=== PATIENT | female | born 1950 | race Caucasian/White ===

== ENCOUNTER → 2017-09-19 08:53 | Outpatient (CLI) | payer MEDICARE, MEDICAID, SELFPAY | PROVIDERS: Family Provider Family Medicine Geriatric Medicine; PCP Family Medicine Geriatric Medicine; Visit Provider Family Medicine Geriatric Medicine | DX: E11.9 Type 2 diabetes mellitus without complications (principal); I10 Essential (primary) hypertension; E55.9 Vitamin D deficiency, unspecified ==

== ENCOUNTER → 2017-10-16 08:52 | Outpatient (CLI) | payer MEDICARE, MEDICAID, SELFPAY ==
[2017-10-16 13:16] LABS: Absolute Lymphocyte Count 2.47 X10^3/ul (0.83-4.51); Absolute Neutrophil Count 5.1 X10^3/uL (2.0-7.7); Basophil# 0.03 X10^3/uL; Basophil% 0.4 % (0-1); Eosinophil# 0.15 X10^3/uL; Eosinophils% 1.8 % (0-5); Hematocrit 43.8 % (37-47); Hemoglobin 14.5 g/dl (12.0-15.0); Lymphocyte # 2.47 X10^3/ul (4.0); Lymphocyte % 29.3 % (19-41); Mean Corp Hgb Conc 33.1 g/gl (32-36); Mean Corpuscular Volume 96.7 fL (81-99); Mean Platelet Vol. 11.5 fl (6.2-12.0); Monocyte# 0.61 X10^3/uL; Monocyte% 7.2 % (0-10); Neutrophil # 5.13 X10^3/uL (2.7-7.7); Neutrophil % 60.7 % (47-70); POSITIVE COUNT NO; POSITIVE DIFFERENTIAL NO; POSITIVE MORPHOLOGY NO; Platelet Count 255 K/mm3 (150-450); RBC Distribution Width CV 12.7 % (11.6-14.6); RBC Distribution Width SD 43.9 fl (35.1-43.9); Red Blood Count 4.53 M/mm3 (4.2-5.4); White Blood Count 8.4 K/mm3 (4.4-11.0)
[2017-10-16 13:34] LABS: ALB/GLOB Ratio 0.9 RATIO (0.9-2.4); AST(SGOT) 13 U/L (15-37); Alanine Aminotransfer ALT/SGPT 24 U/L (13-56); Albumin, Serum 3.5 g/dL (3.2-5.0); Alkaline Phosphatase 101 U/L (45-117); Anion Gap 10 (5-15); BUN 16 mg/dL (7-18); BUN/Creat Ratio 19.1 RATIO (10-20); Chloride 108 mmol/L (98-107); Creatinine, Serum 0.84 mg/dL (0.55-1.02); EST Glomerular Filtration Rate 72 mL/min (>60); Est Glom Filt Rate - Afr Amer 87 mL/min (>60); Globulin 3.7 g/dL (2.2-4.2); Glucose 114 mg/dL (74-106); Potassium 4.2 mmol/L (3.5-5.1); Protein, Total 7.2 g/dL (6.4-8.2); Sodium Level 140 mmol/L (136-145)
[2017-10-18 12:47] LABS: Hep C Antibodies <0.1 s/co ratio (0.0-0.9)
== END ==
PROVIDERS: Family Provider Family Medicine Geriatric Medicine; PCP Family Medicine Geriatric Medicine; Visit Provider Family Medicine Geriatric Medicine
DX: E11.9 Type 2 diabetes mellitus without complications (principal); I10 Essential (primary) hypertension; E55.9 Vitamin D deficiency, unspecified; Z13.89 Encounter for screening for other disorder
CPT/HCPCS: 36415; 80053; 82306; 84443; 85025; 86803

== ENCOUNTER → 2017-10-18 08:22 | Outpatient (CLI) | payer MEDICARE, MEDICAID, SELFPAY ==
--- NOTE | 2017-10-18 08:27 | BD_ITS ---
STUDY: DUAL ENERGY X-RAY ABSORPTIOMETRY / DXA REASON FOR EXAM: Female, 67 years old. TYPE 2 DIABETIC- TAKES METFORMIN AND LANTUS SMOKER TAKES LASIX TAKES CALCIUM EVERY ONCE IN A WHILE DOES LITTLE EXERCISE UMU OF 2.5 INCHES. TECHNIQUE: Bone Mineral Density (BMD) measurements of lumbar spine and bilateral hips were obtained. COMPARISON: None. FINDINGS: Lumbar Spine (L1-L4): g/cm2 (1.4) / T-score (1.7) / Z-score (3.3) Findings are suggestive of normal bone density with a low fracture risk. Left Femur Total: g/cm2 (1.0) / T-score (0.0) / Z-score (1.3) Left Femoral Neck: g/cm2 (0.9) / T-score (-0.7) / Z-score (0.9) Right Femur Total: g/cm2 (1.0) / T-score (0.2) / Z-score (1.5) Right Femoral Neck: g/cm2 (0.9) / T-score (-0.8) / Z-score (0.8) BD/Dexa Bone Density Study IMPRESSION: The patient is considered normal as outlined below according to World Keith Organization (WHO) criteria with a low fracture risk. There has been of bone density since the previous examination. Reference Information: The T-score is the number of standard deviations above or below the standard which is normal for young adults at their peak bone mineral density. The World Health Organization (WHO) interprets the T-scores as follows: Above -1 Normal bone density Between -1 and -2.5 Osteopenia Equal to / or below -2.5 Osteoporosis As a practical clinical guideline, osteopenia may be graded as follows: Mild -1 through -1.5 Moderate -1.6 through -2.0 Severe -2.1 through -2.4 The Z-score is the number of standard deviations above or below age-matched controls. A Z-score of less than -1.5 would be considered abnormal. References: 1. NIH Osteoporosis and Related Bone Diseases http://www.osteo.org 2. International Society for Clinical Densitometry http://www.iscd.org 3. National Osteoporosis Foundation http://www.nof.org Electronically Signed: Grover Lee DO at 9:06 EDT , Service support ,
== END ==
PROVIDERS: Family Provider Family Medicine Geriatric Medicine; PCP Family Medicine Geriatric Medicine; Visit Provider Family Medicine Geriatric Medicine
DX: Z78.0 Asymptomatic menopausal state (principal)
CPT/HCPCS: 77080

== ENCOUNTER → 2018-04-17 14:54 | Outpatient (CLI) | payer MEDICARE, MEDICAID, SELFPAY ==
[2018-04-17 16:45] LABS: Absolute Lymphocyte Count 2.24 X10^3/ul (0.83-4.51); Absolute Neutrophil Count 4.3 X10^3/uL (2.0-7.7); Basophil# 0.03 X10^3/uL; Basophil% 0.4 % (0-1); Eosinophil# 0.11 X10^3/uL; Eosinophils% 1.5 % (0-5); Hematocrit 42.2 % (37-47); Hemoglobin 13.4 g/dl (12.0-15.0); Lymphocyte # 2.24 X10^3/ul (4.0); Lymphocyte % 30.7 % (19-41); Mean Corp Hgb Conc 31.8 g/gl (32-36); Mean Corpuscular Hgb 31.9 pg (27.0-32.0); Mean Corpuscular Volume 100.5 fL (81-99); Mean Platelet Vol. 11.9 fl (6.2-12.0); Monocyte# 0.54 X10^3/uL; Monocyte% 7.4 % (0-10); Neutrophil # 4.34 X10^3/uL (2.7-7.7); Neutrophil % 59.6 % (47-70); POSITIVE COUNT NO; POSITIVE DIFFERENTIAL NO; POSITIVE MORPHOLOGY NO; Platelet Count 220 K/mm3 (150-450); RBC Distribution Width CV 12.7 % (11.6-14.6); RBC Distribution Width SD 45.7 fl (35.1-43.9); White Blood Count 7.3 K/mm3 (4.4-11.0)
[2018-04-17 17:00] LABS: ALB/GLOB Ratio 1.1 RATIO (0.9-2.4); AST(SGOT) 10 U/L (15-37); Alanine Aminotransfer ALT/SGPT 26 U/L (13-56); Albumin, Serum 3.4 g/dL (3.2-5.0); Alkaline Phosphatase 92 U/L (45-117); Anion Gap 10 (5-15); BUN 10 mg/dL (7-18); Calcium,Total 8.8 mg/dL (8.5-10.1); Chloride 109 mmol/L (98-107); Creatinine, Serum 0.77 mg/dL (0.55-1.02); EST Glomerular Filtration Rate 79 mL/min (>60); Est Glom Filt Rate - Afr Amer 96 mL/min (>60); Glucose 104 mg/dL (74-106); Potassium 4.9 mmol/L (3.5-5.1); Protein, Total 6.4 g/dL (6.4-8.2); Sodium Level 142 mmol/L (136-145); Thyroid Stim Hormone (TSH) 1.51 uIU/mL (0.358-3.74)
[2018-04-17 17:46] LABS: Vitamin D,25 Hydroxy 36.1 ng/mL (29.95-100.01)
== END ==
PROVIDERS: Family Provider Family Medicine Geriatric Medicine; PCP Family Medicine Geriatric Medicine; Visit Provider Family Medicine Geriatric Medicine
DX: E11.9 Type 2 diabetes mellitus without complications (principal); E55.9 Vitamin D deficiency, unspecified; I10 Essential (primary) hypertension
CPT/HCPCS: 36415; 80053; 82306; 84443; 85025

== ENCOUNTER 2018-05-29 08:53 | Outpatient (RCR) | payer MEDICARE, SELFPAY | END 2018-06-24 23:59 | LOC: WC 08:53 | PROVIDERS: Family Provider Family Medicine Geriatric Medicine; PCP Family Medicine Geriatric Medicine; Visit Provider Podiatrist | DX: Z09 Encounter for follow-up examination after completed treatment for conditions other than malignant neoplasm (principal) ==

== ENCOUNTER → 2018-10-17 11:26 | Outpatient (CLI) | payer MEDICARE, SELFPAY ==
[2018-10-17 12:30] LABS: Absolute Lymphocyte Count 2.29 X10^3/ul (0.83-4.51); Absolute Neutrophil Count 4.8 X10^3/uL (2.0-7.7); Basophil# 0.02 X10^3/uL; Basophil% 0.3 % (0-1); Eosinophils% 1.3 % (0-5); Hematocrit 44.9 % (37-47); Hemoglobin 14.5 g/dl (12.0-15.0); Lymphocyte # 2.29 X10^3/ul (4.0); Lymphocyte % 29.1 % (19-41); Mean Corp Hgb Conc 32.3 g/gl (32-36); Mean Corpuscular Hgb 31.2 pg (27.0-32.0); Mean Corpuscular Volume 96.6 fL (81-99); Mean Platelet Vol. 11.4 fl (6.2-12.0); Monocyte# 0.57 X10^3/uL; Monocyte% 7.2 % (0-10); Neutrophil # 4.83 X10^3/uL (2.7-7.7); Neutrophil % 61.3 % (47-70); Platelet Count 222 K/mm3 (150-450); RBC Distribution Width CV 12.5 % (11.6-14.6); Red Blood Count 4.65 M/mm3 (4.2-5.4); White Blood Count 7.9 K/mm3 (4.4-11.0)
[2018-10-17 12:33] LABS: POSITIVE COUNT NO; POSITIVE DIFFERENTIAL NO; POSITIVE MORPHOLOGY NO
[2018-10-17 12:47] LABS: Vitamin D,25 Hydroxy 58.7 ng/mL (29.95-100.01)
[2018-10-17 13:13] LABS: AST(SGOT) 16 U/L (15-37); Alanine Aminotransfer ALT/SGPT 28 U/L (13-56); Albumin, Serum 3.6 g/dL (3.2-5.0); Alkaline Phosphatase 93 U/L (45-117); Anion Gap 11 (5-15); BUN 12 mg/dL (7-18); BUN/Creat Ratio 13.6 RATIO (10-20); Chloride 106 mmol/L (98-107); Creatinine, Serum 0.88 mg/dL (0.55-1.02); EST Glomerular Filtration Rate 68 mL/min (>60); Est Glom Filt Rate - Afr Amer 82 mL/min (>60); Globulin 3.6 g/dL (2.2-4.2); Glucose 138 mg/dL (74-106); Potassium 4.2 mmol/L (3.5-5.1); Protein, Total 7.2 g/dL (6.4-8.2); Sodium Level 138 mmol/L (136-145); Thyroid Stim Hormone (TSH) 1.43 uIU/mL (0.358-3.74)
== END ==
PROVIDERS: Family Provider Family Medicine Geriatric Medicine; PCP Family Medicine Geriatric Medicine; Visit Provider Family Medicine Geriatric Medicine
DX: E11.9 Type 2 diabetes mellitus without complications (principal); I10 Essential (primary) hypertension; E55.9 Vitamin D deficiency, unspecified
CPT/HCPCS: 36415; 80053; 82306; 84443; 85025

== ENCOUNTER → 2019-01-21 11:49 | Outpatient (CLI) | payer MEDICARE, SELFPAY ==
[2019-01-21 13:00] LABS: Absolute Lymphocyte Count 2.48 X10^3/uL (0.83-4.51); Absolute Neutrophil Count 5.5 X10^3/uL (2.0-7.7); Basophil# 0.06 X10^3/uL; Basophil% 0.7 % (0-1); Eosinophil# 0.11 X10^3/uL; Eosinophils% 1.2 % (0-5); Hematocrit 43.4 % (37-47); Hemoglobin 14.2 g/dL (12.0-15.0); Lymphocyte # 2.48 X10^3/ul (4.0); Mean Corp Hgb Conc 32.7 g/dL (32-36); Mean Corpuscular Hgb 31.7 pg (27.0-32.0); Mean Corpuscular Volume 96.9 fL (81-99); Mean Platelet Vol. 11.6 fl (6.2-12.0); Monocyte# 0.63 X10^3/uL; Monocyte% 7.1 % (0-10); NRBC Flagged by Analyzer 0 % (0-5); Neutrophil # 5.54 X10^3/uL (2.7-7.7); Neutrophil % 62.4 % (47-70); Platelet Count 249 K/mm3 (150-450); RBC Distribution Width CV 12.4 % (11.6-14.6); RBC Distribution Width SD 44.1 fl (35.1-43.9); Red Blood Count 4.48 M/mm3 (4.2-5.4); White Blood Count 8.9 K/mm3 (4.4-11.0)
[2019-01-21 13:14] LABS: Vitamin D,25 Hydroxy 75.9 ng/mL (29.95-100.01)
[2019-01-21 13:38] LABS: AST(SGOT) 12 U/L (15-37); Alanine Aminotransfer ALT/SGPT 26 U/L (13-56); Albumin, Serum 3.6 g/dL (3.2-5.0); Alkaline Phosphatase 87 U/L (45-117); Anion Gap 10 (5-15); BUN 14 mg/dL (7-18); BUN/Creat Ratio 13.9 RATIO (10-20); Calcium,Total 9.3 mg/dL (8.5-10.1); Chloride 107 mmol/L (98-107); Creatinine, Serum 1.01 mg/dL (0.55-1.02); EST Glomerular Filtration Rate 58 mL/min (>60); Est Glom Filt Rate - Afr Amer 70 mL/min (>60); Globulin 3.7 g/dL (2.2-4.2); Glucose 153 mg/dL (74-106); Potassium 4.3 mmol/L (3.5-5.1); Protein, Total 7.3 g/dL (6.4-8.2); Sodium Level 139 mmol/L (136-145); Thyroid Stim Hormone (TSH) 2.09 uIU/mL (0.358-3.74)
== END ==
PROVIDERS: Family Provider Family Medicine Geriatric Medicine; PCP Family Medicine Geriatric Medicine; Visit Provider Family Medicine Geriatric Medicine
DX: E11.9 Type 2 diabetes mellitus without complications (principal); I10 Essential (primary) hypertension; E55.9 Vitamin D deficiency, unspecified
CPT/HCPCS: 36415; 80053; 82306; 84443; 85025

== ENCOUNTER → 2019-04-24 12:05 | Outpatient (CLI) | payer MEDICARE, SELFPAY ==
[2019-04-24 12:43] LABS: Absolute Lymphocyte Count 2.49 X10^3/uL (0.83-4.51); Absolute Neutrophil Count 4.8 X10^3/uL (2.0-7.7); Basophil# 0.05 X10^3/uL; Basophil% 0.6 % (0-1); Eosinophil# 0.31 X10^3/uL; Eosinophils% 3.7 % (0-5); Hemoglobin 13.8 g/dL (12.0-15.0); Lymphocyte # 2.49 X10^3/ul (4.0); Mean Corp Hgb Conc 32.1 g/dL (32-36); Mean Corpuscular Hgb 31.6 pg (27.0-32.0); Mean Corpuscular Volume 98.4 fL (81-99); Mean Platelet Vol. 11.3 fl (6.2-12.0); Monocyte# 0.62 X10^3/uL; Monocyte% 7.5 % (0-10); NRBC Flagged by Analyzer 0 % (0-5); Neutrophil # 4.76 X10^3/uL (2.7-7.7); Neutrophil % 57.4 % (47-70); Platelet Count 247 K/mm3 (150-450); RBC Distribution Width CV 11.9 % (11.6-14.6); RBC Distribution Width SD 43.6 fl (35.1-43.9); Red Blood Count 4.37 M/mm3 (4.2-5.4); White Blood Count 8.3 K/mm3 (4.4-11.0)
[2019-04-24 12:56] LABS: Vitamin D,25 Hydroxy 82.4 ng/mL (29.95-100.01)
[2019-04-24 13:02] LABS: ALB/GLOB Ratio 0.9 RATIO (0.9-2.4); AST(SGOT) 16 U/L (15-37); Alanine Aminotransfer ALT/SGPT 26 U/L (13-56); Albumin, Serum 3.3 g/dL (3.2-5.0); Alkaline Phosphatase 93 U/L (45-117); Anion Gap 9 (5-15); BUN 12 mg/dL (7-18); BUN/Creat Ratio 14.2 RATIO (10-20); Chloride 106 mmol/L (98-107); Creatinine, Serum 0.84 mg/dL (0.55-1.02); EST Glomerular Filtration Rate 71 mL/min (>60); Est Glom Filt Rate - Afr Amer 86 mL/min (>60); Globulin 3.8 g/dL (2.2-4.2); Glucose 176 mg/dL (74-106); Potassium 4.6 mmol/L (3.5-5.1); Protein, Total 7.1 g/dL (6.4-8.2); Sodium Level 139 mmol/L (136-145); Thyroid Stim Hormone (TSH) 1.79 uIU/mL (0.358-3.74)
== END ==
PROVIDERS: Family Provider Family Medicine Geriatric Medicine; PCP Family Medicine Geriatric Medicine; Visit Provider Family Medicine Geriatric Medicine
DX: E11.9 Type 2 diabetes mellitus without complications (principal); I10 Essential (primary) hypertension; E55.9 Vitamin D deficiency, unspecified
CPT/HCPCS: 36415; 80053; 82306; 84443; 85025

== ENCOUNTER → 2019-11-19 11:03 | Outpatient (CLI) | payer MEDICARE, SELFPAY ==
[2019-11-19 12:44] LABS: Absolute Lymphocyte Count 2.46 X10^3/uL (0.83-4.51); Absolute Neutrophil Count 5.8 X10^3/uL (2.0-7.7); Basophil# 0.05 X10^3/uL; Basophil% 0.5 % (0-1); Eosinophil# 0.17 X10^3/uL; Eosinophils% 1.8 % (0-5); Lymphocyte # 2.46 X10^3/ul (4.0); Lymphocyte % 26.7 % (19-41); Mean Corp Hgb Conc 31.8 g/dL (32-36); Mean Corpuscular Volume 97.6 fL (81-99); Mean Platelet Vol. 11.2 fl (6.2-12.0); Monocyte% 7.6 % (0-10); NRBC Flagged by Analyzer 0 % (0-5); Neutrophil # 5.78 X10^3/uL (2.7-7.7); Platelet Count 266 K/mm3 (150-450); RBC Distribution Width CV 12.9 % (11.6-14.6); RBC Distribution Width SD 46.4 fl (35.1-43.9); Red Blood Count 4.51 M/mm3 (4.2-5.4); White Blood Count 9.2 K/mm3 (4.4-11.0)
[2019-11-19 13:18] LABS: Vitamin D,25 Hydroxy 60.8 ng/mL
[2019-11-19 13:38] LABS: ALB/GLOB Ratio 0.9 RATIO (0.9-2.4); AST(SGOT) 22 U/L (15-37); Alanine Aminotransfer ALT/SGPT 33 U/L (13-56); Albumin, Serum 3.4 g/dL (3.2-5.0); Alkaline Phosphatase 85 U/L (45-117); Anion Gap 9 (5-15); BUN 18 mg/dL (7-18); BUN/Creat Ratio 19.6 RATIO (10-20); Calcium,Total 8.9 mg/dL (8.5-10.1); Chloride 105 mmol/L (98-107); Creatinine, Serum 0.92 mg/dL (0.55-1.02); EST Glomerular Filtration Rate 64 mL/min (>60); Est Glom Filt Rate - Afr Amer 78 mL/min (>60); Globulin 3.8 g/dL (2.2-4.2); Glucose 123 mg/dL (74-106); Potassium 4.3 mmol/L (3.5-5.1); Protein, Total 7.2 g/dL (6.4-8.2); Sodium Level 135 mmol/L (136-145)
== END ==
PROVIDERS: PCP Family Medicine Geriatric Medicine; Visit Provider Family Medicine Geriatric Medicine
DX: E11.9 Type 2 diabetes mellitus without complications (principal); I10 Essential (primary) hypertension; E55.9 Vitamin D deficiency, unspecified
CPT/HCPCS: 36415; 80053; 82306; 84443; 85025

== ENCOUNTER → 2020-04-29 08:56 | Outpatient (CLI) | payer MEDICARE, SELFPAY ==
[2020-04-29 12:21] LABS: Absolute Lymphocyte Count 1.57 X10^3/uL (0.83-4.51); Basophil# 0.04 X10^3/uL; Basophil% 0.3 % (0-1); Eosinophil# 0.03 X10^3/uL; Eosinophils% 0.3 % (0-5); Hematocrit 41.2 % (37-47); Hemoglobin 12.9 g/dL (12.0-15.0); Lymphocyte # 1.57 X10^3/ul (4.0); Lymphocyte % 13.5 % (19-41); Mean Corp Hgb Conc 31.3 g/dL (32-36); Mean Corpuscular Hgb 31.2 pg (27.0-32.0); Mean Corpuscular Volume 99.8 fL (81-99); Mean Platelet Vol. 10.3 fl (6.2-12.0); Monocyte# 0.87 X10^3/uL; Monocyte% 7.5 % (0-10); NRBC Flagged by Analyzer 0 % (0-5); Neutrophil # 9.03 X10^3/uL (2.7-7.7); Platelet Count 295 K/mm3 (150-450); RBC Distribution Width CV 12.8 % (11.6-14.6); RBC Distribution Width SD 46.8 fl (35.1-43.9); Red Blood Count 4.13 M/mm3 (4.2-5.4); White Blood Count 11.6 K/mm3 (4.4-11.0)
[2020-04-29 12:32] LABS: ALB/GLOB Ratio 0.6 RATIO (0.9-2.4); AST(SGOT) 12 U/L (15-37); Alanine Aminotransfer ALT/SGPT 18 U/L (13-56); Albumin, Serum 2.8 g/dL (3.2-5.0); Alkaline Phosphatase 97 U/L (45-117); Anion Gap 8 (5-15); BUN 15 mg/dL (7-18); BUN/Creat Ratio 16.9 RATIO (10-20); Calcium,Total 9.1 mg/dL (8.5-10.1); Chloride 103 mmol/L (98-107); Creatinine, Serum 0.89 mg/dL (0.55-1.02); EST Glomerular Filtration Rate 67 mL/min (>60); Est Glom Filt Rate - Afr Amer 81 mL/min (>60); Globulin 4.8 g/dL (2.2-4.2); Glucose 121 mg/dL (74-106); Protein, Total 7.6 g/dL (6.4-8.2); Sodium Level 137 mmol/L (136-145); Thyroid Stim Hormone (TSH) 1.39 uIU/mL (0.358-3.74); Uric Acid 4.6 mg/dL (2.6-6.0)
[2020-04-29 12:58] LABS: Erythrocyte Sedimentation Rate 93 mm/hr (0-30)
[2020-04-29 13:39] LABS: M R Staph aureus DNA By PCR POSITIVE (Negative); Probe Check PASS; Staph aureus DNA By PCR POSITIVE (Negative)
[2020-04-29 13:45] LABS: Vitamin D,25 Hydroxy 36.3 ng/mL
--- NOTE | 2020-04-29 14:22 | VDUE_ITS ---
Reason For Study: PAIN Left Proximal Left jugular vein is spontaneous, widely patent, phasic, with no intraluminal echogenicity noted. Left subclavian vein is spontaneous, widely patent, phasic, with no intraluminal echogenicity noted. Left Arm Left axillary vein is spontaneous, patent, phasic, competent, compressible and demonstrates augmentation. Left brachial vein is compressible. Left cephalic vein is compressible. Left basilic vein is compressible. Left Lower Arm Left radial vein is compressible. Left ulnar vein is compressible. Interpretation Summary Deep veins of the left upper extremity are patent and compressible segmentally. There is no evidence of deep vein thrombosis. The superficial veins of the left upper extremity, the basilic and cephalic veins, are patent and compressible. There is no evidence of left upper extremity superficial thrombophlebitis involving the veins imaged. Ordering Physician: Ankush Rios Referring Physician: ANKUSH RIOS Performed By: Mare Moise, EMIR, RVT ?
--- NOTE | 2020-04-29 15:10 | RAD_ITS ---
STUDY: X-RAY - LEFT HAND REASON FOR EXAM: Female, 70 years old. patient states she has had swelling of third digit x 2 days, no injury, wound to tip of finger, swelling has spread to whole hand as well TECHNIQUE: 3 view(s) of the hand. COMPARISON: None. FINDINGS: Normal radiocarpal articulation. Normal distal radioulnar joint. Normal visualized carpal bones. 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 Normal second through fifth carpometacarpal joints. Normal metacarpi. Normal metacarpophalangeal joint of the thumb. Normal interphalangeal joint of the thumb. Normal proximal and distal phalanges of the thumb. Normal metacarpophalangeal joints of the second through fifth fingers. Normal proximal and distal interphalangeal joints of the second through fifth fingers. Destruction of the more Jorde of the third distal phalanx as well as areas of cortical destruction of the head of the middle phalanx consistent with osteomyelitis. Soft tissue swelling of the third digit consistent with cellulitis. RAD/Hand Min 3 Views IMPRESSION: Cellulitis of the third digit with osteomyelitis of the middle and distal phalanges with destruction of the majority of the distal phalanx. Electronically Signed: Marshall Martinez MD at 15:32 EST Tel , Service support ,
== END ==
PROVIDERS: PCP Family Medicine Geriatric Medicine; Visit Provider Family Medicine Geriatric Medicine
DX: E11.9 Type 2 diabetes mellitus without complications (principal); I10 Essential (primary) hypertension; E55.9 Vitamin D deficiency, unspecified; M79.622 Pain in left upper arm; M10.9 Gout, unspecified; L03.019 Cellulitis of unspecified finger; B95.62 Methicillin resistant Staphylococcus aureus infection as the cause of diseases classified elsewhere; M79.609 Pain in unspecified limb
CPT/HCPCS: 36415; 73130; 80053; 82306; 84443; 84550; 85025; 85652; 86140; 87070; 87077; 87186; 87205; 87640; 93971

== ENCOUNTER 2020-04-30 09:12 | Emergency (ER) | payer MEDICARE, SELFPAY ==
[2020-04-30 09:12] VITALS: BP 123/73; PULSE 91; RESP 15; TEMP 36.6; O2SAT 98; BMI 46.4
--- NOTE | 2020-04-30 11:15 | RAD_ITS ---
STUDY: X-RAY - LEFT HAND REASON FOR EXAM: Female, 70 years old. CELLULITIS TECHNIQUE: 3 view(s) of the hand. COMPARISON: 04/29/2020 FINDINGS: Normal radiocarpal articulation. Normal distal radioulnar joint. Normal visualized carpal bones. 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 Normal second through fifth carpometacarpal joints. Normal metacarpi. Normal metacarpophalangeal joint of the thumb. Normal interphalangeal joint of the thumb. Normal proximal and distal phalanges of the thumb. Normal metacarpophalangeal joints of the second through fifth fingers. Normal proximal and distal interphalangeal joints of the second through fifth fingers. Normal phalanges of the second fourth fifth fingers. Diffuse soft tissue swelling of the third digit consistent with cellulitis. There is no change in the destruction of the distal phalanx and the head of the middle phalanx consistent with osteomyelitis. RAD/Hand Min 3 Views IMPRESSION: No change in cellulitis of the third digit with osteomyelitis of the middle and distal phalanges. Electronically Signed: Marshall Martinez MD at 11:37 EST Tel , Service support ,
--- NOTE | 2020-04-30 12:11 | ED.DCSUM_ITS ---
History of Present Illness Chief Complaint: Cellulitis Narrative: Patient presenting for evaluation secondary to an infection of the left hand. Patient does have an underlying history of diabetes. She reports that she has been dealing with swelling of her long digit on left hand for quite some time, but over the course of the last week the swelling got worse, and over the course of the last 2 days she noted that there was some spreading redness and swelling of the top of her hand. She denies constitutional symptoms such as fever nausea vomiting diarrhea. Patient went to her primary care yesterday who did lab work and an x-ray which demonstrated osteomyelitis and positive MRSA in the finger and recommended that she come to the emergency department for IV antibiotics and likely admission. Review of systems otherwise negative. Past Medical History - Allergies and Home Meds Allergies/Adverse Reactions: Allergies Sulfa (Sulfonamide Antibiotics) Allergy (Verified 04/30/20 09:16) Shortness of breath Prior records reviewed: Yes Past Medical History: - - Diabetes, hypertension Lives: Alone Smoking Status: Current every day smoker Alcohol: None Drugs: None Review of Systems All systems negative except as indicated General: Denies: Chills, Fever, Sweats Eyes: Denies: Visual changes - bilaterally, Diplopia ENT: Denies: Rhinorrhea, Sore throat Cardiovascular: Denies: Chest pain, Palpitations Respiratory: Denies: Dyspnea, Cough, Dyspnea on exertion Gastrointestinal: Denies: Abdominal pain, Nausea, Vomiting, Diarrhea, Melena, Hematochezia Genitourinary: Denies: Dysuria, Hematuria, Frequency Musculoskeletal: Reports: Extremity Pain Skin: Reports: Rash Neurological: Denies: Headache, Weakness, Numbness Physical Exam Vital Signs/Narrative: Vital Signs Temp Pulse Resp BP Pulse Ox 04/30/20 09:12 97.9 F 91 15 123/73 H 98 Inital Vital Signs reviewed: Yes Left Hand: - - Examination of patient's left hand shows fusiform swelling of the patient's long digit. There is purulent drainage coming from the distal portion of the patient's finger with complete obliteration of the nailbed. No evidence of pain along the flexor tendon. There is erythematous changes over the General: Well nourished, Well developed, Obese Head: Normocephalic, Atraumatic Eyes: Perrl, EOMI Neck: Nontender, Full ROM Cardiovascular: Regular rate, Regular rhythm, No murmurs, - - 2+ radial pulses bilaterally symmetric Respiratory: No distress, CTA bilaterally, Chest nontender Abdomen: Soft, Nontender, Nondistended, Normal bowel sounds Skin: Rash Neurological: Alert, Oriented x3, Cranial nerves II-XII grossly intact, Normal Strength, Normal Sensation Psychological: Normal affect Diagnostic/Tx/Re-eval Clinical Impression(s) from Imaging Studies Hand X-Ray 04/30/20 11:15 IMPRESSION: No change in cellulitis of the third digit with osteomyelitis of the middle and distal phalanges. Electronically Signed: Marshall Martinez MD at 11:37 EST Tel , Service support , - Medical Decision Making Patient presented secondary to osteomyelitis and cellulitis. IV was established cultures were obtained. I reviewed the patient's records from yesterday, the x- ray does demonstrate osteomyelitis this was reconfirmed on an x-ray today. She has a leukocytosis and elevated of her ESR and CRP yesterday. Patient was given a dose of vancomycin in the emergency department. Plastic surgery was not able to provide consultation today, I consulted general orthopedics Dr. Waters who did state that he would see the patient in consultation should she need amputation of the finger. I believe the patient requires admission I discussed this with the hospitalist. After discussion with the hospitalist he did come down and evaluate the patient he would feel more comfortable if the patient was evaluated at a facility that had hand surgery on-call. Patient requested to be transferred to [facility]. ED Disposition - Plan for ED Patient: Disposition: [facility] Diagnosis: Osteomyelitis of finger of left hand
[2020-04-30 12:15] LABS: Absolute Lymphocyte Count 2.07 X10^3/uL (0.83-4.51); Absolute Neutrophil Count 9.2 X10^3/uL (2.0-7.7); Basophil# 0.04 X10^3/uL; Basophil% 0.3 % (0-1); Eosinophil# 0.04 X10^3/uL; Eosinophils% 0.3 % (0-5); Hematocrit 43.9 % (37-47); Hemoglobin 13.8 g/dL (12.0-15.0); Lymphocyte # 2.07 X10^3/ul (4.0); Lymphocyte % 17.1 % (19-41); Mean Corp Hgb Conc 31.4 g/dL (32-36); Mean Corpuscular Hgb 31.3 pg (27.0-32.0); Mean Corpuscular Volume 99.5 fL (81-99); Mean Platelet Vol. 9.8 fl (6.2-12.0); Monocyte% 5.8 % (0-10); NRBC Flagged by Analyzer 0 % (0-5); Neutrophil # 9.18 X10^3/uL (2.7-7.7); Neutrophil % 75.9 % (47-70); Platelet Count 324 K/mm3 (150-450); RBC Distribution Width CV 12.7 % (11.6-14.6); RBC Distribution Width SD 46.8 fl (35.1-43.9); Red Blood Count 4.41 M/mm3 (4.2-5.4); White Blood Count 12.1 K/mm3 (4.4-11.0)
[2020-04-30 12:27] LABS: Anion Gap 6 (5-15); BUN 11 mg/dL (7-18); BUN/Creat Ratio 13.3 RATIO (10-20); Calcium,Total 9.3 mg/dL (8.5-10.1); Chloride 103 mmol/L (98-107); Creatinine, Serum 0.83 mg/dL (0.55-1.02); EST Glomerular Filtration Rate 73 mL/min (>60); Est Glom Filt Rate - Afr Amer 88 mL/min (>60); Estimated Creatinine Clearance 56.75 ml/min; Glucose 78 mg/dL (74-106); Potassium 4.1 mmol/L (3.5-5.1); Sodium Level 138 mmol/L (136-145)
[2020-04-30 12:29] VITALS: BP 120/68; PULSE 77; RESP 16; O2SAT 97
[2020-04-30 12:58] LABS: Erythrocyte Sedimentation Rate 99 mm/hr (0-30)
[2020-04-30] MEDS: DiphenhydrAMINE 25 MG Capsule PO (13:08)
[2020-04-30 13:27] LABS: Lactic Acid 1.5 mmol/L (0.4-1.9)
[2020-04-30 17:07] VITALS: BP 132/67; PULSE 92; RESP 16; O2SAT 98
[2020-04-30 17:53] VITALS: BP 132/67; PULSE 92; RESP 16; TEMP 36.6; O2SAT 98
== END 2020-04-30 17:24 | disposition short-term general hospital (02) ==
PROVIDERS: Emergency Provider Emergency Medicine; PCP Family Medicine Geriatric Medicine
DX: E11.69 Type 2 diabetes mellitus with other specified complication (principal); M86.8X4 Other osteomyelitis, hand; I10 Essential (primary) hypertension; F17.200 Nicotine dependence, unspecified, uncomplicated; E66.9 Obesity, unspecified; Z79.4 Long term (current) use of insulin; Z79.899 Other long term (current) drug therapy
CPT/HCPCS: 73130; 80048; 83605; 85025; 85652; 86140; 87040; 96365; 96366; 99284; J7040; J7050; A4216

== ENCOUNTER → 2020-05-13 | Outpatient (CLI) | payer MEDICARE, SELFPAY ==
[2020-04-30 09:12] VITALS: BMI 46.4
[2020-05-13 16:47] LABS: Vancomycin, Trough Level 19.6 ug/mL (5.0-15.0)
== END | disposition home or self-care (01) ==
LOC: LABSPEC 15:36
PROVIDERS: PCP Family Medicine Geriatric Medicine
DX: M86.9 Osteomyelitis, unspecified (principal); Z79.4 Long term (current) use of insulin
CPT/HCPCS: 80202

== ENCOUNTER → 2020-05-17 | Outpatient (CLI) | payer MEDICARE, SELFPAY ==
[2020-04-30 09:12] VITALS: BMI 46.4
[2020-05-17 11:13] LABS: Absolute Lymphocyte Count 1.51 X10^3/uL (0.83-4.51); Absolute Neutrophil Count 4.4 X10^3/uL (2.0-7.7); Basophil# 0.04 X10^3/uL; Basophil% 0.6 % (0-1); Eosinophil# 0.15 X10^3/uL; Eosinophils% 2.3 % (0-5); Hematocrit 39.3 % (37-47); Hemoglobin 12.4 g/dL (12.0-15.0); Lymphocyte # 1.51 X10^3/ul (4.0); Lymphocyte % 22.8 % (19-41); Mean Corp Hgb Conc 31.6 g/dL (32-36); Mean Corpuscular Hgb 30.9 pg (27.0-32.0); Mean Platelet Vol. 10.8 fl (6.2-12.0); Monocyte# 0.51 X10^3/uL; Monocyte% 7.7 % (0-10); NRBC Flagged by Analyzer 0 % (0-5); Neutrophil # 4.36 X10^3/uL (2.7-7.7); Neutrophil % 65.8 % (47-70); Platelet Count 266 K/mm3 (150-450); RBC Distribution Width CV 13.2 % (11.6-14.6); RBC Distribution Width SD 47.2 fl (35.1-43.9); Red Blood Count 4.01 M/mm3 (4.2-5.4); White Blood Count 6.6 K/mm3 (4.4-11.0)
[2020-05-17 11:42] LABS: Anion Gap 6 (5-15); BUN 18 mg/dL (7-18); BUN/Creat Ratio 17.3 RATIO (10-20); Calcium,Total 9.1 mg/dL (8.5-10.1); Chloride 106 mmol/L (98-107); Creatinine, Serum 1.04 mg/dL (0.55-1.02); EST Glomerular Filtration Rate 56 mL/min (>60); Est Glom Filt Rate - Afr Amer 67 mL/min (>60); Glucose 134 mg/dL (74-106); Potassium 4.6 mmol/L (3.5-5.1); Sodium Level 139 mmol/L (136-145)
[2020-05-17 11:43] LABS: Vancomycin, Random Level 2.1 ug/mL (0.0-15.0)
== END | disposition home or self-care (01) ==
DX: Z47.81 Encounter for orthopedic aftercare following surgical amputation (principal); M86.9 Osteomyelitis, unspecified
CPT/HCPCS: 80048; 80202; 85025

== ENCOUNTER → 2020-05-19 09:45 | Outpatient (CLI) | payer MEDICARE, SELFPAY ==
[2020-04-30 09:12] VITALS: BMI 46.4
[2020-05-19 13:12] LABS: Absolute Lymphocyte Count 1.34 X10^3/uL (0.83-4.51); Absolute Neutrophil Count 4.3 X10^3/uL (2.0-7.7); Basophil# 0.06 X10^3/uL; Basophil% 0.9 % (0-1); Eosinophil# 0.19 X10^3/uL; Eosinophils% 2.9 % (0-5); Hematocrit 41.1 % (37-47); Hemoglobin 12.8 g/dL (12.0-15.0); Lymphocyte # 1.34 X10^3/ul (4.0); Lymphocyte % 20.6 % (19-41); Mean Corp Hgb Conc 31.1 g/dL (32-36); Mean Corpuscular Hgb 31.1 pg (27.0-32.0); Mean Corpuscular Volume 99.8 fL (81-99); Mean Platelet Vol. 10.8 fl (6.2-12.0); Monocyte# 0.56 X10^3/uL; Monocyte% 8.6 % (0-10); NRBC Flagged by Analyzer 0 % (0-5); Neutrophil # 4.28 X10^3/uL (2.7-7.7); Neutrophil % 65.9 % (47-70); Platelet Count 287 K/mm3 (150-450); RBC Distribution Width CV 13.4 % (11.6-14.6); RBC Distribution Width SD 49.1 fl (35.1-43.9); Red Blood Count 4.12 M/mm3 (4.2-5.4); White Blood Count 6.5 K/mm3 (4.4-11.0)
[2020-05-19 13:27] LABS: Anion Gap 6 (5-15); BUN 19 mg/dL (7-18); BUN/Creat Ratio 19.7 RATIO (10-20); CRP 3.95 mg/L (0.0-3.0); Calcium,Total 9.1 mg/dL (8.5-10.1); Chloride 108 mmol/L (98-107); Creatinine, Serum 0.97 mg/dL (0.55-1.02); EST Glomerular Filtration Rate 61 mL/min (>60); Est Glom Filt Rate - Afr Amer 73 mL/min (>60); Glucose 91 mg/dL (74-106); Sodium Level 140 mmol/L (136-145)
[2020-05-19 13:34] LABS: Erythrocyte Sedimentation Rate 47 mm/hr (0-30)
== END ==
PROVIDERS: Visit Provider Family Medicine Geriatric Medicine
DX: I10 Essential (primary) hypertension (principal); R06.89 Other abnormalities of breathing
CPT/HCPCS: 36415; 80048; 85025; 85652; 86140

== ENCOUNTER → 2020-06-15 09:49 | Outpatient (CLI) | payer MEDICARE, SELFPAY ==
[2020-06-15 10:26] LABS: Absolute Lymphocyte Count 1.61 X10^3/uL (0.83-4.51); Absolute Neutrophil Count 3.8 X10^3/uL (2.0-7.7); Basophil# 0.03 X10^3/uL; Basophil% 0.5 % (0-1); Eosinophil# 0.17 X10^3/uL; Eosinophils% 2.7 % (0-5); Hematocrit 41.6 % (37-47); Hemoglobin 13.4 g/dL (12.0-15.0); Lymphocyte # 1.61 X10^3/ul (4.0); Lymphocyte % 25.8 % (19-41); Mean Corp Hgb Conc 32.2 g/dL (32-36); Mean Corpuscular Hgb 31.3 pg (27.0-32.0); Mean Corpuscular Volume 97.2 fL (81-99); Mean Platelet Vol. 10.3 fl (6.2-12.0); Monocyte# 0.55 X10^3/uL; Monocyte% 8.8 % (0-10); NRBC Flagged by Analyzer 0 % (0-5); Neutrophil # 3.83 X10^3/uL (2.7-7.7); Neutrophil % 61.2 % (47-70); Platelet Count 292 K/mm3 (150-450); RBC Distribution Width CV 13.7 % (11.6-14.6); Red Blood Count 4.28 M/mm3 (4.2-5.4); White Blood Count 6.3 K/mm3 (4.4-11.0)
[2020-06-15 11:02] LABS: Anion Gap 6 (5-15); BUN 24 mg/dL (7-18); BUN/Creat Ratio 27.2 RATIO (10-20); Calcium,Total 9.1 mg/dL (8.5-10.1); Chloride 105 mmol/L (98-107); Creatinine, Serum 0.88 mg/dL (0.55-1.02); EST Glomerular Filtration Rate 67 mL/min (>60); Est Glom Filt Rate - Afr Amer 81 mL/min (>60); Glucose 138 mg/dL (74-106); Potassium 4.6 mmol/L (3.5-5.1); Sodium Level 136 mmol/L (136-145)
[2020-06-15 11:08] LABS: Lactic Acid 1.4 mmol/L (0.4-1.9)
== END ==
PROVIDERS: Referring Provider Family Medicine Geriatric Medicine; Visit Provider Family Medicine Geriatric Medicine
DX: A41.9 Sepsis, unspecified organism (principal)
CPT/HCPCS: 36415; 80048; 83605; 85025; 87040

== ENCOUNTER → 2020-11-25 08:59 | Outpatient (CLI) | payer MEDICARE, SELFPAY ==
[2020-11-25 12:22] LABS: Absolute Lymphocyte Count 1.76 X10^3/uL (0.83-4.51); Absolute Neutrophil Count 3.8 X10^3/uL (2.0-7.7); Basophil# 0.03 X10^3/uL; Basophil% 0.5 % (0-1); Eosinophil# 0.09 X10^3/uL; Eosinophils% 1.4 % (0-5); Hematocrit 43.6 % (37-47); Hemoglobin 14.2 g/dL (12.0-15.0); Lymphocyte # 1.76 X10^3/ul (0.83-4.51); Lymphocyte % 27.6 % (19-41); Mean Corp Hgb Conc 32.6 g/dL (32-36); Mean Corpuscular Hgb 31.9 pg (27.0-32.0); Monocyte# 0.59 X10^3/uL; Monocyte% 9.3 % (0-10); NRBC Flagged by Analyzer 0 % (0-5); Neutrophil # 3.81 X10^3/uL (2.7-7.7); Neutrophil % 59.8 % (47-70); Platelet Count 239 K/mm3 (150-450); RBC Distribution Width CV 13.2 % (11.6-14.6); RBC Distribution Width SD 47.9 fl (35.1-43.9); Red Blood Count 4.45 M/mm3 (4.2-5.4); White Blood Count 6.4 K/mm3 (4.4-11.0)
[2020-11-25 12:41] LABS: Vitamin D,25 Hydroxy 46.6 ng/mL
[2020-11-25 13:01] LABS: ALB/GLOB Ratio 0.8 RATIO (0.9-2.4); AST(SGOT) 19 U/L (15-37); Alanine Aminotransfer ALT/SGPT 33 U/L (13-56); Albumin, Serum 3.3 g/dL (3.2-5.0); Alkaline Phosphatase 92 U/L (45-117); Anion Gap 7 (5-15); BUN 20 mg/dL (7-18); BUN/Creat Ratio 21.3 RATIO (10-20); Chloride 104 mmol/L (98-107); Creatinine, Serum 0.94 mg/dL (0.55-1.02); EST Glomerular Filtration Rate 63 mL/min (>60); Est Glom Filt Rate - Afr Amer 76 mL/min (>60); Glucose 133 mg/dL (74-106); Potassium 4.7 mmol/L (3.5-5.1); Protein, Total 7.3 g/dL (6.4-8.2); Sodium Level 137 mmol/L (136-145); Thyroid Stim Hormone (TSH) 2.31 uIU/mL (0.358-3.74)
== END ==
PROVIDERS: PCP Family Medicine Geriatric Medicine; Visit Provider Family Medicine Geriatric Medicine
DX: E11.9 Type 2 diabetes mellitus without complications (principal); I10 Essential (primary) hypertension; E55.9 Vitamin D deficiency, unspecified
CPT/HCPCS: 36415; 80053; 82306; 84443; 85025

== ENCOUNTER 2021-09-23 09:46 | Outpatient (CLI) | payer MEDICARE, SELFPAY ==
[2021-09-23 10:49] LABS: Absolute Lymphocyte Count 1.44 X10^3/uL (0.83-4.51); Absolute Neutrophil Count 4.7 X10^3/uL (2.0-7.7); Basophil# 0.04 X10^3/uL; Basophil% 0.6 % (0-1); Eosinophil# 0.07 X10^3/uL; Hematocrit 43.9 % (37-47); Hemoglobin 14.3 g/dL (12.0-15.0); Lymphocyte # 1.44 X10^3/ul (0.83-4.51); Lymphocyte % 21.1 % (19-41); Mean Corp Hgb Conc 32.6 g/dL (32-36); Mean Corpuscular Hgb 31.8 pg (27.0-32.0); Mean Corpuscular Volume 97.6 fL (81-99); Mean Platelet Vol. 10.5 fl (6.2-12.0); Monocyte# 0.56 X10^3/uL; Monocyte% 8.2 % (0-10); NRBC Flagged by Analyzer 0 % (0-5); Neutrophil # 4.68 X10^3/uL (2.7-7.7); Neutrophil % 68.4 % (47-70); Platelet Count 265 K/mm3 (150-450); RBC Distribution Width CV 13.1 % (11.6-14.6); RBC Distribution Width SD 46.8 fl (35.1-43.9); White Blood Count 6.8 K/mm3 (4.4-11.0)
[2021-09-23 11:36] LABS: ALB/GLOB Ratio 0.8 RATIO (0.9-2.4); AST(SGOT) 17 U/L (15-37); Alanine Aminotransfer ALT/SGPT 21 U/L (13-56); Albumin, Serum 3.1 g/dL (3.2-5.0); Alkaline Phosphatase 97 U/L (45-117); Anion Gap 4 (5-15); BUN 39 mg/dL (7-18); Calcium,Total 8.8 mg/dL (8.5-10.1); Chloride 105 mmol/L (98-107); Cholesterol 120 mg/dL (200); Creatinine, Serum 1.26 mg/dL (0.55-1.02); EST Glomerular Filtration Rate 44 mL/min (>60); Est Glom Filt Rate - Afr Amer 54 mL/min (>60); Glucose 183 mg/dL (74-106); High Density Lipoprotein 60 mg/dL; Potassium 4.7 mmol/L (3.5-5.1); Protein, Total 7.1 g/dL (6.4-8.2); Sodium Level 135 mmol/L (136-145); Thyroid Stim Hormone (TSH) 1.62 uIU/mL (0.358-3.74); Triglycerides 94 mg/dL; Very Low Density Lipoprotein 19 mg/dL (5-40)
[2021-09-23 14:18] LABS: Vitamin D,25 Hydroxy 39.6 ng/mL
== END 2021-09-23 23:59 | disposition home or self-care (01) ==
LOC: POLAB3 09:47
PROVIDERS: PCP Family Medicine Geriatric Medicine; Visit Provider Family Medicine Geriatric Medicine
DX: E55.9 Vitamin D deficiency, unspecified (principal); E11.9 Type 2 diabetes mellitus without complications; E78.5 Hyperlipidemia, unspecified; I10 Essential (primary) hypertension
CPT/HCPCS: 36415; 80053; 80061; 82306; 84443; 85025

== ENCOUNTER → 2021-11-01 | Outpatient (CLI) | payer MEDICARE, SELFPAY ==
--- NOTE | 2021-11-01 08:20 | BI_ITS ---
MAMMOGRAPHY - BILATERAL SCREENING REASON FOR EXAM: Female, 71 years old. Routine annual screening examination. PERTINENT HISTORY: Non-contributory. TECHNIQUE: Digital bilateral breast nena (3D mammographic acquisition) in the CC and MLO projections. 2-D mediolateral oblique (MLO) and craniocaudad (CC) views of both breasts were obtained. CAD: Full Field Digital Mammography with Computer Added Detection was performed. COMPARISON: No comparison mammograms available at this time. If any prior films become available, an addendum to this report can be generated. FINDINGS: Breast Composition: The breasts are almost entirely fatty. There are no dominant masses or suspicious calcifications. Small fat-containing left axillary lymph nodes. No other significant abnormalities are identified. BI/SCRN MAMM (CAD)W/NENA BILAT IMPRESSION: Negative screening mammogram. Yearly followup mammogram recommended. (A) ASSESSMENT CATEGORY: BIRADS Category 2: Benign. A letter regarding these results will be sent to the patient by the facility within 30 days. Approximately 10% of breast cancers are not detected by mammography. A normal mammogram should not delay biopsy of a clinically suspicious abnormality. [id number] Electronically Signed: Shon Middleton MD at 9:46 EDT ,
--- NOTE | 2021-11-01 08:36 | BD_ITS ---
STUDY: DUAL ENERGY X-RAY ABSORPTIOMETRY / DXA REASON FOR EXAM: Female, 71 years old. [id number]. Patient is postmenopausal. TECHNIQUE: Bone Mineral Density (BMD) measurements of lumbar spine and bilateral hips were obtained. COMPARISON: Comparison is made with prior study 10/18/2017. FINDINGS: Lumbar Spine (L1-L4): g/cm2 (1.248) / T-score (1.3) / Z-score (3.7) Findings are suggestive of normal bone density with a low fracture risk. Left Femur Total: g/cm2 (0.906) / T-score (-0.3) / Z-score (1.3) Left Femoral Neck: g/cm2 (0.933) / T-score (0.8) / Z-score (2.6) Right Femur Total: g/cm2 (0.895) / T-score (-0.4) / Z-score (1.2) Right Femoral Neck: g/cm2 (0.727) / T-score (-1.1) / Z-score (0.8) The T-Scores on the most recent prior examination were: Lumbar Spine (L1-L4): There has been worsening of bone density since the previous examination. Left Femur Total: which represents a worsening of 3.8%. Right Femur Total: which represents a worsening of 7.2%. BD/Dexa Bone Density Study IMPRESSION: The patient is considered osteopenic as outlined below according to World Keith Organization (WHO) criteria with a low fracture risk. There has been worsening of bone density since the previous examination. Reference Information: The T-score is the number of standard deviations above or below the standard which is normal for young adults at their peak bone mineral density. The World Health Organization (WHO) interprets the T-scores as follows: Above -1 Normal bone density Between -1 and -2.5 Osteopenia Equal to / or below -2.5 Osteoporosis As a practical clinical guideline, osteopenia may be graded as follows: Mild -1 through -1.5 Moderate -1.6 through -2.0 Severe -2.1 through -2.4 The Z-score is the number of standard deviations above or below age-matched controls. A Z-score of less than -1.5 would be considered abnormal. References: 1. NIH Osteoporosis and Related Bone Diseases www osteo.org 2. International Society for Clinical Densitometry www iscd.org 3. National Osteoporosis Foundation www nof.org Electronically Signed: Shon Middleton MD at 9:19 EDT ,
== END | disposition home or self-care (01) ==
PROVIDERS: PCP Family Medicine Geriatric Medicine; Visit Provider Family Medicine Geriatric Medicine
DX: Z12.31 Encounter for screening mammogram for malignant neoplasm of breast (principal); Z78.0 Asymptomatic menopausal state; M85.80 Other specified disorders of bone density and structure, unspecified site
CPT/HCPCS: 77063; 77067; 77080

== ENCOUNTER → 2021-11-30 | Outpatient (CLI) | payer MEDICARE, SELFPAY ==
[2021-11-30 12:02] LABS: Absolute Lymphocyte Count 1.61 X10^3/uL (0.83-4.51); Basophil# 0.03 X10^3/uL; Basophil% 0.5 % (0-1); Eosinophil# 0.06 X10^3/uL; Eosinophils% 0.9 % (0-5); Hematocrit 42.1 % (37-47); Hemoglobin 13.3 g/dL (12.0-15.0); Lymphocyte # 1.61 X10^3/ul (0.83-4.51); Lymphocyte % 25.3 % (19-41); Mean Corp Hgb Conc 31.6 g/dL (32-36); Mean Corpuscular Hgb 31.7 pg (27.0-32.0); Mean Corpuscular Volume 100.5 fL (81-99); Monocyte# 0.61 X10^3/uL; Monocyte% 9.6 % (0-10); NRBC Flagged by Analyzer 0 % (0-5); Neutrophil # 4.02 X10^3/uL (2.7-7.7); Neutrophil % 63.2 % (47-70); Platelet Count 203 K/mm3 (150-450); RBC Distribution Width CV 13.2 % (11.6-14.6); RBC Distribution Width SD 48.9 fl (35.1-43.9); Red Blood Count 4.19 M/mm3 (4.2-5.4); White Blood Count 6.4 K/mm3 (4.4-11.0)
[2021-11-30 12:20] LABS: Vitamin D,25 Hydroxy 45.1 ng/mL
[2021-11-30 12:41] LABS: ALB/GLOB Ratio 0.8 RATIO (0.9-2.4); AST(SGOT) 25 U/L (15-37); Alanine Aminotransfer ALT/SGPT 30 U/L (13-56); Albumin, Serum 3.1 g/dL (3.2-5.0); Alkaline Phosphatase 89 U/L (45-117); Anion Gap 6 (5-15); BUN 23 mg/dL (7-18); Calcium,Total 8.9 mg/dL (8.5-10.1); Chloride 107 mmol/L (98-107); Cholesterol 173 mg/dL (200); EST Glomerular Filtration Rate 58 mL/min (>60); Est Glom Filt Rate - Afr Amer 70 mL/min (>60); Globulin 3.8 g/dL (2.2-4.2); Glucose 92 mg/dL (74-106); High Density Lipoprotein 58 mg/dL; Potassium 4.4 mmol/L (3.5-5.1); Protein, Total 6.9 g/dL (6.4-8.2); Sodium Level 140 mmol/L (136-145); Thyroid Stim Hormone (TSH) 1.57 uIU/mL (0.358-3.74); Triglycerides 105 mg/dL; Very Low Density Lipoprotein 21 mg/dL (5-40)
== END | disposition home or self-care (01) ==
LOC: POLAB3 10:10
PROVIDERS: PCP Family Medicine Geriatric Medicine; Visit Provider Family Medicine Geriatric Medicine
DX: I10 Essential (primary) hypertension (principal); E11.9 Type 2 diabetes mellitus without complications; E78.5 Hyperlipidemia, unspecified; E55.9 Vitamin D deficiency, unspecified
CPT/HCPCS: 36415; 80053; 80061; 82306; 84443; 85025

== ENCOUNTER → 2022-01-02 | Outpatient (CLI) | payer MEDICARE, SELFPAY ==
[2022-01-02 10:12] LABS: BUN 32 mg/dL (7-18); BUN/Creat Ratio 34.2 RATIO (10-20); Chloride 108 mmol/L (98-107); Creatinine, Serum 0.94 mg/dL (0.55-1.02); EST Glomerular Filtration Rate 63 mL/min (>60); Est Glom Filt Rate - Afr Amer 76 mL/min (>60); Glucose 137 mg/dL (74-106); Phosphorus 3.4 mg/dL (2.5-4.9); Potassium 4.3 mmol/L (3.5-5.1); Sodium Level 138 mmol/L (136-145)
== END | disposition home or self-care (01) ==
LOC: LAB 08:38
PROVIDERS: PCP Family Medicine Geriatric Medicine; Referring Provider Internal Medicine Nephrology; Visit Provider Internal Medicine Nephrology
DX: N25.9 Disorder resulting from impaired renal tubular function, unspecified (principal)
CPT/HCPCS: 36415; 80069

== ENCOUNTER → 2022-02-17 | Outpatient (CLI) | payer MEDICARE, SELFPAY | END | disposition home or self-care (01) | LOC: POLAB3 10:56 → LABSPEC 10:56 | PROVIDERS: PCP Family Medicine Geriatric Medicine; Visit Provider Family Medicine Geriatric Medicine | DX: N39.0 Urinary tract infection, site not specified (principal) | CPT/HCPCS: 87086; 87088 ==

== ENCOUNTER 2022-02-24 12:00 | Outpatient (RCR) | payer MEDICARE, SELFPAY ==
--- NOTE | 2021-12-29 12:21 | HP.PTEVAL ---
Patient's Visit Information MACY HERRERA is a 71 year old F referred to Physical Therapy by Dr. Ankush Rios MD with a diagnosis of KNEE PAIN. Date of Evaluation: 12/29/21 Physical Therapist: Kristine Riley PT, Cert MDT - Visit Plan Frequency: 2-3x /Week Duration: 4-6 Weeks Plan: *CHECK AUTH: RECORD # OF VISITS APPROVED AND EXPIRATION DATE. CHECK CODES APPROVED WITH POC*. *2017 LUMBAR X-RAYS STATES: Again seen is approximately 3 or 4 mm anterolisthesis of L4 on L5*. AQUATIC THERAPY FOR PAIN RELEIF, POSTURE CORRECTION/STRENGTHENING, INSTRUCTION IN APPROPRIATE BODY MECHANICS AND ACTIVITY MODIFICATIONS. JORDON LE ROM, STRETCHING AND STRENGTHENING. HEP INSTRUCTION. *Neutral Spine Only with pool and home ex's*. Especially no back Extension. CEASAR IS AGREEABLE TO THIS POC. SHE REPORTS SHE HAS A ROLLATOR THAT SHE WILL BRING FROM NOW ON. - Subjective Work/Leisure: RETIRED. SELF-EMPLOYEED - [employer]. NOT CURRENTLY WORKING. Present symptoms: JORDON KNEE PAIN. JORDON LBP AND JORDON LE PAIN, NUMBNESS AND TINGLING TO FEET. Present since: CHRONIC - DECADES. PROGRESSIVELY GETTING WORSE. Pain Scale: WORST 8-9/10, LEAST 2/10. Currently: 2/10. Commenced as a result of: PATIENT RELATES HER PAIN TO ARTHRITIS. 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 KNEES STARTED CLICKING ABOUT 2-3 YEARS AGO AT LEAST. Worse: BEING OVER-WEIGHT. INACTIVITY. STANDING. WALKING. GETTING IN AND OUT OF BED. STEPS. HOUSEWORK. Better: ELEVATING FEET. SITTING. SOME EXERCISES FROM PRIOR PT. Disturbed sleep: YES. Previous history/Previous treatment: PHYSICAL THERAPY FOR BACK AND LEGS (INCLUDING AQUATIC THERAPY). PAIN MGMT WITH DR. BRENNAN - NO INJECTIONS - RECOMMENDED BUT PATIENT REFUSED. DR. CARRION - JORDON KNEE INJECTIONS (ABOUT 1 YEAR AGO) - ONLY DID ONE OF THE 3 INJECTIONS DUE TO PATIENT CONCERNS ABOUT SIDE EFFECTS. NO BACK SURGERY. NO KNEE SURGERY. NO CHIRO X ABOUT 50 YEARS. Coughing/sneezing/straining: NEGATIVE. Gait: LIVES ALONE, DRIVES AND WALKS TO MAILBOX (ABOUT 60 FEET) BUT NO ASSISTIVE DEVICES. BACK AND LEGS GET A LOT OF PAIN WITH JUST A LITTLE STANDING AND WALKING. PATIENT REPORTS RISING FROM SITTING IS VERY DIFFICULT TOO AND LOOKING INTO GETTING A LIFT CHAIR. SHE REPORTS MOVING IN GENERAL IS VERY PAINFUL. PATIENT REPROTS SHE DOES HAVE A ROLLATOR BUT SHE DIDN'T BRING IT WITH HER TODAY SO SHE GOT IN THE WHEELCHAIR WHEN SHE GOT HERE. Bowel or Bladder Dysfunction: NO. Accidents: HASN'T FALLEN SINCE LAST WINTER WHEN SHE TRIPPED ON THE CORNER OF HER AREA RUG. ABLE TO GET HERSELF UP INDEP'LY. Unexplained weight loss: NO. Imaging: SEE [facility] RESULTS FOR 2017 LUMBAR X-RAY BUT NO KNEE X-RAYS FOUND: STUDY: X-RAY - LUMBAR SPINE. REASON FOR EXAM: Female, 66 years old. Low back pain. TECHNIQUE: 5 view(s) of the lumbar spine were obtained. COMPARISON: 03/31/2014. . FINDINGS: No acute abnormality. No compression fractures. Again seen is approximately 3 or 4 mm anterolisthesis of L4 on L5. Otherwise normal alignments and curvature. Mild multilevel degenerative changes are seen of the disks probable. worsening of facet joint degenerative disease at L3-L4, L4-L5, L5-S1. Calcified atherosclerosis seen of the aorta. IMPRESSION: No acute abnormality. Worsening of facet joint degenerative. disease in the lower lumbar spine. Electronically Signed: Richard Moody MD. at 16:17 EDT. , Service support [phone], Fax. PMH/Recent major surgery: IDDM. RLS. HTN. LE EDEMA. HIGH CHOLESTEROL. OTHER: PATIENT REPORTS SHE IS FAMILIAR WITH OUR POOL AND SHE FEELS SAFE INDEP'LY GOING INTO THE LOCKER ROOM BECAUSE SHE HAS A ROLLATOR THAT SHE WILL BRING WITH HER TO USE FROM NOW ON. - Objective THIS PATIENT WAS FOUND IN THE LOBBY IN A W/C AND REQUESTED TO BE BROUGHT BACK TO A TREATMENT ROOM IN THE WHEELCHAIR. SHE DEMO'D INDEP GAIT X APPROX 10 FEET INTO THE TREATMENT ROOM WITH LIMPING ON JORDON LE'S AND WITH EXCESSIVE TRUNK FLEXION AND MOANING. SHE IS VERY UE DEPENDENT TO TRANSFER FROM SIT TO STAND FROM THE W/C BUT INDEP. NO LOB OR ASSISTIVE DEVICE. REFUSED ASSISTIVE DEVICE IN CLINIC TODAY WHEN OFFERED. SHE REPORTS SHE CAN NOT GET ON THE TREATMENT TABLE FOR TESTING. REQUESTING AQUATIC THERAPY. STRENGTH: JORDON LE STRENGTH IS GROSSLY FOLLOWS: HIPS 4-/5, KNEES 3-/5, ANKLES 5/5. ROM: JORDON KNEE ROM TESTED IN SITTING PER PATIENT REQUEST AND SHE HAS JORDON EXTENSOR LAGS. -30 DEG EXT TO APPROX 110 DEG FLEXION MEASURE IN BOTH KNEES IN SITTING. PATIENT C/O JORDON LOW BACK, HIP/THIGH AND KNEE PAIN WITH MMT'ING AND ROM TESTING ALTHOUGH THIS PT PROCEEDED CAREFULLY WITH ALL TESTING. PATIENT REQUESTED TO BE TAKEN BACK TO CARE THE W/C AND THIS PT DID SO. SHE INDEP'LY GOT OUT OF THE W/C, WALKED ABOUT 8 FEET TO THE CAR DOOR AND GOT IN. - Balance/Special Test Scores Lower Extremity Functional Score: 17 - Goals Goal 1:: DECREASE C/O KNEE PAIN Goal Time Frame: 4-6 Weeks Goal 2:: IMPROVE STANDING, WALKING AND ADL FUNCTION Goal Time Frame: 4-6 Weeks Goal 3:: PATIENT WILL BE INDEP WITH A WATER EX PROGRAM FOR CONTINUED IMPROVEMENT ONCE FORMAL PHYSICAL THERAPY CONCLUDES. Goal Time Frame: 4-6 Weeks - Anticipated Interventions Patient/Client Instruction: Educate patient on: Condition, Plan of Care, Risk Factors For the Purpose of:: To improve self management Therapeutic Exercise to Include: Strength training, Balance training, Body mechanics, Postural training, Flexibilty training, Gait and locomotor training, Neuromotor development, In an aquatic setting For the Purpose of:: To decrease pain, To increase ROM, To improve muscle performance and motor function, To increase tolerance to activity/condition/position, To improve performance and independence with ADL's, To improve ability of physical actions for home/community/work/leisure, To improve gait and locomotor functions Thank you for the opportunity to evaluate your patient. For Medicare and Medicare HMO plans, please review the plan of care and approve it. It will need to be FAXED BACK to us at [phone] for Medicare purposes. For Medicare only, by signing this I certify the plan of care. Please let me know if there are questions or concerns regarding this plan of care. Physician Signature: Date:
--- NOTE | 2022-02-13 11:03 | HP.PTREVAL ---
Dr. Ankush Rios MD, It has been my pleasure to treat MACY HERRERA over the last 6 visits for KNEE PAIN. Please see the progress note below for an update on the physical therapy plan of care! Subjective: PATIENT REPORTS SHE IS DOING WORSE NOW THAN WHEN SHE STARTED PT. STATES SHE HASN'T BEEN ABLE TO COME TO PT SINCE 01/12/22 FOR MULTIPLE REASONS INCLUDING BEING EXPOSED TO COVID AND HAVING KIDNEY DOCTOR CASSANDRA'TS. STATES SHE WANTS TO GO BACK TO DOING WATER THERAPY. PATIENT REPORTS SHE THINKS SHE OVER-STRETCHED IN THE POOL LAST VISIT BUT IT WENT AWAY IN A FEW MINUTES AND WAS ABLE TO CONTINUE FINE. STATES WANTS TO START COMING ON HER OWN IN THE POOL TOO WITH HER [employer]. THIS PT RECOMMENDED SHE HAVE MORE AQUATIC THERAPY SESSIONS BEFORE TRYING ON HER OWN AND PATIENT IS AGREEABLE. Objective/Function: THIS PATIENT WAS FOUND IN THE LOBBY IN A W/C AND REQUESTED TO BE BROUGHT BACK TO A TREATMENT ROOM IN THE WHEELCHAIR. SHE DEMO'D INDEP GAIT X APPROX 10 FEET INTO THE RESTROOM AND 20 FEET OUT OF THE RESTROOM WITH LIMPING ON JORDON LE'S AND WITH EXCESSIVE TRUNK FLEXION AND MOANING. SHE IS VERY UE DEPENDENT TO TRANSFER FROM SIT TO STAND FROM THE W/C BUT INDEP. NO LOB OR ASSISTIVE DEVICE. REFUSED ASSISTIVE DEVICE IN CLINIC TODAY WHEN OFFERED. SHE REPORTS SHE CAN NOT GET ON THE TREATMENT TABLE FOR TESTING. REQUESTING AQUATIC THERAPY. STRENGTH: JORDON LE STRENGTH IS GROSSLY FOLLOWS: HIPS 4-/5, KNEES 3-/5, ANKLES 5/5. ROM: JORDON KNEE ROM TESTED IN SITTING PER PATIENT REQUEST AND SHE HAS JORDON EXTENSOR LAGS. -30 DEG EXT TO APPROX 110 DEG FLEXION MEASURE IN BOTH KNEES IN SITTING. PATIENT C/O JORDON LOW BACK, HIP/THIGH AND KNEE PAIN WITH MMT'ING AND ROM TESTING ALTHOUGH THIS PT PROCEEDED CAREFULLY WITH ALL TESTING. OK TO RESUME AQUATIC THERAPY. THIS PT CONTINUES TO RECOMMEND ASSISTIVE DEVICE AT ALL TIMES FOR SAFETY AND PATIENT REPORTS SHE HAS A WALKER SHE CAN USE. Plan Plan: OK TO RESUME AQUATIC THERAPY X 5 AT 2X'S A WK THEN RE-CHECK. PATIENT AGREEABLE. *2017 LUMBAR X-RAYS STATES: Again seen is approximately 3 or 4 mm anterolisthesis of L4 on L5*. AQUATIC THERAPY FOR PAIN RELEIF, POSTURE CORRECTION/STRENGTHENING, INSTRUCTION IN APPROPRIATE BODY MECHANICS AND ACTIVITY MODIFICATIONS. JORDON LE ROM, STRETCHING AND STRENGTHENING. HEP INSTRUCTION. *Neutral Spine Only with pool and home ex's*. Especially no back Extension. CEASAR IS AGREEABLE TO THIS POC. SHE REPORTS SHE HAS A ROLLATOR THAT SHE WILL BRING FROM NOW ON. Balance/Gait/Functional tests - Balance/Special Test Scores Lower Extremity Functional Score: 27 Goals Goal 1:: DECREASE C/O KNEE PAIN Goal Time Frame: 4-6 Weeks Goal Progress: Not Progressing Goal 2:: IMPROVE STANDING, WALKING AND ADL FUNCTION Goal Time Frame: 4-6 Weeks Goal Progress: Not Progressing Goal 3:: PATIENT WILL BE INDEP WITH A WATER EX PROGRAM FOR CONTINUED IMPROVEMENT ONCE FORMAL PHYSICAL THERAPY CONCLUDES. Goal Time Frame: 4-6 Weeks Goal Progress: Not Progressing Anticipated Interventions Patient/Client Instruction: Educate patient on: Condition, Plan of Care, Risk Factors For the Purpose of:: To improve self management Therapeutic Exercise to Include: Strength training, Balance training, Body mechanics, Postural training, Flexibilty training, Gait and locomotor training, Neuromotor development, In an aquatic setting For the Purpose of:: To decrease pain, To increase ROM, To improve muscle performance and motor function, To increase tolerance to activity/condition/position, To improve performance and independence with ADL's, To improve ability of physical actions for home/community/work/leisure, To improve gait and locomotor functions Please do not hesitate to contact me at [phone] by phone or if you have questions or concerns regarding this new plan of care! Sincerely, Kristine Riley, PT, Cert MDT
--- NOTE | 2022-06-23 09:19 | HP.PT.NRP ---
MACY HERRERA was seen in my office for initial evaluation on 12/29/21. The following Plan of Care was established for this patient: Initial Frequency: 2-3x /Week Initial Duration: 4-6 Weeks Patient/Client Instruction: Educate patient on: Condition, Plan of Care, Risk Factors For the Purpose of:: To improve self management Therapeutic Exercise to Include: Strength training, Balance training, Body mechanics, Postural training, Flexibilty training, Gait and locomotor training, Neuromotor development, In an aquatic setting For the Purpose of:: To decrease pain, To increase ROM, To improve muscle performance and motor function, To increase tolerance to activity/condition/position, To improve performance and independence with ADL's, To improve ability of physical actions for home/community/work/leisure, To improve gait and locomotor functions This patient was last seen in our office 02/24/22. Pertinent comments regarding their Physical therapy will appear below: This patient has not returned to Physical Therapy and is appropriate to return to MD for further follow-up as needed. At this point I will be discontinuing this patient from physical therapy. I would be happy to see this patient again in the future if found appropriate by the physician. Thank you! Kristine Riley, PT, Cert MDT Balance/Gait/Functional tests - Balance/Special Test Scores Lower Extremity Functional Score: 27
== END 2022-02-24 19:00 | disposition home or self-care (01) ==
LOC: PT 12:00
PROVIDERS: PCP Family Medicine Geriatric Medicine; Referring Provider Family Medicine Geriatric Medicine; Visit Provider Family Medicine Geriatric Medicine
DX: M25.569 Pain in unspecified knee (principal)
CPT/HCPCS: 97113; 97162; 97164

== ENCOUNTER → 2022-07-13 | Outpatient (CLI) | payer MEDICARE, SELFPAY ==
[2022-07-13 13:17] LABS: Absolute Lymphocyte Count 1.18 X10^3/uL (0.83-4.51); Basophil# 0.03 X10^3/uL; Basophil% 0.5 % (0-1); Eosinophil# 0.07 X10^3/uL; Eosinophils% 1.2 % (0-5); Hematocrit 44.2 % (37-47); Lymphocyte # 1.18 X10^3/ul (0.83-4.51); Lymphocyte % 20.3 % (19-41); Mean Corp Hgb Conc 31.7 g/dL (32-36); Mean Corpuscular Hgb 32.1 pg (27.0-32.0); Mean Corpuscular Volume 101.4 fL (81-99); Mean Platelet Vol. 10.7 fl (6.2-12.0); Monocyte# 0.48 X10^3/uL; Monocyte% 8.2 % (0-10); NRBC Flagged by Analyzer 0 % (0-5); Neutrophil # 4.01 X10^3/uL (2.7-7.7); Neutrophil % 68.9 % (47-70); Platelet Count 217 K/mm3 (150-450); RBC Distribution Width CV 13.5 % (11.6-14.6); RBC Distribution Width SD 51.8 fl (35.1-43.9); Red Blood Count 4.36 M/mm3 (4.2-5.4); White Blood Count 5.8 K/mm3 (4.4-11.0)
[2022-07-13 13:34] LABS: Vitamin D,25 Hydroxy 30.7 ng/mL
[2022-07-13 13:45] LABS: ALB/GLOB Ratio 0.8 RATIO (0.9-2.4); AST(SGOT) 18 U/L (15-37); Alanine Aminotransfer ALT/SGPT 28 U/L (13-56); Albumin, Serum 3.1 g/dL (3.2-5.0); Alkaline Phosphatase 98 U/L (45-117); Anion Gap 6 (5-15); BUN 22 mg/dL (7-18); BUN/Creat Ratio 26.3 RATIO (10-20); Chloride 107 mmol/L (98-107); Cholesterol 165 mg/dL (200); Creatinine, Serum 0.84 mg/dL (0.55-1.02); EST Glomerular Filtration Rate 71 mL/min (>60); Est Glom Filt Rate - Afr Amer 86 mL/min (>60); Globulin 4.1 g/dL (2.2-4.2); Glucose 116 mg/dL (74-106); High Density Lipoprotein 73 mg/dL; Potassium 4.1 mmol/L (3.5-5.1); Protein, Total 7.2 g/dL (6.4-8.2); Sodium Level 139 mmol/L (136-145); Thyroid Stim Hormone (TSH) 2.23 uIU/mL (0.358-3.74); Triglycerides 89 mg/dL; Very Low Density Lipoprotein 18 mg/dL (5-40)
== END | disposition home or self-care (01) ==
LOC: POLAB3 08:57
PROVIDERS: PCP Family Medicine Geriatric Medicine; Visit Provider Family Medicine Geriatric Medicine
DX: I10 Essential (primary) hypertension (principal); E11.9 Type 2 diabetes mellitus without complications; E55.9 Vitamin D deficiency, unspecified; E78.5 Hyperlipidemia, unspecified
CPT/HCPCS: 36415; 80053; 80061; 82306; 84443; 85025

== ENCOUNTER → 2022-07-18 | Outpatient (CLI) | payer MEDICARE, SELFPAY ==
--- NOTE | 2022-07-18 08:22 | RAD_ITS ---
STUDY: X-RAY - LUMBAR SPINE REASON FOR EXAM: Female, 72 years old. STENOSIS TECHNIQUE: 5 view(s) of the lumbar spine were obtained. COMPARISON: Lumbar spine radiograph September 12, 2016 FINDINGS: Normal lumbar lordosis. There is no substantial scoliosis. There is a normal alignment of the vertebrae except for a few millimeters anterolisthesis of L4-5 and retrolisthesis L3-4. No pars defects noted on oblique imaging.. There is multilevel endplate spondylosis of the lumbar vertebrae. There is multi-level degenerative disc disease with multi-level disc space narrowing. Cholelithiasis. The soft tissue structures are unremarkable. RAD/Lumbar Spine 2 or 3 Views IMPRESSION: Grade 1 spondylolisthesis L4-5 unchanged. Spondylosis. Cholelithiasis. Electronically Signed: Roosevelt Shankar MD at 20:07 EST ,
== END | disposition home or self-care (01) ==
LOC: RAD 08:21
PROVIDERS: PCP Family Medicine Geriatric Medicine; Referring Provider Family Medicine Geriatric Medicine; Visit Provider Family Medicine Geriatric Medicine
DX: M48.061 Spinal stenosis, lumbar region without neurogenic claudication (principal)
CPT/HCPCS: 72100

== ENCOUNTER → 2022-12-06 | Outpatient (CLI) | payer MEDICARE, SELFPAY ==
[2022-12-06 11:16] LABS: Absolute Lymphocyte Count 1.48 X10^3/uL (0.83-4.51); Basophil# 0.03 X10^3/uL; Basophil% 0.5 % (0-1); Eosinophil# 0.07 X10^3/uL; Eosinophils% 1.1 % (0-5); Hematocrit 43.4 % (37-47); Hemoglobin 13.6 g/dL (12.0-15.0); Lymphocyte # 1.48 X10^3/ul (0.83-4.51); Lymphocyte % 24.1 % (19-41); Mean Corp Hgb Conc 31.3 g/dL (32-36); Mean Corpuscular Hgb 31.1 pg (27.0-32.0); Mean Corpuscular Volume 99.1 fL (81-99); Mean Platelet Vol. 10.2 fl (6.2-12.0); Monocyte# 0.49 X10^3/uL; NRBC Flagged by Analyzer 0 % (0-5); Neutrophil # 4.02 X10^3/uL (2.7-7.7); Neutrophil % 65.5 % (47-70); Platelet Count 250 K/mm3 (150-450); RBC Distribution Width CV 13.2 % (11.6-14.6); RBC Distribution Width SD 48.2 fl (35.1-43.9); Red Blood Count 4.38 M/mm3 (4.2-5.4); White Blood Count 6.1 K/mm3 (4.4-11.0)
[2022-12-06 12:03] LABS: ALB/GLOB Ratio 0.7 RATIO (0.9-2.4); AST(SGOT) 13 U/L (15-37); Alanine Aminotransfer ALT/SGPT 16 U/L (13-56); Albumin, Serum 2.9 g/dL (3.2-5.0); Alkaline Phosphatase 94 U/L (45-117); Anion Gap 5 (5-15); BUN 29 mg/dL (7-18); BUN/Creat Ratio 27.1 RATIO (10-20); Calcium,Total 9.5 mg/dL (8.5-10.1); Chloride 106 mmol/L (98-107); Cholesterol 181 mg/dL (200); Creatinine, Serum 1.07 mg/dL (0.55-1.02); EST Glomerular Filtration Rate 54 mL/min (>60); Est Glom Filt Rate - Afr Amer 65 mL/min (>60); Globulin 4.2 g/dL (2.2-4.2); Glucose 117 mg/dL (74-106); High Density Lipoprotein 59 mg/dL; Potassium 4.2 mmol/L (3.5-5.1); Protein, Total 7.1 g/dL (6.4-8.2); Sodium Level 137 mmol/L (136-145); Thyroid Stim Hormone (TSH) 1.58 uIU/mL (0.358-3.74); Triglycerides 111 mg/dL; Very Low Density Lipoprotein 22 mg/dL (5-40)
[2022-12-06 13:40] LABS: Vitamin D,25 Hydroxy > 150.0 ng/mL (29.95-100.01)
== END | disposition home or self-care (01) ==
LOC: LAB 10:29
PROVIDERS: PCP Family Medicine Geriatric Medicine; Referring Provider Family Medicine Geriatric Medicine; Visit Provider Family Medicine Geriatric Medicine
DX: I10 Essential (primary) hypertension (principal); E11.65 Type 2 diabetes mellitus with hyperglycemia; E55.9 Vitamin D deficiency, unspecified
CPT/HCPCS: 36415; 80053; 80061; 82306; 84443; 85025

== ENCOUNTER → 2023-10-04 | Outpatient (CLI) | payer MEDICARE, SELFPAY ==
[2023-10-04 11:41] LABS: Absolute Lymphocyte Count 1.44 X10^3/uL (0.83-4.51); Absolute Neutrophil Count 3.9 X10^3/uL (2.0-7.7); Basophil# 0.03 X10^3/uL; Basophil% 0.5 % (0-1); Eosinophil# 0.07 X10^3/uL; Eosinophils% 1.2 % (0-5); Hematocrit 41.4 % (37-47); Hemoglobin 12.8 g/dL (12.0-15.0); Lymphocyte # 1.44 X10^3/ul (0.83-4.51); Lymphocyte % 24.5 % (19-41); Mean Corp Hgb Conc 30.9 g/dL (32-36); Mean Corpuscular Hgb 30.8 pg (27.0-32.0); Mean Corpuscular Volume 99.8 fL (81-99); Mean Platelet Vol. 10.1 fl (6.2-12.0); Monocyte# 0.42 X10^3/uL; Monocyte% 7.1 % (0-10); NRBC Flagged by Analyzer 0 % (0-5); Neutrophil # 3.89 X10^3/uL (2.7-7.7); Neutrophil % 66.2 % (47-70); Platelet Count 244 K/mm3 (150-450); RBC Distribution Width CV 13.3 % (11.6-14.6); RBC Distribution Width SD 48.8 fl (35.1-43.9); Red Blood Count 4.15 M/mm3 (4.2-5.4); White Blood Count 5.9 K/mm3 (4.4-11.0)
[2023-10-04 12:37] LABS: Hemoglobin A1c 6.6 % (3.8-5.6)
[2023-10-04 13:02] LABS: Vitamin D,25 Hydroxy 47.8 ng/mL
[2023-10-04 13:09] LABS: ALB/GLOB Ratio 0.9 RATIO (0.9-2.4); AST(SGOT) 13 U/L (15-37); Alanine Aminotransfer ALT/SGPT 18 U/L (13-56); Albumin, Serum 3.2 g/dL (3.2-5.0); Alkaline Phosphatase 106 U/L (45-117); Anion Gap 4 (5-15); BUN 20 mg/dL (7-18); BUN/Creat Ratio 25.3 RATIO (10-20); Chloride 106 mmol/L (98-107); Cholesterol 128 mg/dL (200); Creatinine, Serum 0.79 mg/dL (0.55-1.02); EST Glomerular Filtration Rate 76 mL/min (>60); Est Glom Filt Rate - Afr Amer 91 mL/min (>60); Globulin 3.6 g/dL (2.2-4.2); Glucose 127 mg/dL (74-106); High Density Lipoprotein 66 mg/dL; Potassium 4.2 mmol/L (3.5-5.1); Protein, Total 6.8 g/dL (6.4-8.2); Sodium Level 138 mmol/L (136-145); Thyroid Stim Hormone (TSH) 2.09 uIU/mL (0.358-3.74); Triglycerides 108 mg/dL; Very Low Density Lipoprotein 22 mg/dL (5-40)
== END | disposition home or self-care (01) ==
PROVIDERS: PCP Family Medicine Geriatric Medicine; Visit Provider Family Medicine Geriatric Medicine
DX: E11.65 Type 2 diabetes mellitus with hyperglycemia (principal); E55.9 Vitamin D deficiency, unspecified; E78.5 Hyperlipidemia, unspecified; I10 Essential (primary) hypertension
CPT/HCPCS: 36415; 80053; 80061; 82306; 83036; 84443; 85025

== ENCOUNTER → 2024-01-09 | Outpatient (CLI) | payer MEDICARE, SELFPAY ==
[2024-01-09 13:24] LABS: Absolute Lymphocyte Count 1.46 X10^3/uL (0.83-4.51); Absolute Neutrophil Count 3.5 X10^3/uL (2.0-7.7); Basophil# 0.02 X10^3/uL; Basophil% 0.4 % (0-1); Eosinophil# 0.07 X10^3/uL; Eosinophils% 1.3 % (0-5); Hematocrit 41.5 % (37-47); Hemoglobin 12.9 g/dL (12.0-15.0); Lymphocyte # 1.46 X10^3/ul (0.83-4.51); Lymphocyte % 26.3 % (19-41); Mean Corp Hgb Conc 31.1 g/dL (32-36); Mean Corpuscular Hgb 31.2 pg (27.0-32.0); Mean Corpuscular Volume 100.5 fL (81-99); Monocyte# 0.52 X10^3/uL; Monocyte% 9.4 % (0-10); NRBC Flagged by Analyzer 0 % (0-5); Neutrophil # 3.46 X10^3/uL (2.7-7.7); Neutrophil % 62.1 % (47-70); Platelet Count 204 K/mm3 (150-450); RBC Distribution Width CV 13.6 % (11.6-14.6); RBC Distribution Width SD 50.5 fl (35.1-43.9); Red Blood Count 4.13 M/mm3 (4.2-5.4); White Blood Count 5.6 K/mm3 (4.4-11.0)
[2024-01-09 13:27] LABS: Color, Urine Yellow (Yellow); Glucose, Dipstick Normal (Normal); Ketone-Dipstick Negative (Negative); Leukocyte Esterase-Dipstick Negative /ul (Negative); Nitrite-Dipstick Negative (Negative); Occult Blood-Urine Negative /ul (Negative); Protein-Dipstick Negative (Negative); Specific Gravity, Urine 1.005 (1.002-1.030); Urine Bilirubin Dipstick Negative (Negative); Urine Clarity Clear (Clear); Urine Urobilinogen Normal (Normal)
[2024-01-09 13:58] LABS: Vitamin D,25 Hydroxy 46.7 ng/mL
[2024-01-09 14:03] LABS: Hemoglobin A1c 6.3 % (3.8-5.6); Microalbumin,Random Urine < 5.0 mg/L (NO RANGE EST.)
[2024-01-09 14:10] LABS: ALB/GLOB Ratio 0.8 RATIO (0.9-2.4); AST(SGOT) 18 U/L (15-37); Alanine Aminotransfer ALT/SGPT 18 U/L (13-56); Albumin, Serum 3.1 g/dL (3.2-5.0); Alkaline Phosphatase 98 U/L (45-117); Anion Gap 4 (5-15); BUN 18 mg/dL (7-18); BUN/Creat Ratio 25.5 RATIO (10-20); Chloride 107 mmol/L (98-107); Cholesterol 116 mg/dL (200); EST Glomerular Filtration Rate 86 mL/min (>60); Est Glom Filt Rate - Afr Amer 104 mL/min (>60); Globulin 3.9 g/dL (2.2-4.2); Glucose 104 mg/dL (74-106); High Density Lipoprotein 66 mg/dL; Potassium 4.6 mmol/L (3.5-5.1); Sodium Level 139 mmol/L (136-145); Thyroid Stim Hormone (TSH) 1.55 uIU/mL (0.358-3.74); Triglycerides 82 mg/dL; Very Low Density Lipoprotein 16 mg/dL (5-40)
== END | disposition home or self-care (01) ==
LOC: LAB 12:37
PROVIDERS: PCP Family Medicine Geriatric Medicine; Referring Provider Family Medicine Geriatric Medicine; Visit Provider Family Medicine Geriatric Medicine
DX: E11.65 Type 2 diabetes mellitus with hyperglycemia (principal); I10 Essential (primary) hypertension; N39.0 Urinary tract infection, site not specified; E55.9 Vitamin D deficiency, unspecified; E78.5 Hyperlipidemia, unspecified
CPT/HCPCS: 36415; 80053; 80061; 81002; 82043; 82306; 83036; 84443; 85025

== ENCOUNTER → 2024-01-16 | Outpatient (CLI) | payer MEDICARE, SELFPAY ==
--- NOTE | 2024-01-16 10:41 | BI_ITS ---
MAMMOGRAPHY - BILATERAL SCREENING REASON FOR EXAM: Female, 73 years old. Routine annual screening examination. PERTINENT HISTORY: Non-contributory. TECHNIQUE: Digital bilateral breast nena (3D mammographic acquisition) in the CC and MLO projections. 2-D mediolateral oblique (MLO) and craniocaudad (CC) views of both breasts were obtained. CAD: Full Field Digital Mammography with Computer Added Detection was performed. COMPARISON: Comparison is made with prior study dated November 01, 2021. FINDINGS: Breast Composition: The breasts are almost entirely fatty. There are no dominant masses or suspicious calcifications. Stable bilateral fat containing axillary lymph nodes. No other significant abnormalities are identified. There has been no significant change since the prior study. BI/SCRN MAMM (CAD)W/NENA BILAT IMPRESSION: Stable bilateral screening mammogram. Yearly follow-up mammogram recommended. (A) ASSESSMENT CATEGORY: BIRADS Category 2: Benign. A letter regarding these results will be sent to the patient by the facility within 30 days. Approximately 10% of breast cancers are not detected by mammography. A normal mammogram should not delay biopsy of a clinically suspicious abnormality. [id number] Electronically Signed: Shon Middleton MD at 12:10 EDT ,
== END | disposition home or self-care (01) ==
LOC: OPBI 10:38
PROVIDERS: PCP Family Medicine Geriatric Medicine; Referring Provider Family Medicine Geriatric Medicine; Visit Provider Family Medicine Geriatric Medicine
DX: Z12.31 Encounter for screening mammogram for malignant neoplasm of breast (principal)
CPT/HCPCS: 77063; 77067

== ENCOUNTER → 2024-03-06 | Outpatient (CLI) | payer MEDICARE, SELFPAY | END | disposition home or self-care (01) | LOC: POLAB3 10:25 | PROVIDERS: PCP Family Medicine Geriatric Medicine; Visit Provider Family Medicine Geriatric Medicine | DX: E11.621 Type 2 diabetes mellitus with foot ulcer (principal); L03.031 Cellulitis of right toe; B95.62 Methicillin resistant Staphylococcus aureus infection as the cause of diseases classified elsewhere | CPT/HCPCS: 87070; 87075; 87205 ==

== ENCOUNTER → 2024-04-09 | Outpatient (CLI) | payer MEDICARE, SELFPAY ==
[2024-04-09 12:18] LABS: Absolute Lymphocyte Count 1.49 X10^3/uL (0.83-4.51); Absolute Neutrophil Count 3.9 X10^3/uL (2.0-7.7); Basophil# 0.03 X10^3/uL; Basophil% 0.5 % (0-1); Eosinophil# 0.08 X10^3/uL; Eosinophils% 1.3 % (0-5); Hematocrit 43.5 % (37-47); Hemoglobin 13.7 g/dL (12.0-15.0); Lymphocyte # 1.49 X10^3/ul (0.83-4.51); Lymphocyte % 24.5 % (19-41); Mean Corp Hgb Conc 31.5 g/dL (32-36); Mean Corpuscular Volume 101.6 fL (81-99); Mean Platelet Vol. 10.6 fl (6.2-12.0); Monocyte# 0.56 X10^3/uL; Monocyte% 9.2 % (0-10); NRBC Flagged by Analyzer 0 % (0-5); Neutrophil # 3.85 X10^3/uL (2.7-7.7); Neutrophil % 63.5 % (47-70); Platelet Count 235 K/mm3 (150-450); RBC Distribution Width CV 13.6 % (11.6-14.6); RBC Distribution Width SD 51.8 fl (35.1-43.9); Red Blood Count 4.28 M/mm3 (4.2-5.4); White Blood Count 6.1 K/mm3 (4.4-11.0)
[2024-04-09 13:04] LABS: ALB/GLOB Ratio 0.9 RATIO (0.9-2.4); AST(SGOT) 15 U/L (15-37); Alanine Aminotransfer ALT/SGPT 20 U/L (13-56); Albumin, Serum 3.3 g/dL (3.2-5.0); Alkaline Phosphatase 125 U/L (45-117); Anion Gap 7 (5-15); BUN 17 mg/dL (7-18); BUN/Creat Ratio 20.7 RATIO (10-20); Calcium,Total 9.4 mg/dL (8.5-10.1); Chloride 104 mmol/L (98-107); Creatinine, Serum 0.82 mg/dL (0.55-1.02); EST Glomerular Filtration Rate 72 mL/min (>60); Est Glom Filt Rate - Afr Amer 88 mL/min (>60); Globulin 3.7 g/dL (2.2-4.2); Glucose 178 mg/dL (74-106); Potassium 4.8 mmol/L (3.5-5.1); Sodium Level 138 mmol/L (136-145)
== END | disposition home or self-care (01) ==
LOC: POLAB3 11:30
PROVIDERS: PCP Family Medicine Geriatric Medicine; Visit Provider Family Medicine Geriatric Medicine
DX: E11.65 Type 2 diabetes mellitus with hyperglycemia (principal); I10 Essential (primary) hypertension; E55.9 Vitamin D deficiency, unspecified
CPT/HCPCS: 36415; 80053; 82306; 84443; 85025

== ENCOUNTER → 2024-08-06 | Outpatient (CLI) | payer MEDICARE, SELFPAY ==
[2024-08-06 13:03] LABS: Absolute Lymphocyte Count 1.42 X10^3/uL (0.83-4.51); Absolute Neutrophil Count 3.2 X10^3/uL (2.0-7.7); Basophil# 0.03 X10^3/uL; Basophil% 0.6 % (0-1); Eosinophil# 0.08 X10^3/uL; Eosinophils% 1.5 % (0-5); Hematocrit 43.7 % (37-47); Hemoglobin 13.8 g/dL (12.0-15.0); Lymphocyte # 1.42 X10^3/ul (0.83-4.51); Lymphocyte % 27.3 % (19-41); Mean Corp Hgb Conc 31.6 g/dL (32-36); Mean Corpuscular Hgb 31.9 pg (27.0-32.0); Mean Corpuscular Volume 100.9 fL (81-99); Mean Platelet Vol. 10.8 fl (6.2-12.0); Monocyte# 0.49 X10^3/uL; Monocyte% 9.4 % (0-10); NRBC Flagged by Analyzer 0 % (0-5); Neutrophil # 3.15 X10^3/uL (2.7-7.7); Neutrophil % 60.4 % (47-70); Platelet Count 231 K/mm3 (150-450); RBC Distribution Width CV 12.9 % (11.6-14.6); RBC Distribution Width SD 48.4 fl (35.1-43.9); Red Blood Count 4.33 M/mm3 (4.2-5.4); White Blood Count 5.2 K/mm3 (4.4-11.0)
[2024-08-06 13:35] LABS: ALB/GLOB Ratio 0.8 RATIO (0.9-2.4); AST(SGOT) 16 U/L (15-37); Alanine Aminotransfer ALT/SGPT 19 U/L (13-56); Albumin, Serum 3.2 g/dL (3.2-5.0); Alkaline Phosphatase 98 U/L (45-117); Anion Gap 4 (5-15); BUN 21 mg/dL (7-18); Calcium,Total 9.3 mg/dL (8.5-10.1); Chloride 105 mmol/L (98-107); Cholesterol 185 mg/dL (200); EST Glomerular Filtration Rate 87 mL/min (>60); Est Glom Filt Rate - Afr Amer 105 mL/min (>60); Globulin 3.9 g/dL (2.2-4.2); Glucose 81 mg/dL (74-106); High Density Lipoprotein 70 mg/dL; Potassium 4.3 mmol/L (3.5-5.1); Protein, Total 7.1 g/dL (6.4-8.2); Sodium Level 137 mmol/L (136-145); Triglycerides 98 mg/dL; Very Low Density Lipoprotein 20 mg/dL (5-40)
[2024-08-06 14:30] LABS: Hemoglobin A1c 6.2 % (3.8-5.6)
== END | disposition home or self-care (01) ==
LOC: LAB 11:39
PROVIDERS: PCP Family Medicine Geriatric Medicine; Referring Provider Family Medicine Geriatric Medicine; Visit Provider Family Medicine Geriatric Medicine
DX: E11.65 Type 2 diabetes mellitus with hyperglycemia (principal); I10 Essential (primary) hypertension; E55.9 Vitamin D deficiency, unspecified; E78.5 Hyperlipidemia, unspecified
CPT/HCPCS: 36415; 80053; 80061; 83036; 84443; 85025

== ENCOUNTER → 2025-01-09 | Outpatient (CLI) | payer OTHER, SELFPAY ==
[2025-01-09 11:20] LABS: Hematocrit 39.7 % (37-47); Hemoglobin 13.1 g/dL (12.0-15.0); Immature Granulocytes Count 0.050 X10^3/uL (0.0-0.0); Mean Corp Hgb Conc 33.0 g/dL (32-36); Mean Corpuscular Volume 98.8 fL (81-99); Mean Platelet Vol. 9.8 fl (6.2-12.0); NRBC Flagged by Analyzer 0 % (0-5); Platelet Count 242 K/mm3 (150-450); RBC Distribution Width CV 14.4 % (11.6-14.6); RBC Distribution Width SD 52.0 fl (35.1-43.9); Red Blood Count 4.02 M/mm3 (4.2-5.4); White Blood Count 5.9 K/mm3 (4.4-11.0)
[2025-01-09 12:31] LABS: Creatinine, Urine (random) 97.90 mg/dL (28.00-217.00); Microalbumin,Random Urine 26.5 mg/L (<20 mg/L)
[2025-01-09 13:14] LABS: AST(SGOT) 20 U/L (<=31); Alanine Aminotransfer ALT/SGPT 16 U/L (<=34); Albumin, Serum 3.9 g/dL (3.4-4.8); Alkaline Phosphatase 103 U/L (35-104); Anion Gap 13 (5-15); BUN 17 mg/dL (4-19); BUN/Creat Ratio 22.5 RATIO (10-20); Calcium,Total 9.3 mg/dL (7.6-11.0); Carbon Dioxide 21.2 mmol/L (21.0-32.0); Chloride 105 mmol/L (98-108); Cholesterol 202 mg/dL (<=200); Globulin 3.1 g/dL (2.2-4.2); Glucose 146 mg/dL (70-99); Low Density Lipoprotein Calc. 106 mg/dL; Potassium 4.3 mmol/L (3.3-5.1); Triglycerides 115 mg/dL; Very Low Density Lipoprotein 23 mg/dL (5-40); Vitamin D,25 Hydroxy 39.2 ng/mL (30-100); cholesterol:hdl ratio screen 2.76
[2025-01-09 19:08] LABS: Xtra Tube Kwok EXTRA TUBE
== END | disposition home or self-care (01) ==
LOC: POLAB3 11:05
PROVIDERS: PCP Family Medicine Geriatric Medicine; Visit Provider Family Medicine Geriatric Medicine
DX: E11.65 Type 2 diabetes mellitus with hyperglycemia (principal); I10 Essential (primary) hypertension; E78.5 Hyperlipidemia, unspecified; E55.9 Vitamin D deficiency, unspecified
CPT/HCPCS: 36415; 80053; 80061; 82043; 82306; 82570; 83036; 84443; 85025

== ENCOUNTER 2025-04-11 13:40 | Emergency (ER) | payer OTHER, SELFPAY ==
[2025-04-11 13:41] VITALS: BP 131/76; PULSE 97; RESP 18; TEMP 35.9; O2SAT 97
[2025-04-11 14:05] VITALS: BMI 39.9
--- NOTE | 2025-04-11 14:25 | RAD_ITS ---
PROCEDURE: LEFT FINGER(S) MIN 2 VIEWS 04/11/2025 REASON FOR EXAM: PAIN, INFECTION TECHNIQUE: Procedure Code: RADFIN Modality: DX Procedure: FINGER(S) MIN 2 VIEWS Laterality: Left COMPARISON: None. FINDINGS: No acute fracture or dislocation. 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 There is cortical erosion involving the 2nd distal phalanx compatible with osteomyelitis. Mild diffuse interphalangeal arthrosis. Soft tissue swelling of the 2nd digit with soft tissue thinning/ulceration at the distal tip, with nearly exposed bone. RAD/Finger(s) Min 2 Views IMPRESSION: Soft tissue swelling about the 2nd digit with thinning/ulceration at the tip, w ith associated osteomyelitis involving the 2nd distal phalanx. Reading Location: [id number]
[2025-04-11 14:29] LABS: Hematocrit 42.4 % (37-47); Hemoglobin 14.2 g/dL (12.0-15.0); Immature Granulocytes Count 0.040 X10^3/uL (0.0-0.0); Mean Corp Hgb Conc 33.5 g/dL (32-36); Mean Corpuscular Volume 97.7 fL (81-99); Mean Platelet Vol. 10.2 fl (6.2-12.0); NRBC Flagged by Analyzer 0 % (0-5); Platelet Count 240 K/mm3 (150-450); RBC Distribution Width CV 12.4 % (11.6-14.6); RBC Distribution Width SD 44.8 fl (35.1-43.9); Red Blood Count 4.34 M/mm3 (4.2-5.4); White Blood Count 6.7 K/mm3 (4.4-11.0)
--- OUTSIDE RECORDS SUMMARY | 2025-04-11 14:31 | XMS RPT_ITS | CCD ---
Author Organization [facility] Care Team Providers Care Career Discovery Teacher Name Role Phone Unavailable Primary Care Provider Unavailabl e Gabriel, Ankush-Chi Primary Care Provider Gabriel INGRAM, Dr. Ankush Dyson Primary Care Provider Dr. Ankush Rios MD, Chi Attending Provider Gabriel, Ankush Chi Referring Unavailable Gabriel, Ankush Chi Primary Care Unavailable Gabriel, Ankush Chi Attending Unavailable Gabriel, Ankush Chi Primary Care Unavailable Gabriel, Ankush Chi Attending Unavailable Gabriel, Ankush Chi Attending Unavailable Gabriel, Ankush Chi Referring Unavailable Gabriel, Ankush Chi Primary Care Unavailable Gabriel, Ankush Chi Attending Unavailable Gabriel, Ankush Chi Primary Care Unavailable Gabriel, Ankush Chi Attending Unavailable Gabriel, Ankush Chi Primary Care Unavailable Allergies Allergy Classification Reported Allergen(s) Allergy Type Date of Onset Reaction(s) Facility (2 sources) Sulfonamides (Antibiotic) Propensity to adverse reactions to drug 0 [place], [place] (12 sources) Sulfonamides (Antibiotic); Translations: [Sulfa (Sulfonamide Antibiotics)] Allergy to substance 0 Shortness of breath [facility] Medications Current Medications Medication Drug Class(es) Dates Sig (Normalized) Sig (Original) Acetaminophen (1 source) Start: 05-01-2020 acetaminophen (TYLENOL) tablet 650 mg atorvastatin 40 mg oral tablet (14 sources) HMG-CoA Reductase Inhibitor Start: 05-29-2018 take 1 tablet by mouth at bedtime Atorvastatin 40 MG tablet Active 40 mg PO AT BEDTIME May 29, 2018 1:00am ergocalciferol 1.25 mg oral capsule (11 sources) Provitamin D2 Compound Start: 04-30-2020 Ergocalciferol (Vitamin D2) 50,000 UNIT capsule Active 80841 U PO DAILY April 30, 2020 1:00am furosemide 20 mg oral tablet (14 sources) Loop Diuretic Start: 09-26-2013 take 1 tablet by mouth once daily Furosemide 20 MG tablet Active 20 mg PO DAILY September 26, 2013 12:00am gabapentin 300 mg oral capsule (14 sources) Anti-epileptic Agent Start: 05-01-2020 take 600 mg by mouth once daily 600 mg, Oral, DAILY, First dose on 05/01/20 at 0900 Start: 09-26-2013 take 1 tablet by casandra th once daily Gabapentin (Neurontin) 600 MG tablet Active 600 mg PO DAILY September 26, 2013 12:00am glucagon (rdna) 1 mg injection (1 source) Antihypoglycemic Agent Start: 05-01-2020 take 1 mL intravenous route every hour 1 mg, Intramuscular, PRN, Low blood sugar, Blood glucose less than 70 mg/dL and patient NOT ALERT or NPO and does not have IV access., Starting 05/01/20 at 0153 After administration, attempt intravenous access and start D5W at 100 mL/hr. Repeat blood glucose in 15 minutes x2 and notify provider. glucose 0.417 mg/mg oral gel (3 sources) Start: 05-01-2020 15 g, Oral, PRN, Low blood sugar, Starting 05/01/20 at 0153 If blood glucose less than 50 mg/dL and patient ALERT and TOLERATING PO, give 2 tubes glucose gel. If blood glucose less than 70 mg/dL and patient ALERT and TOLERATING PO, give 1 tube glucose gel. Repeat blood glucose in 15 minutes. If blood glucose is less than 70 mg/dL, repeat treatment and recheck blood glucose in 15 minutes x2 and notify provider. Start: 05-01-2020 12.5 g, Intrav enous, PRN, Low blood sugar, Blood glucose less than 70 mg/dL and patient NOT ALERT or NPO., Starting 05/01/20 at 0153 If patient does not respond within 5 minutes, repeat dose x1. Start D5W at 100 mL/hour until ordering provider can be reached. Repeat blood glucose in 15 minutes. If blood glucose is less than 70 mg/dL, repeat treatment and recheck blood glucose in 15 minutes x2. If using Glucostabilizer, dose as instructed per system. Start: 05-01-2020 100 mL/hr, Int ravenous, at 100 mL/hr, PRN, Low blood sugar, Starting 05/01/20 at 0153 Start infusion following administration of dextrose 50% or glucagon. 3 ml heparin sodium, porcine 100 unt/ml prefilled syringe (2 sources) Unfractionated Heparin, Anti-coagulant Start: 05-05-2020 heparin flush 100 UNIT/ML injection 250 Units Start: 05-05-2020 heparin flush 100 UNIT/ML injection 250 Units insulin glargine 100 unt/ml injectable solution (14 sources) Insulin Analog Start: 05-01-2020 insulin glargi ne (LANTUS) injection vial 60 Units Start: 09-26-2013 Insulin Glargi ne (Lantus Solostar Pen) 100 UNITS/ML insulin pen Active 60 U SC AT BEDTIME September 26, 2013 12:00am Start: 09-26-2013 Insulin Glargi ne (Lantus Solostar Pen) 100 UNITS/ML insulin pen Active 60 UNITS SC AT BEDTIME September 26, 2013 12:00am insulin glargine (LANTUS) 100 UNIT/ML injection vial Inject 60 Units into the skin nightly 0 Active insulin lispro 100 unt/ml injectable solution (2 sources) Insulin Analog Start: 05-01-2020 0-3 Units, Subcutaneous, NIG HTLY, First dose on 05/01/20 at 2100 If continuous tube feedings/TPN/NPO, give correction dose based on result, no reduction in dose. If eating or bolus tube feeding: Low Dose Bedtime Correction Algorithm Glucose: Dose: 70- 139 No Insulin 140-249 1 Unit 250-349 2 Units 350 and above 3 Units Start: 05-01-2020 0-6 Units, Sub cutaneous, 3 TIMES DAILY WITH MEALS, First dose on 05/01/20 at 0800 Low Dose Correction Algorithm Glucose: Dose: 70-139 No Insulin 140-199 1 Unit 200-249 2 Units 250-299 3 Units 300-349 4 Units 350-399 5 Units 400 and above 6 Units lisinopril 20 mg oral tablet (14 sources) Angiotensin Converting Enzyme Inhibitor Start: 09-26-2013 take 1 tablet by mouth once daily Lisinopril 20 MG tablet Active 20 mg PO DAILY September 26, 2013 12:00am pioglitazone 15 mg oral tablet (15 sources) Peroxisome Proliferator Receptor alpha Agonist, Peroxisome Proliferator Receptor gamma Agonist, Thiazolidinedione Start: 05-02-2020 pioglitazone (ACTOS) tablet 15 mg Start: 04-30-2020 End: 05-01-2020 take 1 tablet by mouth once daily Pioglitazone 30 MG tablet Active 30 mg PO DAILY April 30, 2020 1:00am polyethylene glycol 3350 52091 mg powder for oral solution (1 source) Osmotic Laxative Start: 05-01-2020 17 g, Oral, D AILY PRN, Constipation, Starting 05/01/20 at 0153 First line therapy for constipation Promethazine (1 source) Phenothiazine Start: 05-01-2020 promethazine ( PHENERGAN) tablet 12.5 mg 3 ml sodium chloride 9 mg/ml injection (8 sources) Start: 05-05-2020 sodium chlorid e flush 0.9 % injection 10 mL Start: 05-05-2020 sodium chlorid e flush 0.9 % injection 10 mL Start: 05-05-2020 sodium chlorid e flush 0.9 % injection 10 mL Start: 05-05-2020 sodium chlorid e flush 0.9 % injection 10 mL Start: 05-01-2020 10 mL, Intrave nous, EVERY 12 HOURS SCHEDULED (2 times per day), First dose on 05/01/20 at 0900 Start: 05-01-2020 take 10 mL intraveno us route once as needed 10 mL, Intravenous, PRN, Line Care, After every IV line use, Starting 05/01/20 at 0153 Start: 05-01-2020 End: 05-03-2020 Intravenous, at 75 mL/hr, CONTINUOUS, Starting 05/01/20 at 0215, For 2 days sodium chloride flush 0.9 % injection 3 mL (1 source) Start: 04-30-2020 sodium chlorid e flush 0.9 % injection 3 mL vancomycin (VANCOCIN) 2,000 mg in dextrose 5 % 500 mL IVPB (1 source) Start: 05-01-2020 vancomycin (VA NCOCIN) 2,000 mg in dextrose 5 % 500 mL IVPB vancomycin (VANCOCIN) infusion (1 source) Start: 05-05-2020 End: 05-17-2020 take 2000 mg intravenous route every twelve hours vancomycin (VANCOCIN) infusion Infuse 2,000 mg intravenously every 12 hours for 12 days Compound per protocol. 73823 mg 0 05/05/2020 05/17/2020 Active VITAMIN D PO (2 sources) take 26890 [IU] by mouth once daily VITAMIN D PO Take 50,000 Units by mouth daily 0 Active Completed/Discontinued Medications Medication Drug Class(es) Dates Sig (Normalized) Sig (Original) cyclobenzaprine hydrochloride 10 mg oral tablet (11 sources) Muscle Relaxant Start: 09-26-2013 End: 05-29-2018 take 1 tablet by mouth three times daily as needed for muscle spasms Cyclobenzaprine 10 MG tablet Discontinued 10 mg PO THREE TIMES A DAY as needed for Muscle Spasm 20 0 September 26, 2013 12:00am May 29, 2018 10:36am haloperidol 1 mg oral tablet (11 sources) Typical Antipsychotic Start: 09-26-2013 End: 05-29-2018 take 2 tablets by mouth once daily Haloperidol 1 MG tablet Discontinued 2 mg PO DAILY September 26, 2013 12:00am May 29, 2018 10:37am Start: 09-26-2013 End: 05-29-2018 take 2 mg by mouth once daily Haloperidol Discontinued 2 MG PO DAILY September 26, 2013 12:00am May 29, 2018 10:37am piperacillin 3000 mg / tazobactam 375 mg injection (2 sources) Penicillin-class Antibacterial, beta Lactamase Inhibitor Start: 05-01-2020 End: 05-03-2020 piperacillin-tazobactam (ZOSYN) 3.375 g in dextrose 50 mL IVPB extended infusion (premix) Start: 04-30-2020 End: 04-30-2020 piperacillin-tazobactam (ZOS YN) 4.5 g in dextrose 100 mL IVPB (premix) vancomycin (VANCOCIN) 1,750 mg in dextrose 5 % 500 mL IVPB (1 source) Start: 05-01-2020 End: 05-01-2020 vancomycin (VANCOCIN) 1,750 mg in dextrose 5 % 500 mL IVPB Problems Problem Classification Problem Date Documented Date Episodic/Chronic Diabetes mellitus with complications (2 sources) Type 2 diabetes mellitus with hyperglycemia; Translations: [Type 2 diabetes mellitus with foot ulcer] Onset: 03-12-2024 Chronic Infective arthritis and osteomyelitis (except that caused by tuberculosis or sexually transmitted disease) (14 sources) Osteomyelitis; Translations: [Osteomyelitis of left hand] Onset: 04-30-2020 04-30-2020 Chronic Infective arthritis and osteomyelitis (except that caused by tuberculosis or sexually transmitted disease) (1 source) Osteomyelitis of left hand; Translations: [Osteomyelitis of left hand, unspecified type (HCC)] Septicemia (except in labor) (3 sources) Sepsis due to Staphylococcus aureus; Translations: [Staphylococcus aureus sepsis ([facility])] 05-03-2020 Episodic Substance-related disorders (1 source) Nicotine dependence, cigarettes, uncomplicated; Translations: [Nicotine dependence, cigarettes, uncomplicated] Onset: 01-23-2024 Chronic Results Test Name Value Interpretation Reference Range Facility Absolute lymphocyte countOrd ered By: Ankush Rios on 01-09-2025 Lymphocytes Auto (Unsp spec) [#/Vol] 1.31 10*3/uL 0.83-4.51 [facility] Absolute neutrophil countOrd ered By: Ankush Rios on 01-09-2025 Neutrophils (Bld) [#/Vol] 3.9 10*3/uL 2.0-7.7 [facility] Anion gap in Serum or Plasma Ordered By: Ankush Rios on 01-09-2025 Anion gap [Moles/Vol] 13 mmol/L 5-15 [facility] Automated lymphocyte count a s percentage of total leukocytesOrdered By: Ankush Rios on 01-09-2025 Lymphocytes/100 WBC Auto (Unsp spec) 22.2 % 19-41 [facility] BUN/creatinine ratioOrdered By: Ankush Rois on 01-09-2025 Urea nitrogen/Creatinine [Mass ratio] 22.5 mg/mg High 10-20 [facility] Basophil percentageOrdered B y: Ankush Rios on 01-09-2025 Basophils/100 WBC (Bld) 0.7 % 0-1 [facility] Bilirubin, totalOrdered By: Ankush Rios on 01-09-2025 Bilirubin [Mass/Vol] 0.67 mg/dL 0.00-1.30 [facility] CBC W/Diff, Automatedon 12-23 Absolute Lymph 1.31 X10 3/uL Normal 0.83-4.51 [facility] Comment on above: Performed By: #### L 100.0100, L501.9985, L502.0250, L500.4050, L500.4100, L501.9520, L506.1001 #### [facility] [address] [place], [address] Absolute Neut 3.9 X10 3/uL Normal 2.0-7.7 [facility] Comment on above: Performed By: #### L 100.0100, L501.9985, L502.0250, L500.4050, L500.4100, L501.9520, L506.1001 #### [facility] [address] [place], [address] Basophils/100 WBC (Bld) 0.7 % Normal 0-1 [facility] Comment on above: Performed By: #### L 100.0100, L501.9985, L502.0250, L500.4050, L500.4100, L501.9520, L506.1001 #### [facility] [address] [place], [address] Eosinophils/100 WBC (Bld) 1.5 % Normal 0-5 [facility] Comment on above: Performed By: #### L 100.0100, L501.9985, L502.0250, L500.4050, L500.4100, L501.9520, L506.1001 #### [facility] [address] [place], [address] Erythrocyte distribution width (RBC) [Ratio] 14.4 % Normal 11.6-14.6 [facility] Comment on above: Performed By: #### L 100.0100, L501.9985, L502.0250, L500.4050, L500.4100, L501.9520, L506.1001 #### [facility] [address] [place], [address] Hematocrit (Bld) [Volume fraction] 39.7 % Normal 37-47 [facility] Comment on above: Performed By: #### L 100.0100, L501.9985, L502.0250, L500.4050, L500.4100, L501.9520, L506.1001 #### [facility] [address] [place], [address] Hemoglobin (Bld) [Mass/Vol] 13.1 g/dL Normal 12.0-15.0 [facility] Comment on above: Performed By: #### L 100.0100, L501.9985, L502.0250, L500.4050, L500.4100, L501.9520, L506.1001 #### [facility] [address] [place], [address] IG% 0.800 Normal 0.0-0.9 [facility] Comment on above: Result Comment: IG% - Immature Granulocytes (promyelocytes, myelocytes and metamyelocytes) > 1% indicates that a LEFT SHIFT is Present. Performed By: #### L 100.0100, L501.9985, L502.0250, L500.4050, L500.4100, L501.9520, L506.1001 #### [facility] [address] [place], [address] Lymphocytes/100 WBC (Bld) 22.2 % Normal 19-41 [facility] Comment on above: Performed By: #### L 100.0100, L501.9985, L502.0250, L500.4050, L500.4100, L501.9520, L506.1001 #### [facility] [address] [place], [address] MCH (RBC) [Entitic mass] 32.6 pg High 27.0-32.0 [facility] Comment on above: Performed By: #### L 100.0100, L501.9985, L502.0250, L500.4050, L500.4100, L501.9520, L506.1001 #### [facility] [address] [place], [address] MCHC (RBC) [Mass/Vol] 33.0 g/dL Normal 32-36 [facility] Comment on above: Performed By: #### L 100.0100, L501.9985, L502.0250, L500.4050, L500.4100, L501.9520, L506.1001 #### [facility] [address] [place], [address] MCV (RBC) [Entitic vol] 98.8 fL Normal 81-99 [facility] Comment on above: Performed By: #### L 100.0100, L501.9985, L502.0250, L500.4050, L500.4100, L501.9520, L506.1001 #### [facility] [address] [place], [address] Monocytes/100 WBC (Bld) 8.1 % Normal 0-10 [facility] Comment on above: Performed By: #### L 100.0100, L501.9985, L502.0250, L500.4050, L500.4100, L501.9520, L506.1001 #### [facility] [address] [place], [address] Neutrophils/100 WBC (Bld) 66.7 % Normal 47-70 [facility] Comment on above: Performed By: #### L 100.0100, L501.9985, L502.0250, L500.4050, L500.4100, L501.9520, L506.1001 #### [facility] [address] [place], [address] Nucleated RBC (Bld) [#/Vol] 0 10*3/uL Normal 0-5 [facility] Comment on above: Performed By: #### L 100.0100, L501.9985, L502.0250, L500.4050, L500.4100, L501.9520, L506.1001 #### [facility] [address] [place], [address] Platelet mean volume (Bld) [Entitic vol] 9.8 fL Normal 6.2-12.0 [facility] Comment on above: Performed By: #### L 100.0100, L501.9985, L502.0250, L500.4050, L500.4100, L501.9520, L506.1001 #### [facility] [address] [place], [address] Platelets (Bld) [#/Vol] 242 10*3/uL Normal 150-450 [facility] Comment on above: Performed By: #### L 100.0100, L501.9985, L502.0250, L500.4050, L500.4100, L501.9520, L506.1001 #### [facility] [address] [place], [address] RBC (Bld) [#/Vol] 4.02 10*6/uL Low 4.2-5.4 [facility] Comment on above: Performed By: #### L 100.0100, L501.9985, L502.0250, L500.4050, L500.4100, L501.9520, L506.1001 #### [facility] [address] [place], [address] RDW SD 52.0 fl High 35.1-43.9 [facility] Comment on above: Performed By: #### L 100.0100, L501.9985, L502.0250, L500.4050, L500.4100, L501.9520, L506.1001 #### [facility] [address] [place], [place], [id number] WBC (Bld) [#/Vol] 5.9 10*3/uL Normal 4.4-11.0 [facility] Comment on above: Performed By: #### L 100.0100, L501.9985, L502.0250, L500.4050, L500.4100, L501.9520, L506.1001 #### [facility] [address] [place], [place], [address] Calculated very low density lipoprotein (VLDL) cholesterol measurementOrdered By: Ankush iRos on 01-09-2025 Calculated very low density lipoprotein (VLDL) cholesterol measurement 23 mg/dL 5-40 [facility] Carbon dioxide, total [Moles /volume] in Central venous bloodOrdered By: Ankush Rios on 01-09-2025 CO2 [Moles/Vol] 21.2 mmol/L 21.0-32.0 [facility] Chloride assayOrdered By: Benny Rios on 01-09-2025 Chloride [Moles/Vol] 105 mmol/L 98-108 [facility] Comprehensive Metabolic Prof ilon 01-09-2025 Albumin [Mass/Vol] 3.9 g/dL Normal 3.4-4.8 [facility] Comment on above: Performed By: #### L 100.0100, L501.9985, L502.0250, L500.4050, L500.4100, L501.9520, L506.1001 #### [facility] [address] [place], [address] Albumin/Globulin [Mass ratio] 1.2 {ratio} Normal 0.9-2.4 [facility] Comment on above: Performed By: #### L 100.0100, L501.9985, L502.0250, L500.4050, L500.4100, L501.9520, L506.1001 #### [facility] [address] [place], [address] ALK PHOS 103 U/L Normal 35-104 [facility] Comment on above: Performed By: #### L 100.0100, L501.9985, L502.0250, L500.4050, L500.4100, L501.9520, L506.1001 #### [facility] [address] [place], [address] ALT [Catalytic activity/Vol] 16 U/L Normal <=34 [facility] Comment on above: Performed By: #### L 100.0100, L501.9985, L502.0250, L500.4050, L500.4100, L501.9520, L506.1001 #### [facility] [address] [place], [address] AST [Catalytic activity/Vol] 20 U/L Normal <=31 [facility] Comment on above: Performed By: #### L 100.0100, L501.9985, L502.0250, L500.4050, L500.4100, L501.9520, L506.1001 #### [facility] [address] [place], [address] Bilirubin [Mass/Vol] 0.67 mg/dL Normal 0.00-1.30 [facility] Comment on above: Performed By: #### L 100.0100, L501.9985, L502.0250, L500.4050, L500.4100, L501.9520, L506.1001 #### [facility] [address] [place], [address] BUN/CRE 22.5 RATIO High 10-20 [facility] Comment on above: Performed By: #### L 100.0100, L501.9985, L502.0250, L500.4050, L500.4100, L501.9520, L506.1001 #### [facility] [address] [place], [address] Calcium [Mass/Vol] 9.3 mg/dL Normal 7.6-11.0 [facility] Comment on above: Performed By: #### L 100.0100, L501.9985, L502.0250, L500.4050, L500.4100, L501.9520, L506.1001 #### [facility] [address] [place], [address] Chloride [Moles/Vol] 105 mmol/L Normal 98-108 [facility] Comment on above: Performed By: #### L 100.0100, L501.9985, L502.0250, L500.4050, L500.4100, L501.9520, L506.1001 #### [facility] [address] [place], [address] CO2 [Moles/Vol] 21.2 mmol/L Normal 21.0-32.0 [facility] Comment on above: Performed By: #### L 100.0100, L501.9985, L502.0250, L500.4050, L500.4100, L501.9520, L506.1001 #### [facility] [address] [place], [address] Creatinine [Mass/Vol] 0.75 mg/dL Normal 0.70-1.20 [facility] Comment on above: Performed By: #### L 100.0100, L501.9985, L502.0250, L500.4050, L500.4100, L501.9520, L506.1001 #### [facility] [address] [place], [address] GAP 13 Normal 5-15 [facility] Comment on above: Performed By: #### L 100.0100, L501.9985, L502.0250, L500.4050, L500.4100, L501.9520, L506.1001 #### [facility] [address] [place], [address] GFR/1.73 sq M.predicted among non-blacks MDRD (S/P/Bld) [Vol rate/Area] 84 mL/min/{1.73_m2} Normal >60 [facility] Comment on above: Result Comment: mL/m in/1.73m2 CKD-EPI Creatinine Equation (2020) Performed By: #### L 100.0100, L501.9985, L502.0250, L500.4050, L500.4100, L501.9520, L506.1001 #### [facility] [address] [place], [address] Globulin (S) [Mass/Vol] 3.1 g/dL Normal 2.2-4.2 [facility] Comment on above: Performed By: #### L 100.0100, L501.9985, L502.0250, L500.4050, L500.4100, L501.9520, L506.1001 #### [facility] [address] [place], [address] Glucose [Mass/Vol] 146 mg/dL High 70-99 [facility] Comment on above: Performed By: #### L 100.0100, L501.9985, L502.0250, L500.4050, L500.4100, L501.9520, L506.1001 #### [facility] [address] [place], [address] Potassium [Moles/Vol] 4.3 mmol/L Normal 3.3-5.1 [facility] Comment on above: Performed By: #### L 100.0100, L501.9985, L502.0250, L500.4050, L500.4100, L501.9520, L506.1001 #### [facility] [address] [place], [address] Sodium [Moles/Vol] 139 mmol/L Normal 133-145 [facility] Comment on above: Performed By: #### L 100.0100, L501.9985, L502.0250, L500.4050, L500.4100, L501.9520, L506.1001 #### [facility] [address] [place], [address] T PROT 7.0 g/dL Normal 5.9-8.4 [facility] Comment on above: Performed By: #### L 100.0100, L501.9985, L502.0250, L500.4050, L500.4100, L501.9520, L506.1001 #### [facility] [address] [place], [address] Urea nitrogen [Mass/Vol] 17 mg/dL Normal 4-19 [facility] Comment on above: Performed By: #### L 100.0100, L501.9985, L502.0250, L500.4050, L500.4100, L501.9520, L506.1001 #### [facility] [address] [place], [address] Eosinophil percentageOrdered By: Ankush Rios on 01-09-2025 Eosinophils/100 WBC (Bld) 1.5 % 0-5 [facility] Erythrocyte distribution wid th ratioOrdered By: Ankush Rios on 01-09-2025 Erythrocyte distribution width (RBC) [Ratio] 14.4 % 11.6-14.6 [facility] Erythrocyte distribution wid th standard deviationOrdered By: Ankush Rios on 01-09-2025 Erythrocyte distribution width (RBC) [Ratio] 52.0 fl High 35.1-43.9 [facility] Glomerular filtration rate ( GFR) estimation/1.73 sq m using serum, plasma, or whole bOrdered By: Ankush Rios 01-09-2025 GFR/1.73 sq M.predicted among non-blacks MDRD (S/P/Bld) [Vol rate/Area] 84 mL/min/{1.73_m2} >60 [facility] Comment on above: mL/min/1.73m2 CKD-EP I Creatinine Equation (2020) Hematocrit Auto (Bld) [Volum e fraction]Ordered By: Ankush Rios on 01-09-2025 Hematocrit (Bld) [Volume fraction] 39.7 % 37-47 [facility] Hemoglobin A1con 01-09-2025 HbA1c (Bld) [Mass fraction] 6.6 % High <=5.6 [facility] Comment on above: Result Comment: Norm al < 5.7 % Prediabetic 5.7 - 6.4 % Diabetic >or= 6.5 % Please note range changes. Performed By: #### L 100.0100, L501.9985, L502.0250, L500.4050, L500.4100, L501.9520, L506.1001 #### [facility] Laboratory [facility] [place] [address], [address] Hemoglobin A1c percentageOrd ered By: Ankush Rios on 01-09-2025 HbA1c (Bld) [Mass fraction] 6.6 % High <5.7 [facility] Comment on above: Normal < 5.7 % Predi abetic 5.7 - 6.4 % Diabetic >or= 6.5 % Please note range changes. Hemoglobin measurementOrdere d By: Ankush Rios on 01-09-2025 Hemoglobin (Bld) [Mass/Vol] 13.1 g/dL 12.0-15.0 [facility] Immature granulocytes/100 WB C Auto (Bld)Ordered By: Ankush Rios on 01-09-2025 Immature granulocytes/100 WBC (Bld) 0.800 % 0.0-0.9 [facility] Comment on above: IG% - Immature Granu locytes (promyelocytes, myelocytes and metamyelocytes) > 1% indicates that a LEFT SHIFT is Present. LDL calc ser/plasOrdered By: Ankush Rios on 01-09-2025 Cholesterol in LDL [Mass/Vol] 106 mg/dL [facility] Comment on above: Qnxsxmjefr=015-432 m g/dL & Higher Dkxv=578 mg/dL or greater Laboratory - Chemistry and C hemistry - challengeOrdered By: Ankush Rios on 01-09-2025 AST [Catalytic activity/Vol] 20 U/L <32 [facility] Lipid Profileon 01-09-2025 CHOL:HDL 2.76 Normal [facility] Comment on above: Performed By: #### L 100.0100, L501.9985, L502.0250, L500.4050, L500.4100, L501.9520, L506.1001 #### [facility] Laboratory [address] [place], [address] Cholesterol [Mass/Vol] 202 mg/dL High <=200 [facility] Comment on above: Result Comment: Chol esterol level, Desirable <200 mg/dL Borderline high cholesterol 200-239 mg/dL High cholesterol >=240 mg/dL Recommendations of the NCEP Adult Treatment Panel for the following risk-cutoff thresholds for the [place] population. Performed By: #### L 100.0100, L501.9985, L502.0250, L500.4050, L500.4100, L501.9520, L506.1001 #### [facility] Laboratory [address] [place], [address] Cholesterol in HDL [Mass/Vol] 73 mg/dL Normal [facility] Comment on above: Result Comment: Aleja onal Cholesterol Education Program (NCEP) guidelines: <40 mg/dL: Low HDL-cholesterol (major risk factor for CHD) >= 60 mg/dL: High HDL-cholesterol (negative risk factor for CHD) HDL-cholesterol is affected by a number of factors, e.g. smoking, exercise, hormones, sex and age. Performed By: #### L 100.0100, L501.9985, L502.0250, L500.4050, L500.4100, L501.9520, L506.1001 #### [facility] Laboratory [address] [place], [address] Cholesterol in LDL [Mass/Vol] 106 mg/dL Normal [facility] Comment on above: Result Comment: Bord cutxne=587-496 mg/dL Higher Maqa=728 mg/dL or greater Performed By: #### L 100.0100, L501.9985, L502.0250, L500.4050, L500.4100, L501.9520, L506.1001 #### [facility] Laboratory [address] [place], [address] Cholesterol in VLDL [Mass/Vol] 23 mg/dL Normal 5-40 [facility] Comment on above: Performed By: #### L 100.0100, L501.9985, L502.0250, L500.4050, L500.4100, L501.9520, L506.1001 #### [facility] Laboratory [address] [place], [address] Triglyceride [Mass/Vol] 115 mg/dL Normal [facility] Comment on above: Result Comment: The drugs N-Acetylcysteine and Metamizole may falsely depress this assay. Normal range: <150 mg/dL Borderline High: 150-199 mg/dL High: 200-499 mg/dL Very High: >500 mg/dL Performed By: #### L 100.0100, L501.9985, L502.0250, L500.4050, L500.4100, L501.9520, L506.1001 #### [facility] Laboratory [address] [place], [place], [id number] MCV (mean corpuscular volume ) determinationOrdered By: Ankush Rios on 01-09-2025 MCV (RBC) [Entitic vol] 98.8 fL 81-99 [facility] Mean corpuscular hemoglobin (MCH) determinationOrdered By: Ankush Rios on 01-09-2025 MCH (RBC) [Entitic mass] 32.6 pg High 27.0-32.0 [facility] Mean corpuscular hemoglobin concentration (MCHC) determinationOrdered By: Ankush Rios on 01-09-2025 MCHC (RBC) [Mass/Vol] 33.0 g/dL 32-36 [facility] Mean platelet volume determi nationOrdered By: Ankush Rios on 01-09-2025 Platelet mean volume (Bld) [Entitic vol] 9.8 fL 6.2-12.0 [facility] Microalb:Creat Ratio,Random URon 01-09-2025 Creatinine [Mass/Vol] 97.90 mg/dL Normal 28.00-217.00 [facility] Comment on above: Performed By: #### L 100.0100, L501.9985, L502.0250, L500.4050, L500.4100, L501.9520, L506.1001 #### [facility] Laboratory [address] [place], [place], [id number] MALB:CREAT 27.1 mg/g CRE Normal <30 mg/g CRE [facility] Comment on above: Performed By: #### L 100.0100, L501.9985, L502.0250, L500.4050, L500.4100, L501.9520, L506.1001 #### [facility] Laboratory [address] [place], [place], [id number] MICROALBUMIN,UR 26.5 mg/L Normal <20 mg/L [facility] Comment on above: Performed By: #### L 100.0100, L501.9985, L502.0250, L500.4050, L500.4100, L501.9520, L506.1001 #### [facility] Laboratory [address] [place], [place], [id number] Monocyte percentageOrdered B y: Ankush Rios on 01-09-2025 Monocytes/100 WBC (Bld) 8.1 % 0-10 [facility] Neutrophil percentageOrdered By: Ankush Garciaok on 01-09-2025 Neutrophils/100 WBC (Bld) 66.7 % 47-70 [facility] Nucleated red blood cell per centageOrdered By: Ankush Rios on 01-09-2025 Nucleated RBC/100 WBC (Bld) [Ratio] 0 % 0-5 [facility] Platelet countOrdered By: Benny Rios on 01-09-2025 Platelets (Bld) [#/Vol] 242 10*3/uL 150-450 [facility] Potassium measurement (mass/ volume)Ordered By: Ankush Rios on 01-09-2025 Potassium (Unsp spec) [Mass/Vol] 4.3 mmol/L 3.3-5.1 [facility] RBC Auto (Bld) [#/Vol]Ordere d By: Ankush Rios on 01-09-2025 RBC (Bld) [#/Vol] 4.02 10*6/uL Low 4.2-5.4 [facility] Random urine creatinine don urement (mass/volume)Ordered By: Ankush Rios on 01-09-2025 Creatinine Unsp time (U) [Mass/Vol] 97.90 mg/dL 28.00-217.00 [facility] Screening total cholesterol/ high density lipoprotein (HDL) cholesterol ratioOrdered By: Ankush Rios 01-09-2025 Cholesterol.total/Choles terol in HDL [Mass ratio] 2.76 {ratio} [facility] Serum creatinine measurement (mass/volume)Ordered By: Ankush Rios on 01-09-2025 Creatinine [Mass/Vol] 0.75 mg/dL 0.70-1.20 [facility] Serum globulin measurementOr dered By: Ankush Rios 01-09-2025 Globulin (S) [Mass/Vol] 3.1 g/dL 2.2-4.2 [facility] Serum glucose measurement (m ass/volume)Ordered By: Ankush Rios 01-09-2025 Glucose [Mass/Vol] 146 mg/dL High 70-99 [facility] Serum or plasma alanine bower otransferase (ALT) measurementOrdered By: Ankush Rios 01-09-2025 ALT [Catalytic activity/Vol] 16 U/L <35 [facility] Serum or plasma albumin don urement (mass/volume)Ordered By: Ankush Rios 01-09-2025 Albumin [Mass/Vol] 3.9 g/dL 3.4-4.8 [facility] Serum or plasma albumin/glob ulin mass ratioOrdered By: Ankush Rios 01-09-2025 Albumin/Globulin [Mass ratio] 1.2 {ratio} 0.9-2.4 [facility] Serum or plasma alkaline laney sphatase measurementOrdered By: Ankush Rios 01-09-2025 ALP [Catalytic activity/Vol] 103 U/L 35-104 [facility] Serum or plasma calcium don urement (mass/volume)Ordered By: Ankush Rios 01-09-2025 Calcium [Mass/Vol] 9.3 mg/dL 7.6-11.0 [facility] Serum or plasma cholesterol in HDL measurement (mass/volume)Ordered By: Ankush Rios 01-09-2025 Cholesterol in HDL [Mass/Vol] 73 mg/dL >40 [facility] Comment on above: National Cholesterol Education Program (NCEP) guidelines:<40 mg/dL: Low HDL-cholesterol (major risk factor for CHD)>= 60 mg/dL: High HDL-cholesterol (negative risk factor for CHD)HDL-cholesterol is affected by a number of factors, e.g. smoking, exercise, hormones, sex and age. Serum or plasma cholesterol measurement (mass/volume)Ordered By: Ankush Rios on 01-09-2025 Cholesterol [Mass/Vol] 202 mg/dL High <201 [facility] Comment on above: Cholesterol level, D esirable <200 mg/dLBorderline high cholesterol 200-239 mg/dLHigh cholesterol >=240 mg/dLRecommendations of the NCEP Adult Treatment Panel for the following risk-cutoff thresholds for the [place] population. Serum or plasma urea nitroge n measurement (mass/volume)Ordered By: Ankush Rios 01-09-2025 Urea nitrogen [Mass/Vol] 17 mg/dL 4-19 [facility] Sodium levelOrdered By: Ankush Rios 01-09-2025 Sodium [Moles/Vol] 139 mmol/L 133-145 [facility] TSH DL <= 0.005 mIU/L QnOrde red By: Ankush Rios on 01-09-2025 TSH Qn 1.670 uIU/mL 0.300-4.200 [facility] Thyroid Stim Hormone (TSH)on 01-09-2025 TSH 1.670 uIU/mL Normal 0.300-4.200 [facility] Comment on above: Performed By: #### L 100.0100, L501.9985, L502.0250, L500.4050, L500.4100, L501.9520, L506.1001 #### [facility] Laboratory [address] [place], [place], [id number] Total proteinOrdered By: Ankush Rios on 01-09-2025 Protein [Mass/Vol] 7.0 g/dL 5.9-8.4 [facility] Triglycerides measurementOrd ered By: Ankush Rios on 01-09-2025 Triglyceride [Mass/Vol] 115 mg/dL <199 [facility] Comment on above: The drugs N-Acetylcy steine and Metamizole may falsely depress this assay. Normal range: <150 mg/dLBorderline High: 150-199 mg/dLHigh: 200-499 mg/dLVery High: >500 mg/dL Urine albumin measurement [facility] detection limit of 20 mg/L or less (mass/volume)Ordered By: Ankush Rios on 01-09-2025 Albumin DL <= 20 mg/L (U) [Mass/Vol] 26.5 mg/L <20 mg/L [facility] Vitamin D,25 Hydroxyon 01-09 Vitamin D 25-OH 39.2 ng/mL Normal 30-100 [facility] Comment on above: Result Comment: Vilma min D Status Deficiency: <20 ng/mL (50nmol/L) Insufficiency: 20-30 ng/mL (50-75 nmol/L) Sufficiency: 30-100 ng/mL (75-250 nmol/L) Toxicity: >100 ng/mL (>250 nmol/L) Performed By: #### L 100.0100, L501.9985, L502.0250, L500.4050, L500.4100, L501.9520, L506.1001 #### [facility] Laboratory [address] [place], [place], [id number] White blood cell (WBC) count Ordered By: Ankush Rios on 01-09-2025 WBC (Bld) [#/Vol] 5.9 10*3/uL 4.4-11.0 [facility] CBC W/Diff, Automatedon -06 26-2024 Absolute Lymph 1.42 X10 3/uL Normal 0.83-4.51 [facility] Comment on above: Performed By: #### L 100.0100, L501.9985, L502.0250, L500.4050, L500.4100, L501.9520, L506.1001 #### [facility] Laboratory [address] [place], [address] Absolute Neut 3.2 X10 3/uL Normal 2.0-7.7 [facility] Comment on above: Performed By: #### L 100.0100, L501.9985, L502.0250, L500.4050, L500.4100, L501.9520, L506.1001 #### [facility] Laboratory [address] [place], [address] Basophils/100 WBC (Bld) 0.6 % Normal 0-1 [facility] Comment on above: Performed By: #### L 100.0100, L501.9985, L502.0250, L500.4050, L500.4100, L501.9520, L506.1001 #### [facility] Laboratory [address] [place], [address] Eosinophils/100 WBC (Bld) 1.5 % Normal 0-5 [facility] Comment on above: Performed By: #### L 100.0100, L501.9985, L502.0250, L500.4050, L500.4100, L501.9520, L506.1001 #### [facility] Laboratory [address] [place], [address] Erythrocyte distribution width (RBC) [Ratio] 12.9 % Normal 11.6-14.6 [facility] Comment on above: Performed By: #### L 100.0100, L501.9985, L502.0250, L500.4050, L500.4100, L501.9520, L506.1001 #### [facility] Laboratory [address] [place], [address] Hematocrit (Bld) [Volume fraction] 43.7 % Normal 37-47 [facility] Comment on above: Performed By: #### L 100.0100, L501.9985, L502.0250, L500.4050, L500.4100, L501.9520, L506.1001 #### [facility] Laboratory [address] [place], [address] Hemoglobin (Bld) [Mass/Vol] 13.8 g/dL Normal 12.0-15.0 [facility] Comment on above: Performed By: #### L 100.0100, L501.9985, L502.0250, L500.4050, L500.4100, L501.9520, L506.1001 #### [facility] Laboratory [address] [place], [address] IG% 0.800 Normal 0.0-0.9 [facility] Comment on above: Result Comment: IG% - Immature Granulocytes (promyelocytes, myelocytes and metamyelocytes) > 1% indicates that a LEFT SHIFT is Present. Performed By: #### L 100.0100, L501.9985, L502.0250, L500.4050, L500.4100, L501.9520, L506.1001 #### [facility] Laboratory [address] [place], [address] Lymphocytes/100 WBC (Bld) 27.3 % Normal 19-41 [facility] Comment on above: Performed By: #### L 100.0100, L501.9985, L502.0250, L500.4050, L500.4100, L501.9520, L506.1001 #### [facility] Laboratory [address] [place], [address] MCH (RBC) [Entitic mass] 31.9 pg Normal 27.0-32.0 [facility] Comment on above: Performed By: #### L 100.0100, L501.9985, L502.0250, L500.4050, L500.4100, L501.9520, L506.1001 #### [facility] Laboratory [address] [place], [address] MCHC (RBC) [Mass/Vol] 31.6 g/dL Low 32-36 [facility] Comment on above: Performed By: #### L 100.0100, L501.9985, L502.0250, L500.4050, L500.4100, L501.9520, L506.1001 #### [facility] Laboratory [address] [place], [address] MCV (RBC) [Entitic vol] 100.9 fL High 81-99 [facility] Comment on above: Performed By: #### L 100.0100, L501.9985, L502.0250, L500.4050, L500.4100, L501.9520, L506.1001 #### [facility] Laboratory [address] [place], [address] Monocytes/100 WBC (Bld) 9.4 % Normal 0-10 [facility] Comment on above: Performed By: #### L 100.0100, L501.9985, L502.0250, L500.4050, L500.4100, L501.9520, L506.1001 #### [facility] Laboratory [address] [place], [address] Neutrophils/100 WBC (Bld) 60.4 % Normal 47-70 [facility] Comment on above: Performed By: #### L 100.0100, L501.9985, L502.0250, L500.4050, L500.4100, L501.9520, L506.1001 #### [facility] Laboratory [address] [place], [address] Nucleated RBC (Bld) [#/Vol] 0 10*3/uL Normal 0-5 [facility] Comment on above: Performed By: #### L 100.0100, L501.9985, L502.0250, L500.4050, L500.4100, L501.9520, L506.1001 #### [facility] Laboratory [address] [place], [address] Platelet mean volume (Bld) [Entitic vol] 10.8 fL Normal 6.2-12.0 [facility] Comment on above: Performed By: #### L 100.0100, L501.9985, L502.0250, L500.4050, L500.4100, L501.9520, L506.1001 #### [facility] Laboratory [address] [place], [address] Platelets (Bld) [#/Vol] 231 10*3/uL Normal 150-450 [facility] Comment on above: Performed By: #### L 100.0100, L501.9985, L502.0250, L500.4050, L500.4100, L501.9520, L506.1001 #### [facility] Laboratory [address] [place], [address] RBC (Bld) [#/Vol] 4.33 10*6/uL Normal 4.2-5.4 [facility] Comment on above: Performed By: #### L 100.0100, L501.9985, L502.0250, L500.4050, L500.4100, L501.9520, L506.1001 #### [facility] Laboratory [address] [place], [address] RDW SD 48.4 fl High 35.1-43.9 [facility] Comment on above: Performed By: #### L 100.0100, L501.9985, L502.0250, L500.4050, L500.4100, L501.9520, L506.1001 #### [facility] Laboratory [address] [place], [address] WBC (Bld) [#/Vol] 5.2 10*3/uL Normal 4.4-11.0 [facility] Comment on above: Performed By: #### L 100.0100, L501.9985, L502.0250, L500.4050, L500.4100, L501.9520, L506.1001 #### [facility] Laboratory [address] [place], [address] Comprehensive Metabolic Prof ilon 08-06-2024 Albumin [Mass/Vol] 3.2 g/dL Normal 3.2-5.0 [facility] Comment on above: Performed By: #### L 100.0100, L501.9985, L502.0250, L500.4050, L500.4100, L501.9520, L506.1001 #### [facility] Laboratory [address] [place], [address] Albumin/Globulin [Mass ratio] 0.8 {ratio} Low 0.9-2.4 [facility] Comment on above: Performed By: #### L 100.0100, L501.9985, L502.0250, L500.4050, L500.4100, L501.9520, L506.1001 #### [facility] Laboratory [address] [place], [address] ALK P 98 U/L Normal 45-117 [facility] Comment on above: Performed By: #### L 100.0100, L501.9985, L502.0250, L500.4050, L500.4100, L501.9520, L506.1001 #### [facility] Laboratory [address] [place], [address] ALT [Catalytic activity/Vol] 19 U/L Normal 13-56 [facility] Comment on above: Performed By: #### L 100.0100, L501.9985, L502.0250, L500.4050, L500.4100, L501.9520, L506.1001 #### [facility] Laboratory [address] [place], [address] AST [Catalytic activity/Vol] 16 U/L Normal 15-37 [facility] Comment on above: Performed By: #### L 100.0100, L501.9985, L502.0250, L500.4050, L500.4100, L501.9520, L506.1001 #### [facility] [address] [place], [address] Bilirubin [Mass/Vol] 0.40 mg/dL Normal 0.20-1.00 [facility] Comment on above: Result Comment: For patients on eltrombopag therapy, use of Dimension Purmela TBIL is not recommended. Performed By: #### L 100.0100, L501.9985, L502.0250, L500.4050, L500.4100, L501.9520, L506.1001 #### [facility] Laboratory [address] [place], [address] BUN/CRE 30.0 RATIO High 10-20 [facility] Comment on above: Performed By: #### L 100.0100, L501.9985, L502.0250, L500.4050, L500.4100, L501.9520, L506.1001 #### [facility] Laboratory [address] [place], [address] CA,Total 9.3 mg/dL Normal 8.5-10.1 [facility] Comment on above: Performed By: #### L 100.0100, L501.9985, L502.0250, L500.4050, L500.4100, L501.9520, L506.1001 #### [facility] Laboratory [address] [place], [address] Chloride [Moles/Vol] 105 mmol/L Normal 98-107 [facility] Comment on above: Performed By: #### L 100.0100, L501.9985, L502.0250, L500.4050, L500.4100, L501.9520, L506.1001 #### [facility] [address] [place], [address] CO2 [Moles/Vol] 28.0 mmol/L Normal 21.0-32.0 [facility] Comment on above: Performed By: #### L 100.0100, L501.9985, L502.0250, L500.4050, L500.4100, L501.9520, L506.1001 #### [facility] [address] [place], [address] Creatinine [Mass/Vol] 0.70 mg/dL Normal 0.55-1.02 [facility] Comment on above: Result Comment: The validity of the calculated GFR GFRAA in patients over 70 years has not been determined. Clinical correlation is essential. Performed By: #### L 100.0100, L501.9985, L502.0250, L500.4050, L500.4100, L501.9520, L506.1001 #### [facility] [address] [place], [address] EST GFR - AA 105 mL/min Normal >60 [facility] Comment on above: Result Comment: Afri can Indian GFR Calc Performed By: #### L 100.0100, L501.9985, L502.0250, L500.4050, L500.4100, L501.9520, L506.1001 #### [facility] [address] [place], [address] GAP 4 Low 5-15 [facility] Comment on above: Performed By: #### L 100.0100, L501.9985, L502.0250, L500.4050, L500.4100, L501.9520, L506.1001 #### [facility] [address] [place], [address] GFR/1.73 sq M.predicted among non-blacks MDRD (S/P/Bld) [Vol rate/Area] 87 mL/min/{1.73_m2} Normal >60 [facility] Comment on above: Result Comment: Non- GFR Calc Performed By: #### L 100.0100, L501.9985, L502.0250, L500.4050, L500.4100, L501.9520, L506.1001 #### [facility] [address] [place], [address] Globulin (S) [Mass/Vol] 3.9 g/dL Normal 2.2-4.2 [facility] Comment on above: Performed By: #### L 100.0100, L501.9985, L502.0250, L500.4050, L500.4100, L501.9520, L506.1001 #### [facility] [address] [place], [address] Glucose [Mass/Vol] 81 mg/dL Normal 74-106 [facility] Comment on above: Performed By: #### L 100.0100, L501.9985, L502.0250, L500.4050, L500.4100, L501.9520, L506.1001 #### [facility] [address] [place], [address] Potassium [Moles/Vol] 4.3 mmol/L Normal 3.5-5.1 [facility] Comment on above: Performed By: #### L 100.0100, L501.9985, L502.0250, L500.4050, L500.4100, L501.9520, L506.1001 #### [facility] [address] [place], [address] Sodium [Moles/Vol] 137 mmol/L Normal 136-145 [facility] Comment on above: Performed By: #### L 100.0100, L501.9985, L502.0250, L500.4050, L500.4100, L501.9520, L506.1001 #### [facility] [address] [place], [address] T PROT 7.1 g/dL Normal 6.4-8.2 [facility] Comment on above: Performed By: #### L 100.0100, L501.9985, L502.0250, L500.4050, L500.4100, L501.9520, L506.1001 #### [facility] [address] [place], [address] Urea nitrogen [Mass/Vol] 21 mg/dL High 7-18 [facility] Comment on above: Performed By: #### L 100.0100, L501.9985, L502.0250, L500.4050, L500.4100, L501.9520, L506.1001 #### [facility] [address] [place], [address] Hemoglobin A1con 08-06-2024 HbA1c (Bld) [Mass fraction] 6.2 % High 3.8-5.6 [facility] Comment on above: Result Comment: Norm al < 5.7 % Prediabetic 5.7 - 6.4 % Diabetic >or= 6.5 % Please note range changes. Performed By: #### L 100.0100, L501.9985, L502.0250, L500.4050, L500.4100, L501.9520, L506.1001 #### [facility] [address] [place], [address] Lipid Profileon 08-06-2024 Cholesterol [Mass/Vol] 185 mg/dL Normal 200 [facility] Comment on above: Result Comment: <200 mg/dL Desirable 200-240 mg/dL Borderline >240 mg/dL High Risk Performed By: #### L 100.0100, L501.9985, L502.0250, L500.4050, L500.4100, L501.9520, L506.1001 #### [facility] [address] [place], [address] Cholesterol in HDL [Mass/Vol] 70 mg/dL Normal [facility] Comment on above: Result Comment: The drugs N-Acetylcysteine and Metamizole may falsely depress this assay. Reference Range HDL <40 mg/dL Low HDL Cholesterol HDL >or= 60 mg/dL High HDL Cholesterol Performed By: #### L 100.0100, L501.9985, L502.0250, L500.4050, L500.4100, L501.9520, L506.1001 #### [facility] [address] [place], [address] Cholesterol in LDL [Mass/Vol] 95 mg/dL Normal 0-130 [facility] Comment on above: Performed By: #### L 100.0100, L501.9985, L502.0250, L500.4050, L500.4100, L501.9520, L506.1001 #### [facility] [address] [place], [address] Cholesterol in VLDL [Mass/Vol] 20 mg/dL Normal 5-40 [facility] Comment on above: Performed By: #### L 100.0100, L501.9985, L502.0250, L500.4050, L500.4100, L501.9520, L506.1001 #### [facility] [address] [place], [address] Triglyceride [Mass/Vol] 98 mg/dL Normal [facility] Comment on above: Result Comment: The drugs N-Acetylcysteine and Metamizole may falsely depress this assay. Serum Triglycerides Reference Interval Normal <150 mg/dL Borderline high 150 - 199 mg/dL High 200 - 499 mg/dL Very High > or = 500 mg/dL Performed By: #### L 100.0100, L501.9985, L502.0250, L500.4050, L500.4100, L501.9520, L506.1001 #### [facility] [address], [address] Thyroid Stim Hormone (TSH)on 08-06-2024 TSH 2.390 uIU/mL Normal 0.358-3.740 [facility] Comment on above: Performed By: #### L 100.0100, L501.9985, L502.0250, L500.4050, L500.4100, L501.9520, L506.1001 #### [facility] [address] [place], [address] [id number] 04-27-2024 [id number] ONLY AEROBIC SWAB RECEIVED FOR CULTURE. GROWTH OF ANAEROBES MAY BE INHIBITED. GREAT RIGHT TOE Test not performed Normal [facility] Comment on above: Performed By: #### L 100.0100, L501.9985, L502.0250, L500.4050, L500.4100, L501.9520, L506.1001 #### [facility] [address], [address] [id number] 04-12-2024 VIT D,25 HYDROX Normal [facility] Comment on above: Result Comment: TEST RESULTS LIMITS Vitamin D, 25-Hydroxy 42.8 ng/mL 30.0-100.0 Vitamin D deficiency has been defined by the [place] of [employer] and an Endocrine Society practice guideline as a level of serum 25-OH vitamin D less than 20 ng/mL (1,2). The Endocrine Society went on to further define vitamin D insufficiency as a level between 21 and 29 ng/mL (2). 1. IOM ([place] of Medicine). 2010. Dietary reference intakes for calcium and D. [place]: The National Academies Press. 2. Pratima MF, Khalif [place], Josue WILLARD, et al. Evaluation, treatment, and prevention of vitamin D deficiency: an Endocrine Society clinical practice guideline. JCEM. 2010; 96(7):1911-30. TESTING PERFORMED AT [facility]. ORIGINAL REPORT ON FILE IN LAB CONTAINS ADDITIONAL TEST SITE INFORMATION. Performed By: #### L 100.0100, L501.9985, L502.0250, L500.4050, L500.4100, L501.9520, L506.1001 #### [facility] [address] [place], [address] CBC W/Diff, Automatedon 10 Absolute Lymph 1.49 X10 3/uL Normal 0.83-4.51 [facility] Comment on above: Performed By: #### L 100.0100, L500.4050, L501.9520, L3300.0940 #### [facility] [address] [place], [address] Absolute Neut 3.9 X10 3/uL Normal 2.0-7.7 [facility] Comment on above: Performed By: #### L 100.0100, L500.4050, L501.9520, L3300.0940 #### [facility] [address] [place], [address] Basophils/100 WBC (Bld) 0.5 % Normal 0-1 [facility] Comment on above: Performed By: #### L 100.0100, L500.4050, L501.9520, L3300.0940 #### [facility] [address] [place], [address] Eosinophils/100 WBC (Bld) 1.3 % Normal 0-5 [facility] Comment on above: Performed By: #### L 100.0100, L500.4050, L501.9520, L3300.0940 #### [facility] [address] [place], [address] Erythrocyte distribution width (RBC) [Ratio] 13.6 % Normal 11.6-14.6 [facility] Comment on above: Performed By: #### L 100.0100, L500.4050, L501.9520, L3300.0940 #### [facility] [address] [place], [address] Hematocrit (Bld) [Volume fraction] 43.5 % Normal 37-47 [facility] Comment on above: Performed By: #### L 100.0100, L500.4050, L501.9520, L3300.0940 #### [facility] [address] [place], [address] Hemoglobin (Bld) [Mass/Vol] 13.7 g/dL Normal 12.0-15.0 [facility] Comment on above: Performed By: #### L 100.0100, L500.4050, L501.9520, L3300.0940 #### [facility] [address] [place], [address] IG% 1.000 High 0.0-0.9 [facility] Comment on above: Result Comment: IG% - Immature Granulocytes (promyelocytes, myelocytes and metamyelocytes) > 1% indicates that a LEFT SHIFT is Present. Performed By: #### L 100.0100, L500.4050, L501.9520, L3300.0940 #### [facility] [facility] [address] [place], [address] Lymphocytes/100 WBC (Bld) 24.5 % Normal 19-41 [facility] Comment on above: Performed By: #### L 100.0100, L500.4050, L501.9520, L3300.0940 #### [facility] [address] [place], [address] MCH (RBC) [Entitic mass] 32.0 pg Normal 27.0-32.0 [facility] Comment on above: Performed By: #### L 100.0100, L500.4050, L501.9520, L3300.0940 #### [facility] [address] [place], [address] MCHC (RBC) [Mass/Vol] 31.5 g/dL Low 32-36 [facility] Comment on above: Performed By: #### L 100.0100, L500.4050, L501.9520, L3300.0940 #### [facility] [address] [place], [address] MCV (RBC) [Entitic vol] 101.6 fL High 81-99 [facility] Comment on above: Performed By: #### L 100.0100, L500.4050, L501.9520, L3300.0940 #### [facility] [address] [place], [address] Monocytes/100 WBC (Bld) 9.2 % Normal 0-10 [facility] Comment on above: Performed By: #### L 100.0100, L500.4050, L501.9520, L3300.0940 #### [facility] [address] [place], [address] Neutrophils/100 WBC (Bld) 63.5 % Normal 47-70 [facility] Comment on above: Performed By: #### L 100.0100, L500.4050, L501.9520, L3300.0940 #### [facility] [address] [place], [address] Nucleated RBC (Bld) [#/Vol] 0 10*3/uL Normal 0-5 [facility] Comment on above: Performed By: #### L 100.0100, L500.4050, L501.9520, L3300.0940 #### [facility] [address] [place], [address] Platelet mean volume (Bld) [Entitic vol] 10.6 fL Normal 6.2-12.0 [facility] Comment on above: Performed By: #### L 100.0100, L500.4050, L501.9520, L3300.0940 #### [facility] [address] [place], [address] Platelets (Bld) [#/Vol] 235 10*3/uL Normal 150-450 [facility] Comment on above: Performed By: #### L 100.0100, L500.4050, L501.9520, L3300.0940 #### [facility] [address] [place], [address] RBC (Bld) [#/Vol] 4.28 10*6/uL Normal 4.2-5.4 [facility] Comment on above: Performed By: #### L 100.0100, L500.4050, L501.9520, L3300.0940 #### [facility] [address] [place], [address] RDW SD 51.8 fl High 35.1-43.9 [facility] Comment on above: Performed By: #### L 100.0100, L500.4050, L501.9520, [id number] #### [facility] [address] [place], [address] WBC (Bld) [#/Vol] 6.1 10*3/uL Normal 4.4-11.0 [facility] Comment on above: Performed By: #### L 100.0100, L500.4050, L501.9520, L3300.0940 #### [facility] [address] [place], [address] Comprehensive Metabolic Prof ilon 04-09-2024 Albumin [Mass/Vol] 3.3 g/dL Normal 3.2-5.0 [facility] Comment on above: Performed By: #### L 100.0100, L500.4050, L501.9520, L3300.0940 #### [facility] [address] [place], [address] Albumin/Globulin [Mass ratio] 0.9 {ratio} Normal 0.9-2.4 [facility] Comment on above: Performed By: #### L 100.0100, L500.4050, L501.9520, L3300.0940 #### [facility] [address] [place], [address] ALK P 125 U/L High 45-117 [facility] Comment on above: Performed By: #### L 100.0100, L500.4050, L501.9520, [id number] #### [facility] [address] [place], [address] ALT [Catalytic activity/Vol] 20 U/L Normal 13-56 [facility] Comment on above: Performed By: #### L 100.0100, L500.4050, L501.9520, L3300.0940 #### [facility] [address] [place], [address] AST [Catalytic activity/Vol] 15 U/L Normal 15-37 [facility] Comment on above: Performed By: #### L 100.0100, L500.4050, L501.9520, [id number] #### [facility] [address] [place], [address] Bilirubin [Mass/Vol] 0.50 mg/dL Normal 0.20-1.00 [facility] Comment on above: Result Comment: For patients on eltrombopag therapy, use of Dimension Purmela TBIL is not recommended. Performed By: #### L 100.0100, L500.4050, L501.9520, L3300.0940 #### [facility] [address] [place], [address] BUN/CRE 20.7 RATIO High 10-20 [facility] Comment on above: Performed By: #### L 100.0100, L500.4050, L501.9520, L3300.0940 #### [facility] [address] [place], [address] CA,Total 9.4 mg/dL Normal 8.5-10.1 [facility] Comment on above: Performed By: #### L 100.0100, L500.4050, L501.9520, L3300.0940 #### [facility] [address] [place], [address] Chloride [Moles/Vol] 104 mmol/L Normal 98-107 [facility] Comment on above: Performed By: #### L 100.0100, L500.4050, L501.9520, L3300.0940 #### [facility] [address] [place], [address] CO2 [Moles/Vol] 27.0 mmol/L Normal 21.0-32.0 [facility] Comment on above: Performed By: #### L 100.0100, L500.4050, L501.9520, L3300.0940 #### [facility] [address] [place], [address] Creatinine [Mass/Vol] 0.82 mg/dL Normal 0.55-1.02 [facility] Comment on above: Result Comment: The validity of the calculated GFR GFRAA in patients over 70 years has not been determined. Clinical correlation is essential. Performed By: #### L 100.0100, L500.4050, L501.9520, L3300.0940 #### [facility] [address] [place], [address] EST GFR - AA 88 mL/min Normal >60 [facility] Comment on above: Result Comment: Afri can Indian GFR Calc Performed By: #### L 100.0100, L500.4050, L501.9520, L3300.0940 #### [facility] [address] [place], [address] GAP 7 Normal 5-15 [facility] Comment on above: Performed By: #### L 100.0100, L500.4050, L501.9520, L3300.0940 #### [facility] [address] [place], [address] GFR/1.73 sq M.predicted among non-blacks MDRD (S/P/Bld) [Vol rate/Area] 72 mL/min/{1.73_m2} Normal >60 [facility] Comment on above: Result Comment: Non- GFR Calc Performed By: #### L 100.0100, L500.4050, L501.9520, L3300.0940 #### [facility] [address] [place], [address] Globulin (S) [Mass/Vol] 3.7 g/dL Normal 2.2-4.2 [facility] Comment on above: Performed By: #### L 100.0100, L500.4050, L501.9520, L3300.0940 #### [facility] [address] [place], [address] Glucose [Mass/Vol] 178 mg/dL High 74-106 [facility] Comment on above: Result Comment: Fast ing Glucose result greater than or equal to 126 mg/dL suggests DIABETES MELLITUS per A.D.A. criteria. Performed By: #### L 100.0100, L500.4050, L501.9520, L3300.0940 #### [facility] [address] [place], [address] Potassium [Moles/Vol] 4.8 mmol/L Normal 3.5-5.1 [facility] Comment on above: Performed By: #### L 100.0100, L500.4050, L501.9520, L3300.0940 #### [facility] [address] [place], [address] Sodium [Moles/Vol] 138 mmol/L Normal 136-145 [facility] Comment on above: Performed By: #### L 100.0100, L500.4050, L501.9520, L3300.0940 #### [facility] [address] [place], [address] T PROT 7.0 g/dL Normal 6.4-8.2 [facility] Comment on above: Performed By: #### L 100.0100, L500.4050, L501.9520, L3300.0940 #### [facility] [address] [place], [address] Urea nitrogen [Mass/Vol] 17 mg/dL Normal 7-18 [facility] Comment on above: Performed By: #### L 100.0100, L500.4050, L501.9520, L3300.0940 #### [facility] [address] [place], [address] Thyroid Stim Hormone (TSH)on 04-09-2024 TSH 1.580 uIU/mL Normal 0.358-3.740 [facility] Comment on above: Performed By: #### L 100.0100, L500.4050, L501.9520, L3300.0940 #### [facility] [address] [place], [address] Culture, Anaerobic Any Sourc rubina 03-11-2024 CUAN ONLY AEROBIC SWAB RECEIVED FOR CULTURE. GROWTH OF ANAEROBES MAY BE INHIBITED. GREAT RIGHT TOE No growth in 5 days. Normal [facility] Comment on above: Performed By: #### L 100.0100, L501.9985, L502.0250, L500.4050, L500.4100, L501.9520, L506.1001 #### [facility] [address] [place], [address] Wound Cultureon 03-09-2024 WC ONLY AEROBIC SWAB RECEIVED FOR CULTURE. GROWTH OF ANAEROBES MAY BE INHIBITED. GREAT RIGHT TOE No growth aerobically. Normal [facility] Comment on above: Performed By: #### L 100.0100, L501.9985, L502.0250, L500.4050, L500.4100, L501.9520, L506.1001 #### [facility] [address] [place], [address] Gram Stainon 03-06-2024 GS ONLY AEROBIC SWAB RECEIVED FOR CULTURE. GROWTH OF ANAEROBES MAY BE INHIBITED. GREAT RIGHT TOE Gram Stain No organisms seen No cells seen Normal [facility] Comment on above: Performed By: #### L 100.0100, L501.9985, L502.0250, L500.4050, L500.4100, L501.9520, L506.1001 #### [facility] [address] [place], [address] Absolute lymphocyte countOrd ered By: Ankush Rios on 10-04-2023 Lymphocytes Auto (Unsp spec) [#/Vol] 1.44 10*3/uL 0.83-4.51 [facility] Automated lymphocyte count a s percentage of total leukocytesOrdered By: Ankush Rios on 10-04-2023 Lymphocytes/100 WBC Auto (Unsp spec) 24.5 % 19-41 [facility] Basophil percentageOrdered B y: Ankush Rios on 10-04-2023 Basophils/100 WBC (Bld) 0.5 % 0-1 [facility] Bilirubin [Mass/Vol] 0.90 mg/dL 0.20-1.00 [facility] Comment on above: For patients on eltr ombopag therapy, use of Dimension Purmela TBIL is not recommended. Chloride [Moles/Vol] 106 mmol/L 98-107 [facility] Cholesterol [Mass/Vol] 128 mg/dL <200 [facility] Comment on above: <200 mg/dL Desirable 200-240 mg/dL Borderline >240 mg/dL High Risk Eosinophils/100 WBC (Bld) 1.2 % 0-5 [facility] Glucose [Mass/Vol] 127 mg/dL 74-106 [facility] Comment on above: Fasting Glucose resu lt greater than or equal to 126 mg/dL suggests DIABETES MELLITUS per A.D.A. criteria. Hemoglobin (Bld) [Mass/Vol] 12.8 g/dL 12.0-15.0 [facility] Monocytes/100 WBC (Bld) 7.1 % 0-10 [facility] Neutrophils (Bld) [#/Vol] 3.9 10*3/uL 2.0-7.7 [facility] Neutrophils/100 WBC (Bld) 66.2 % 47-70 [facility] Potassium [Moles/Vol] 4.2 mmol/L 3.5-5.1 [facility] Protein [Mass/Vol] 6.8 g/dL 6.4-8.2 [facility] Sodium [Moles/Vol] 138 mmol/L 136-145 [facility] Triglyceride [Mass/Vol] 108 mg/dL <199 [facility] Comment on above: The drugs N-Acetylcy steine and Metamizole may falsely depress this assay.Serum Triglycerides Reference Interval Normal <150 mg/dL Borderline high 150 - 199 mg/dL High 200 - 499 mg/dL Very High > or = 500 mg/dL WBC (Bld) [#/Vol] 5.9 10*3/uL 4.4-11.0 [facility] Determination of erythrocyte mean corpuscular volume (MCV)Ordered By: Ankush Rios on 10-04-2023 MCV (RBC) [Entitic vol] 99.8 fL 81-99 [facility] Erythrocyte distribution wid th ratioOrdered By: Ankush Gabriel on 10-04-2023 Erythrocyte distribution width (RBC) [Ratio] 13.3 % 11.6-14.6 [facility] Erythrocyte distribution wid th standard deviationOrdered By: [facility] on 10-04-2023 Erythrocyte distribution width (RBC) [Entitic vol] 48.8 fL 35.1-43.9 [facility] Hematocrit Auto (Bld) [Volum e fraction]Ordered By: [facility] on 10-04-2023 Hematocrit (Bld) [Volume fraction] 41.4 % 37-47 [facility] Immature granulocytes/100 WB C Auto (Bld)Ordered By: [facility] on 10-04-2023 Immature granulocytes/100 WBC (Bld) 0.500 % 0.0-0.9 [facility] Comment on above: IG% - Immature Granu locytes (promyelocytes, myelocytes and metamyelocytes) > 1% indicates that a LEFT SHIFT is Present. Laboratory - Chemistry and C hemistry - challengeOrdered By: Ankush Rios on 10-04-2023 Albumin/Globulin [Mass ratio] 0.9 {ratio} 0.9-2.4 [facility] ALP [Catalytic activity/Vol] 106 U/L 45-117 [facility] ALT [Catalytic activity/Vol] 18 U/L 13-56 [facility] Cholesterol in HDL [Mass/Vol] 66 mg/dL >40 [facility] Comment on above: The drugs N-Acetylcy steine and Metamizole may falsely depress this assay. Reference Range HDL <40 mg/dL Low HDL Cholesterol HDL >or= 60 mg/dL High HDL Cholesterol Cholesterol in LDL [Mass/Vol] 40 mg/dL 0-130 [facility] CO2 [Moles/Vol] 28.0 mmol/L 21.0-32.0 [facility] Globulin (S) [Mass/Vol] 3.6 g/dL 2.2-4.2 [facility] Urea nitrogen/Creatinine [Mass ratio] 25.3 mg/mg 10-20 [facility] Laboratory - Hematology and Cell countsOrdered By: Ankush Rios on 10-04-2023 MCH (RBC) [Entitic mass] 30.8 pg 27.0-32.0 [facility] MCHC (RBC) [Mass/Vol] 30.9 g/dL 32-36 [facility] Nucleated RBC/100 WBC (Bld) [Ratio] 0 % 0-5 [facility] Platelet mean volume (Bld) [Entitic vol] 10.1 fL 6.2-12.0 [facility] Platelets (Bld) [#/Vol] 244 10*3/uL 150-450 [facility] No Panel InformationOrdered By: Ankush Rios on 10-04-2023 Estimated GFR (MDRD) Amer 91 mL/min >60 [facility] Comment on above: GFR Calc Estimated GFR (MDRD) Non-Af Amer 76 mL/min >60 [facility] Comment on above: Non- GFR Calc Vitamin D 25-Hydroxy 47.8 ng/mL [facility] Comment on above: Vitamin D 25(OH) Sta tus Range Deficiency <20 ng/mL (50nmol/L) Insufficiency 20 - 30 ng/mL (50 - 75 nmol/L) Sufficiency 30 - 100 ng/mL (75 - 250 nmol/L) Toxicity >100 ng/mL (>250 nmol/L) VLDL Cholesterol 22 mg/dL 5-40 [facility] RBC Auto (Bld) [#/Vol]Ordere d By: Ankush Rios on 10-04-2023 RBC (Bld) [#/Vol] 4.15 10*6/uL 4.2-5.4 [facility] Serum or plasma calcium don urement (mass/volume)Ordered By: Ankush Rios on 10-04-2023 Calcium [Mass/Vol] 9.0 mg/dL 8.5-10.1 [facility] Serum or plasma creatinine m easurement (mass/volume)Ordered By: Ankush Rios on 10-04-2023 Creatinine [Mass/Vol] 0.79 mg/dL 0.55-1.02 [facility] Comment on above: The validity of the calculated GFR & GFRAA in patients over 70 years has not been determined. Clinical correlation is essential. Serum or plasma thyroid stim ulating hormone (TSH) measurement (units/volume)Ordered By: Ankush Rios on 10-04-2023 TSH Qn 2.09 uIU/mL 0.358-3.74 [facility] Serum or plasma urea nitroge n measurement (mass/volume)Ordered By: Ankush Rios on 10-04-2023 Urea nitrogen [Mass/Vol] 20 mg/dL 7-18 [facility] Thin prep Papanicolaou smear with manual screeningOrdered By: Ankush Rios on 10-04-2023 Thin prep Papanicolaou smear with manual screening 3.2 g/dL 3.2-5.0 [facility] Thin prep Papanicolaou smear with manual screening 13 U/L 15-37 [facility] Thin prep Papanicolaou smear with manual screening 4 5-15 [facility] Whole blood hemoglobin A1c/t otal hemoglobin ratio (mass fraction)Ordered By: Ankush Rios on 10-04-2023 HbA1c (Bld) [Mass fraction] 6.6 % 3.8-5.6 [facility] Comment on above: Normal < 5.7 % Predi abetic 5.7 - 6.4 % Diabetic >or= 6.5 % Please note range changes. Absolute lymphocyte countOrd ered By: Dr. Rios on 12-06-2022 Lymphocytes Auto (Unsp spec) [#/Vol] 1.48 10*3/uL 0.83-4.51 [facility] Basophil percentageOrdered B y: Dr. Rios on 12-06-2022 Basophils/100 WBC (Bld) 0.5 % 0-1 [facility] Bilirubin [Mass/Vol] 0.60 mg/dL 0.20-1.00 [facility] Comment on above: For patients on eltr ombopag therapy, use of Dimension Purmela TBIL is not recommended. Chloride [Moles/Vol] 106 mmol/L 98-107 [facility] Cholesterol [Mass/Vol] 181 mg/dL <200 [facility] Comment on above: <200 mg/dL Desirable 200-240 mg/dL Borderline >240 mg/dL High Risk Eosinophils/100 WBC (Bld) 1.1 % 0-5 [facility] Glucose [Mass/Vol] 117 mg/dL 74-106 [facility] Comment on above: Fasting Glucose resu lt from 100 to 125 mg/dL suggests IMPAIRED HOMEOSTASIS per A.D.A. criteria. Neutrophils (Bld) [#/Vol] 4.0 10*3/uL 2.0-7.7 [facility] Neutrophils/100 WBC (Bld) 65.5 % 47-70 [facility] Potassium [Moles/Vol] 4.2 mmol/L 3.5-5.1 [facility] Protein [Mass/Vol] 7.1 g/dL 6.4-8.2 [facility] Sodium [Moles/Vol] 137 mmol/L 136-145 [facility] Triglyceride [Mass/Vol] 111 mg/dL <199 [facility] Comment on above: The drugs N-Acetylcy steine and Metamizole may falsely depress this assay.Serum Triglycerides Reference Interval Normal <150 mg/dL Borderline high 150 - 199 mg/dL High 200 - 499 mg/dL Very High > or = 500 mg/dL WBC (Bld) [#/Vol] 6.1 10*3/uL 4.4-11.0 [facility] Blood erythrocytes count (nu mber/volume)Ordered By: Dr. Rios on 12-06-2022 RBC (Bld) [#/Vol] 4.38 10*6/uL 4.2-5.4 [facility] Blood hemoglobin measurement (mass/volume)Ordered By: Dr. Rios on 12-06-2022 Hemoglobin (Bld) [Mass/Vol] 13.6 g/dL 12.0-15.0 [facility] Blood lymphocytes/100 leukoc ytesOrdered By: Dr. Rios on 12-06-2022 Lymphocytes/100 WBC (Bld) 24.1 % 19-41 [facility] Blood monocytes/100 leukocyt esOrdered By: Dr. Rios on 12-06-2022 Monocytes/100 WBC (Bld) 8.0 % 0-10 [facility] Blood platelet mean volumeOr dered By: Dr. Rios on 12-06-2022 Platelet mean volume (Bld) [Entitic vol] 10.2 fL 6.2-12.0 [facility] Determination of erythrocyte mean corpuscular volume (MCV)Ordered By: Dr. Rios on 12-06-2022 MCV (RBC) [Entitic vol] 99.1 fL 81-99 [facility] Hematocrit Auto (Bld) [Volum e fraction]Ordered By: Dr. Rios on 12-06-2022 Hematocrit (Bld) [Volume fraction] 43.4 % 37-47 [facility] Laboratory - Chemistry and C hemistry - challengeOrdered By: Dr. Rios on 12-06-2022 ALP [Catalytic activity/Vol] 94 U/L 45-117 [facility] ALT [Catalytic activity/Vol] 16 U/L 13-56 [facility] CO2 [Moles/Vol] 26.0 mmol/L 21.0-32.0 [facility] Globulin (S) [Mass/Vol] 4.2 g/dL 2.2-4.2 [facility] Urea nitrogen/Creatinine [Mass ratio] 27.1 mg/mg 10-20 [facility] Laboratory - Hematology and Cell countsOrdered By: Dr. Rios on 12-06-2022 Erythrocyte distribution width (RBC) [Entitic vol] 48.2 fL 35.1-43.9 [facility] Erythrocyte distribution width (RBC) [Ratio] 13.2 % 11.6-14.6 [facility] Immature granulocytes/100 WBC (Bld) 0.800 % 0.0-0.9 [facility] Comment on above: IG% - Immature Granu locytes (promyelocytes, myelocytes and metamyelocytes) > 1% indicates that a LEFT SHIFT is Present. MCH (RBC) [Entitic mass] 31.1 pg 27.0-32.0 [facility] Nucleated RBC/100 WBC (Bld) [Ratio] 0 % 0-5 [facility] MCHC Auto (RBC) [Mass/Vol]Or dered By: Dr. Rios on 12-06-2022 MCHC (RBC) [Mass/Vol] 31.3 g/dL 32-36 [facility] No Panel InformationOrdered By: Dr. Rios on 12-06-2022 Estimated GFR (MDRD) Amer 65 mL/min >60 [facility] Comment on above: GFR Calc Estimated GFR (MDRD) Non-Af Amer 54 mL/min >60 [facility] Comment on above: Non- GFR Calc Thyroid Stimulating Hormone (TSH) 1.58 uIU/mL 0.358-3.74 [facility] Vitamin D 25-Hydroxy > 150.0 ng/mL 29.95-100.01 [facility] Comment on above: Vitamin D 25(OH) Sta tus Range Deficiency <20 ng/mL (50nmol/L) Insufficiency 20 - 30 ng/mL (50 - 75 nmol/L) Sufficiency 30 - 100 ng/mL (75 - 250 nmol/L) Toxicity >100 ng/mL (>250 nmol/L)Evidence suggests that patients undergoing fluorescein dye angiography can retain small amounts of fluorescein in the body for up to 48 to 72 hours post-treatment. In the cases of patients with renal insufficiency, retention could be much longer. Samples containing fluorescein can produce falsely elevated values when tested with the [employer]ia Centaur Vitamin D assay. With fluorescein interference, observed Vitamin D values can be as high as >150 ng/mL (>375 nmol/L). Samples should be resubmitted post fluorescein clearance to ensure there is no interference with Vitamin D test results. Platelets bldOrdered By: Dr. Rios on 12-06-2022 Platelets (Bld) [#/Vol] 250 10*3/uL 150-450 [facility] Serum or plasma albumin don urement (mass/volume)Ordered By: Dr. Rios on 12-06-2022 Albumin [Mass/Vol] 2.9 g/dL 3.2-5.0 [facility] Serum or plasma albumin/glob ulin mass ratioOrdered By: Dr. Rios on 12-06-2022 Albumin/Globulin [Mass ratio] 0.7 {ratio} 0.9-2.4 [facility] Serum or plasma calcium don urement (mass/volume)Ordered By: Dr. Rios on 12-06-2022 Calcium [Mass/Vol] 9.5 mg/dL 8.5-10.1 [facility] Serum or plasma cholesterol in HDL measurement (mass/volume)Ordered By: Dr. Rios on 12-06-2022 Cholesterol in HDL [Mass/Vol] 59 mg/dL >40 [facility] Comment on above: The drugs N-Acetylcy steine and Metamizole may falsely depress this assay. Reference Range HDL <40 mg/dL Low HDL Cholesterol HDL >or= 60 mg/dL High HDL Cholesterol Serum or plasma cholesterol in VLDL measurement (mass/volume)Ordered By: Dr. Rios on 12-06-2022 Cholesterol in VLDL [Mass/Vol] 22 mg/dL 5-40 [facility] Serum or plasma creatinine m easurement (mass/volume)Ordered By: Dr. Rios on 12-06-2022 Creatinine [Mass/Vol] 1.07 mg/dL 0.55-1.02 [facility] Comment on above: The validity of the calculated GFR & GFRAA in patients over 70 years has not been determined. Clinical correlation is essential. Serum or plasma low density lipoprotein (LDL) cholesterol measurement (mass/volume)Ordered By: Dr. Rios on 12-06-2022 Cholesterol in LDL [Mass/Vol] 100 mg/dL 0-130 [facility] Serum or plasma urea nitroge n measurement (mass/volume)Ordered By: Dr. Rios on 12-06-2022 Urea nitrogen [Mass/Vol] 29 mg/dL 7-18 [facility] Thin prep Papanicolaou smear with manual screeningOrdered By: Dr. Rios on 12-06-2022 Thin prep Papanicolaou smear with manual screening 13 U/L 15-37 [facility] Thin prep Papanicolaou smear with manual screening 5 5-15 [facility] Absolute lymphocyte countOrd ered By: Dr. Rios on 07-13-2022 Lymphocytes Auto (Unsp spec) [#/Vol] 1.18 10*3/uL 0.83-4.51 [facility] Basophil percentageOrdered B y: Dr. Rios on 07-13-2022 Basophils/100 WBC (Bld) 0.5 % 0-1 [facility] Bilirubin [Mass/Vol] 0.60 mg/dL 0.20-1.00 [facility] Comment on above: For patients on eltr ombopag therapy, use of Dimension Purmela TBIL is not recommended. Chloride [Moles/Vol] 107 mmol/L 98-107 [facility] Cholesterol [Mass/Vol] 165 mg/dL <200 [facility] Comment on above: <200 mg/dL Desirable 200-240 mg/dL Borderline >240 mg/dL High Risk Eosinophils/100 WBC (Bld) 1.2 % 0-5 [facility] Glucose [Mass/Vol] 116 mg/dL 74-106 [facility] Comment on above: Fasting Glucose resu lt from 100 to 125 mg/dL suggests IMPAIRED HOMEOSTASIS per A.D.A. criteria. Neutrophils (Bld) [#/Vol] 4.0 10*3/uL 2.0-7.7 [facility] Neutrophils/100 WBC (Bld) 68.9 % 47-70 [facility] Potassium [Moles/Vol] 4.1 mmol/L 3.5-5.1 [facility] Protein [Mass/Vol] 7.2 g/dL 6.4-8.2 [facility] Sodium [Moles/Vol] 139 mmol/L 136-145 [facility] Triglyceride [Mass/Vol] 89 mg/dL <199 [facility] Comment on above: The drugs N-Acetylcy steine and Metamizole may falsely depress this assay.Serum Triglycerides Reference Interval Normal <150 mg/dL Borderline high 150 - 199 mg/dL High 200 - 499 mg/dL Very High > or = 500 mg/dL WBC (Bld) [#/Vol] 5.8 10*3/uL 4.4-11.0 [facility] Blood erythrocytes count (nu mber/volume)Ordered By: Dr. Rios on 07-13-2022 RBC (Bld) [#/Vol] 4.36 10*6/uL 4.2-5.4 [facility] Blood hemoglobin measurement (mass/volume)Ordered By: Dr. Rios on 07-13-2022 Hemoglobin (Bld) [Mass/Vol] 14.0 g/dL 12.0-15.0 [facility] Blood lymphocytes/100 leukoc ytesOrdered By: Dr. Rios on 07-13-2022 Lymphocytes/100 WBC (Bld) 20.3 % 19-41 [facility] Blood monocytes/100 leukocyt esOrdered By: Dr. Rios on 07-13-2022 Monocytes/100 WBC (Bld) 8.2 % 0-10 [facility] Blood platelet mean volumeOr dered By: Dr. Rios on 07-13-2022 Platelet mean volume (Bld) [Entitic vol] 10.7 fL 6.2-12.0 [facility] Determination of erythrocyte mean corpuscular volume (MCV)Ordered By: Dr. Rios on 07-13-2022 MCV (RBC) [Entitic vol] 101.4 fL 81-99 [facility] Hematocrit Auto (Bld) [Volum e fraction]Ordered By: Dr. Rios on 07-13-2022 Hematocrit (Bld) [Volume fraction] 44.2 % 37-47 [facility] Laboratory - Chemistry and C hemistry - challengeOrdered By: Dr. Rios on 07-13-2022 ALP [Catalytic activity/Vol] 98 U/L 45-117 [facility] ALT [Catalytic activity/Vol] 28 U/L 13-56 [facility] CO2 [Moles/Vol] 26.0 mmol/L 21.0-32.0 [facility] Globulin (S) [Mass/Vol] 4.1 g/dL 2.2-4.2 [facility] Urea nitrogen/Creatinine [Mass ratio] 26.3 mg/mg 10-20 [facility] Laboratory - Hematology and Cell countsOrdered By: Dr. Rios on 07-13-2022 Erythrocyte distribution width (RBC) [Entitic vol] 51.8 fL 35.1-43.9 [facility] Erythrocyte distribution width (RBC) [Ratio] 13.5 % 11.6-14.6 [facility] Immature granulocytes/100 WBC (Bld) 0.900 % 0.0-0.9 [facility] Comment on above: IG% - Immature Granu locytes (promyelocytes, myelocytes and metamyelocytes) > 1% indicates that a LEFT SHIFT is Present. MCH (RBC) [Entitic mass] 32.1 pg 27.0-32.0 [facility] Nucleated RBC/100 WBC (Bld) [Ratio] 0 % 0-5 [facility] MCHC Auto (RBC) [Mass/Vol]Or dered By: Dr. Rios on 07-13-2022 MCHC (RBC) [Mass/Vol] 31.7 g/dL 32-36 [facility] No Panel InformationOrdered By: Dr. Rios on 07-13-2022 Estimated GFR (MDRD) Amer 86 mL/min >60 [facility] Comment on above: GFR Calc Estimated GFR (MDRD) Non-Af Amer 71 mL/min >60 [facility] Comment on above: Non- GFR Calc Thyroid Stimulating Hormone (TSH) 2.23 uIU/mL 0.358-3.74 [facility] Vitamin D 25-Hydroxy 30.7 ng/mL [facility] Comment on above: Vitamin D 25(OH) Sta tus Range Deficiency <20 ng/mL (50nmol/L) Insufficiency 20 - 30 ng/mL (50 - 75 nmol/L) Sufficiency 30 - 100 ng/mL (75 - 250 nmol/L) Toxicity >100 ng/mL (>250 nmol/L) Platelets bldOrdered By: Dr. Rios on 07-13-2022 Platelets (Bld) [#/Vol] 217 10*3/uL 150-450 [facility] Serum or plasma albumin don urement (mass/volume)Ordered By: Dr. Rios on 07-13-2022 Albumin [Mass/Vol] 3.1 g/dL 3.2-5.0 [facility] Serum or plasma albumin/glob ulin mass ratioOrdered By: Dr. Rios on 07-13-2022 Albumin/Globulin [Mass ratio] 0.8 {ratio} 0.9-2.4 [facility] Serum or plasma calcium don urement (mass/volume)Ordered By: Dr. Rios on 07-13-2022 Calcium [Mass/Vol] 9.0 mg/dL 8.5-10.1 [facility] Serum or plasma cholesterol in HDL measurement (mass/volume)Ordered By: Dr. Rios on 07-13-2022 Cholesterol in HDL [Mass/Vol] 73 mg/dL >40 [facility] Comment on above: The drugs N-Acetylcy steine and Metamizole may falsely depress this assay. Reference Range HDL <40 mg/dL Low HDL Cholesterol HDL >or= 60 mg/dL High HDL Cholesterol Serum or plasma cholesterol in VLDL measurement (mass/volume)Ordered By: Dr. Rios on 07-13-2022 Cholesterol in VLDL [Mass/Vol] 18 mg/dL 5-40 [facility] Serum or plasma creatinine m easurement (mass/volume)Ordered By: Dr. Rios on 07-13-2022 Creatinine [Mass/Vol] 0.84 mg/dL 0.55-1.02 [facility] Comment on above: The validity of the calculated GFR & GFRAA in patients over 70 years has not been determined. Clinical correlation is essential. Serum or plasma low density lipoprotein (LDL) cholesterol measurement (mass/volume)Ordered By: Dr. Rios on 07-13-2022 Cholesterol in LDL [Mass/Vol] 74 mg/dL 0-130 [facility] Serum or plasma urea nitroge n measurement (mass/volume)Ordered By: Dr. Rios on 07-13-2022 Urea nitrogen [Mass/Vol] 22 mg/dL 7-18 [facility] Thin prep Papanicolaou smear with manual screeningOrdered By: Dr. Rios on 07-13-2022 Thin prep Papanicolaou smear with manual screening 18 U/L 15-37 [facility] Thin prep Papanicolaou smear with manual screening 6 5-15 [facility] Basophil percentageon 2021 Basophil percentage 3.4 mg/dL 2.5-4.9 [facility] Work Phone: Chloride [Moles/Vol] 108 mmol/L 98-107 [facility] Work Phone: Glucose [Mass/Vol] 137 mg/dL 74-106 [facility] Work Phone: Comment on above: Fasting Glucose resu lt greater than or equal to 126 mg/dL suggests DIABETES MELLITUS per A.D.A. criteria. Potassium [Moles/Vol] 4.3 mmol/L 3.5-5.1 [facility] Work Phone: Sodium [Moles/Vol] 138 mmol/L 136-145 [facility] Work Phone: Laboratory - Chemistry and C hemistry - challengeon 01-02-2022 CO2 [Moles/Vol] 22.0 mmol/L 21.0-32.0 [facility] Work Phone: Urea nitrogen/Creatinine [Mass ratio] 34.2 mg/mg 10-20 [facility] Work Phone: No Panel Informationon 01-02 Estimated GFR (MDRD) Amer 76 mL/min >60 [facility] Work Phone: Comment on above: GFR Calc Estimated GFR (MDRD) Non-Af Amer 63 mL/min >60 [facility] Work Phone: Comment on above: Non- GFR Calc Serum or plasma albumin don urement (mass/volume)on 01-02-2022 Albumin [Mass/Vol] 3.0 g/dL 3.2-5.0 [facility] Work Phone: Serum or plasma calcium don urement (mass/volume)on 01-02-2022 Calcium [Mass/Vol] 9.0 mg/dL 8.5-10.1 [facility] Work Phone: Serum or plasma creatinine m easurement (mass/volume)on 01-02-2022 Creatinine [Mass/Vol] 0.94 mg/dL 0.55-1.02 [facility] Work Phone: Comment on above: The validity of the calculated GFR & GFRAA in patients over 70 years has not been determined. Clinical correlation is essential. Serum or plasma urea nitroge n measurement (mass/volume)on 01-02-2022 Urea nitrogen [Mass/Vol] 32 mg/dL 7-18 [facility] Work Phone: [phone] Absolute lymphocyte counton 11-30-2021 Lymphocytes Auto (Unsp spec) [#/Vol] 1.61 10*3/uL 0.83-4.51 [facility] Work Phone: [phone] Basophil percentageon 2021 Basophils/100 WBC (Bld) 0.5 % 0-1 [facility] Work Phone: [phone] Bilirubin [Mass/Vol] 0.40 mg/dL 0.20-1.00 [facility] Work Phone: Comment on above: For patients on eltr ombopag therapy, use of Dimension Purmela TBIL is not recommended. Chloride [Moles/Vol] 107 mmol/L 98-107 [facility] Work Phone: Cholesterol [Mass/Vol] 173 mg/dL <200 [facility] Work Phone: Comment on above: <200 mg/dL Desirable 200-240 mg/dL Borderline >240 mg/dL High Risk Eosinophils/100 WBC (Bld) 0.9 % 0-5 [facility] Work Phone: Glucose [Mass/Vol] 92 mg/dL 74-106 [facility] Work Phone: Neutrophils (Bld) [#/Vol] 4.0 10*3/uL 2.0-7.7 [facility] Work Phone: Neutrophils/100 WBC (Bld) 63.2 % 47-70 [facility] Work Phone: Potassium [Moles/Vol] 4.4 mmol/L 3.5-5.1 [facility] Work Phone: [phone] Protein [Mass/Vol] 6.9 g/dL 6.4-8.2 [facility] Work Phone: Sodium [Moles/Vol] 140 mmol/L 136-145 [facility] Work Phone: [phone] Triglyceride [Mass/Vol] 105 mg/dL <199 [facility] Work Phone: [phone] Comment on above: The drugs N-Acetylcy steine and Metamizole may falsely depress this assay.Serum Triglycerides Reference Interval Normal <150 mg/dL Borderline high 150 - 199 mg/dL High 200 - 499 mg/dL Very High > or = 500 mg/dL WBC (Bld) [#/Vol] 6.4 10*3/uL 4.4-11.0 [facility] Work Phone: [phone] Blood erythrocytes count (nu mber/volume)on 11-30-2021 RBC (Bld) [#/Vol] 4.19 10*6/uL 4.2-5.4 [facility] Work Phone: [phone] Blood hemoglobin measurement (mass/volume)on 11-30-2021 Hemoglobin (Bld) [Mass/Vol] 13.3 g/dL 12.0-15.0 [facility] Work Phone: Blood lymphocytes/100 leukoc yteson 11-30-2021 Lymphocytes/100 WBC (Bld) 25.3 % 19-41 [facility] Work Phone: Blood monocytes/100 leukocyt eson 11-30-2021 Monocytes/100 WBC (Bld) 9.6 % 0-10 [facility] Work Phone: Blood platelet mean volumeon 11-30-2021 Platelet mean volume (Bld) [Entitic vol] 11.0 fL 6.2-12.0 [facility] Work Phone: Determination of erythrocyte mean corpuscular volume (MCV)on 11-30-2021 MCV (RBC) [Entitic vol] 100.5 fL 81-99 [facility] Work Phone: Hematocrit Auto (Bld) [Volum e fraction]on 11-30-2021 Hematocrit (Bld) [Volume fraction] 42.1 % 37-47 [facility] Work Phone: Laboratory - Chemistry and C hemistry - challengeon 11-30-2021 ALP [Catalytic activity/Vol] 89 U/L 45-117 [facility] Work Phone: ALT [Catalytic activity/Vol] 30 U/L 13-56 [facility] Work Phone: [phone] CO2 [Moles/Vol] 27.0 mmol/L 21.0-32.0 [facility] Work Phone: Globulin (S) [Mass/Vol] 3.8 g/dL 2.2-4.2 [facility] Work Phone: Urea nitrogen/Creatinine [Mass ratio] 23.0 mg/mg 10-20 [facility] Work Phone: Laboratory - Hematology and Cell countson 11-30-2021 Erythrocyte distribution width (RBC) [Entitic vol] 48.9 fL 35.1-43.9 [facility] Work Phone: Erythrocyte distribution width (RBC) [Ratio] 13.2 % 11.6-14.6 [facility] Work Phone: Immature granulocytes/100 WBC (Bld) 0.500 % 0.0-0.9 [facility] Work Phone: [phone] Comment on above: IG% - Immature Granu locytes (promyelocytes, myelocytes and metamyelocytes) > 1% indicates that a LEFT SHIFT is Present. MCH (RBC) [Entitic mass] 31.7 pg 27.0-32.0 [facility] Work Phone: Nucleated RBC/100 WBC (Bld) [Ratio] 0 % 0-5 [facility] Work Phone: [phone] MCHC Auto (RBC) [Mass/Vol]on 11-30-2021 MCHC (RBC) [Mass/Vol] 31.6 g/dL 32-36 [facility] Work Phone: No Panel Informationon 11-30 Estimated GFR (MDRD) Amer 70 mL/min >60 [facility] Work Phone: Comment on above: GFR Calc Estimated GFR (MDRD) Non-Af Amer 58 mL/min >60 [facility] Work Phone: Comment on above: Non- GFR Calc Thyroid Stimulating Hormone (TSH) 1.57 uIU/mL 0.358-3.74 [facility] Work Phone: [phone] Vitamin D 25-Hydroxy 45.1 ng/mL [facility] Work Phone: [phone] Comment on above: Vitamin D 25(OH) Sta tus Range Deficiency <20 ng/mL (50nmol/L) Insufficiency 20 - 30 ng/mL (50 - 75 nmol/L) Sufficiency 30 - 100 ng/mL (75 - 250 nmol/L) Toxicity >100 ng/mL (>250 nmol/L) Platelets bldon 11-30-2021 Platelets (Bld) [#/Vol] 203 10*3/uL 150-450 [facility] Work Phone: [phone] Serum or plasma albumin don urement (mass/volume)on 11-30-2021 Albumin [Mass/Vol] 3.1 g/dL 3.2-5.0 [facility] Work Phone: Serum or plasma albumin/glob ulin mass ratioon 11-30-2021 Albumin/Globulin [Mass ratio] 0.8 {ratio} 0.9-2.4 [facility] Work Phone: Serum or plasma calcium don urement (mass/volume)on 11-30-2021 Calcium [Mass/Vol] 8.9 mg/dL 8.5-10.1 [facility] Work Phone: Serum or plasma cholesterol in HDL measurement (mass/volume)on 11-30-2021 Cholesterol in HDL [Mass/Vol] 58 mg/dL >40 [facility] Work Phone: Comment on above: The drugs N-Acetylcy steine and Metamizole may falsely depress this assay. Reference Range HDL <40 mg/dL Low HDL Cholesterol HDL >or= 60 mg/dL High HDL Cholesterol Serum or plasma cholesterol in VLDL measurement (mass/volume)on 11-30-2021 Cholesterol in VLDL [Mass/Vol] 21 mg/dL 5-40 [facility] Work Phone: Serum or plasma creatinine m easurement (mass/volume)on 11-30-2021 Creatinine [Mass/Vol] 1.00 mg/dL 0.55-1.02 [facility] Work Phone: Comment on above: The validity of the calculated GFR & GFRAA in patients over 70 years has not been determined. Clinical correlation is essential. Serum or plasma low density lipoprotein (LDL) cholesterol measurement (mass/volume)on 11-30-2021 Cholesterol in LDL [Mass/Vol] 94 mg/dL 0-130 [facility] Work Phone: Serum or plasma urea nitroge n measurement (mass/volume)on 11-30-2021 Urea nitrogen [Mass/Vol] 23 mg/dL 7-18 [facility] Work Phone: Thin prep Papanicolaou smear with manual screeningon 11-30-2021 Thin prep Papanicolaou smear with manual screening 25 U/L 15-37 [facility] Work Phone: Thin prep Papanicolaou smear with manual screening 6 5-15 [facility] Work Phone: Absolute lymphocyte counton 09-23-2021 Lymphocytes Auto (Unsp spec) [#/Vol] 1.44 10*3/uL 0.83-4.51 [facility] Work Phone: Basophil percentageon 2021 Basophils/100 WBC (Bld) 0.6 % 0-1 [facility] Work Phone: Bilirubin [Mass/Vol] 0.60 mg/dL 0.20-1.00 [facility] Work Phone: Comment on above: For patients on eltr ombopag therapy, use of Dimension Purmela TBIL is not recommended. Chloride [Moles/Vol] 105 mmol/L 98-107 [facility] Work Phone: Cholesterol [Mass/Vol] 120 mg/dL <200 [facility] Work Phone: Comment on above: <200 mg/dL Desirable 200-240 mg/dL Borderline >240 mg/dL High Risk Eosinophils/100 WBC (Bld) 1.0 % 0-5 [facility] Work Phone: [phone] Glucose [Mass/Vol] 183 mg/dL 74-106 [facility] Work Phone: Comment on above: Fasting Glucose resu lt greater than or equal to 126 mg/dL suggests DIABETES MELLITUS per A.D.A. criteria. Neutrophils (Bld) [#/Vol] 4.7 10*3/uL 2.0-7.7 [facility] Work Phone: Neutrophils/100 WBC (Bld) 68.4 % 47-70 [facility] Work Phone: Potassium [Moles/Vol] 4.7 mmol/L 3.5-5.1 [facility] Work Phone: [phone] Protein [Mass/Vol] 7.1 g/dL 6.4-8.2 [facility] Work Phone: Sodium [Moles/Vol] 135 mmol/L 136-145 [facility] Work Phone: [phone] Triglyceride [Mass/Vol] 94 mg/dL <199 [facility] Work Phone: [phone] Comment on above: The drugs N-Acetylcy steine and Metamizole may falsely depress this assay.Serum Triglycerides Reference Interval Normal <150 mg/dL Borderline high 150 - 199 mg/dL High 200 - 499 mg/dL Very High > or = 500 mg/dL WBC (Bld) [#/Vol] 6.8 10*3/uL 4.4-11.0 [facility] Work Phone: Blood erythrocytes count (nu mber/volume)on 09-23-2021 RBC (Bld) [#/Vol] 4.50 10*6/uL 4.2-5.4 [facility] Work Phone: [phone] Blood hemoglobin measurement (mass/volume)on 09-23-2021 Hemoglobin (Bld) [Mass/Vol] 14.3 g/dL 12.0-15.0 [facility] Work Phone: Blood lymphocytes/100 leukoc yteson 09-23-2021 Lymphocytes/100 WBC (Bld) 21.1 % 19-41 [facility] Work Phone: Blood monocytes/100 leukocyt eson 09-23-2021 Monocytes/100 WBC (Bld) 8.2 % 0-10 [facility] Work Phone: Blood platelet mean volumeon 09-23-2021 Platelet mean volume (Bld) [Entitic vol] 10.5 fL 6.2-12.0 [facility] Work Phone: [phone] Determination of erythrocyte mean corpuscular volume (MCV)on 09-23-2021 MCV (RBC) [Entitic vol] 97.6 fL 81-99 [facility] Work Phone: [phone] Hematocrit Auto (Bld) [Volum e fraction]on 09-23-2021 Hematocrit (Bld) [Volume fraction] 43.9 % 37-47 [facility] Work Phone: [phone] Laboratory - Chemistry and C hemistry - challengeon 09-23-2021 ALP [Catalytic activity/Vol] 97 U/L 45-117 [facility] Work Phone: [phone] ALT [Catalytic activity/Vol] 21 U/L 13-56 [facility] Work Phone: [phone] CO2 [Moles/Vol] 26.0 mmol/L 21.0-32.0 [facility] Work Phone: [phone] Globulin (S) [Mass/Vol] 4.0 g/dL 2.2-4.2 [facility] Work Phone: [phone] Urea nitrogen/Creatinine [Mass ratio] 31.0 mg/mg 10-20 [facility] Work Phone: [phone] Laboratory - Hematology and Cell countson 09-23-2021 Erythrocyte distribution width (RBC) [Entitic vol] 46.8 fL 35.1-43.9 [facility] Work Phone: [phone] Erythrocyte distribution width (RBC) [Ratio] 13.1 % 11.6-14.6 [facility] Work Phone: [phone] Immature granulocytes/100 WBC (Bld) 0.700 % 0.0-0.9 [facility] Work Phone: [phone] Comment on above: IG% - Immature Granu locytes (promyelocytes, myelocytes and metamyelocytes) > 1% indicates that a LEFT SHIFT is Present. MCH (RBC) [Entitic mass] 31.8 pg 27.0-32.0 [facility] Work Phone: [phone] Nucleated RBC/100 WBC (Bld) [Ratio] 0 % 0-5 [facility] Work Phone: [phone] MCHC Auto (RBC) [Mass/Vol]on 09-23-2021 MCHC (RBC) [Mass/Vol] 32.6 g/dL 32-36 [facility] Work Phone: [phone] No Panel Informationon 09-23 Estimated GFR (MDRD) Amer 54 mL/min >60 [facility] Work Phone: Comment on above: GFR Calc Estimated GFR (MDRD) Non-Af Amer 44 mL/min >60 [facility] Work Phone: Comment on above: Non- GFR Calc Thyroid Stimulating Hormone (TSH) 1.62 uIU/mL 0.358-3.74 [facility] Work Phone: Vitamin D 25-Hydroxy 39.6 ng/mL [facility] Work Phone: Comment on above: Vitamin D 25(OH) Sta tus Range Deficiency <20 ng/mL (50nmol/L) Insufficiency 20 - 30 ng/mL (50 - 75 nmol/L) Sufficiency 30 - 100 ng/mL (75 - 250 nmol/L) Toxicity >100 ng/mL (>250 nmol/L) Platelets bldon 09-23-2021 Platelets (Bld) [#/Vol] 265 10*3/uL 150-450 [facility] Work Phone: [phone] Serum or plasma albumin don urement (mass/volume)on 09-23-2021 Albumin [Mass/Vol] 3.1 g/dL 3.2-5.0 [facility] Work Phone: [phone] Serum or plasma albumin/glob ulin mass ratioon 09-23-2021 Albumin/Globulin [Mass ratio] 0.8 {ratio} 0.9-2.4 [facility] Work Phone: [phone] Serum or plasma calcium don urement (mass/volume)on 09-23-2021 Calcium [Mass/Vol] 8.8 mg/dL 8.5-10.1 [facility] Work Phone: [phone] Serum or plasma cholesterol in HDL measurement (mass/volume)on 09-23-2021 Cholesterol in HDL [Mass/Vol] 60 mg/dL >40 [facility] Work Phone: Comment on above: The drugs N-Acetylcy steine and Metamizole may falsely depress this assay. Reference Range HDL <40 mg/dL Low HDL Cholesterol HDL >or= 60 mg/dL High HDL Cholesterol Serum or plasma cholesterol in VLDL measurement (mass/volume)on 09-23-2021 Cholesterol in VLDL [Mass/Vol] 19 mg/dL 5-40 [facility] Work Phone: Serum or plasma creatinine m easurement (mass/volume)on 09-23-2021 Creatinine [Mass/Vol] 1.26 mg/dL 0.55-1.02 [facility] Work Phone: Comment on above: The validity of the calculated GFR & GFRAA in patients over 70 years has not been determined. Clinical correlation is essential. Serum or plasma low density lipoprotein (LDL) cholesterol measurement (mass/volume)on 09-23-2021 Cholesterol in LDL [Mass/Vol] 41 mg/dL 0-130 [facility] Work Phone: Serum or plasma urea nitroge n measurement (mass/volume)on 09-23-2021 Urea nitrogen [Mass/Vol] 39 mg/dL 7-18 [facility] Work Phone: Thin prep Papanicolaou smear with manual screeningon 09-23-2021 Thin prep Papanicolaou smear with manual screening 17 U/L 15-37 [facility] Work Phone: Thin prep Papanicolaou smear with manual screening 4 5-15 [facility] Work Phone: CR Hand Complete 3+ Views Le fton 05-19-2020 CR Hand Complete 3+ Views Left Patient Name: CECILIA HERRERA Diagnostic Radiology Exam Date/Time 05/18/2020 13:36:00 EST Exam CR Hand Complete 3+ Views Left Ordering Physician MD SYED, RIAZ Epperson Accession Number [id number] CPT4 Codes 07266 () Reason For Exam Z89.022 POST-SURGICAL AMPUTATION OF FINGER OF LEFT HAND Report Three views of the left hand, 05/18/2020. Reason for examination: Left hand pain. Recent surgery. COMPARISON: April 30, 2020. FINDINGS: There has been interval amputation of the third digit of the left hand in the proximal diaphyseal region of the third metacarpal. There is moderate, nonfocal soft tissue prominence which is slightly increased compared to the previous study. No acute fracture is identified. There are advanced degenerative changes at the first carpometacarpal joint, relatively similar to the prior study. There is mild osteopenia. No destructive osseous process is noted. IMPRESSION: Interval amputation of the third digit as described. Soft tissue swelling and chronic degenerative changes. Report Dictated on Final Dictating Physician: MD COREA JOE M Signed Date and Time: 05/19/2020 10:55 am Signed by: MD COREA JOE M Transcribed Date and Time: 05/19/2020 10:56 Normal [facility] CR Chest Portableon 05-05-20 20 CR Chest Portable Patient Name: CECILIA HERRERA Diagnostic Radiology Exam Date/Time 05/05/2020 18:31:53 EST Exam CR Chest Portable Ordering Physician YENY CASTELAN Accession Number [id number] CPT4 Codes 94530 () Reason For Exam PICC Placement Report Chest one view History: Line placement Right arm PICC line with tip in the SVC. The heart, mediastinum, pulmonary vasculature, lungs and pleural spaces are normal. IMPRESSION: Normal examination. Report Dictated on Final Dictated: 05/05/2020 5:56 pm Dictating Physician: MD AVALOS MALAY Signed Date and Time: 05/05/2020 5:56 pm Signed by: MD AVALOS MALAY Transcribed Date and Time: 05/05/2020 5:56 Normal [facility] Glucose,Bedsideon 05-05-2020 Glucose [Mass/Vol] 179 mg/dL High 70-100 [facility] Comment on above: Result Comment: Test performed by glucose meter. Results may be 10%-15% lower than serum/plasma values. (CLIA ID [id number]) Performed By: #### B GLU #### [address] [address] Glucose [Mass/Vol] 127 mg/dL High 70-100 [facility] Comment on above: Result Comment: Test performed by glucose meter. Results may be 10%-15% lower than serum/plasma values. (CLIA ID [id number]) Performed By: #### C MP3, HEMDF #### [facility] [employer] [facility] [address] [place] [address] Glucose [Mass/Vol] 131 mg/dL High 70-100 [facility] Comment on above: Result Comment: Test performed by glucose meter. Results may be 10%-15% lower than serum/plasma values. (CLIA ID [id number]) Performed By: #### C MP3, HEMDF #### [facility] [address] [place] [address] Glucose [Mass/Vol] 171 mg/dL High 70-100 [facility] Comment on above: Result Comment: Test performed by glucose meter. Results may be 10%-15% lower than serum/plasma values. (CLIA ID [id number]) Performed By: #### B GLU #### [place] [address] [place] [address] POCT Glucoseon 05-05-2020 Glucose [Mass/Vol] 179 mg/dL High 70 - 100 mg/dL [place], [place] Comment on above: Test performed by gl ucose meter. Results may be 10%-15% lower than serum/plasma values. (CLIA ID [id number]) Interpretation and review of laboratory results Abnormal [facility] [employer] [place], [place] Test Performed by [employer] [facility], [facility] [place] [address] [place], [place] Glucose [Mass/Vol] 127 mg/dL High 70 - 100 mg/dL [place], [place] Comment on above: Test performed by gl ucose meter. Results may be 10%-15% lower than serum/plasma values. (CLIA ID [id number]) Interpretation and review of laboratory results Abnormal [facility] [employer] [place] Test Performed by [employer], [facility] [place] [address] [place], [place] Glucose [Mass/Vol] 131 mg/dL High 70 - 100 mg/dL [place], [place] Comment on above: Test performed by gl ucose meter. Results may be 10%-15% lower than serum/plasma values. (CLIA ID [id number]) Interpretation and review of laboratory results Abnormal [facility], [place] Test Performed by [facility], [address] [place] [id number] [facility], [place] XR CHEST PORTABLEon 05-05-20 Patient Name: CECILIA HERRERA ---Diagnostic Radiology--- Exam Date/Time 05/05/2020 18:31:53 EST Exam CR Chest Portable Ordering Physician YENY CASTELAN Accession Number [id number] CPT4 Codes 16406 () Reason For Exam PICC Placement Report Chest one view History: Line placement Right arm PICC line with tip in the SVC. The heart, mediastinum, pulmonary vasculature, lungs and pleural spaces are normal. IMPRESSION: Normal examination. Report Dictated on --- Final --- Dictated: 05/05/2020 5:56 pm Dictating Physician: MD AVALOS MALAY Signed Date and Time: 05/05/2020 5:56 pm Signed by: MD AVALOS MALAY Transcribed Date and Time: 05/05/2020 5:56 [facility], [place], [facility] Incoming Rad[facility] - 05/05/2020 6:32 PM EST Patient Name: CECILIA HERRERA ---Diagnostic Radiology--- Exam Date/Time 05/05/2020 18:31:53 EST Exam CR Chest Portable Ordering Physician YENY CASTELAN Accession Number [id number] CPT4 Codes 23544 () Reason For Exam PICC Placement Report Chest one view History: Line placement Right arm PICC line with tip in the SVC. The heart, mediastinum, pulmonary vasculature, lungs and pleural spaces are normal. IMPRESSION: Normal examination. Report Dictated on --- Final --- Dictated: 05/05/2020 5:56 pm Dictating Physician: MD AVALOS MALAY Signed Date and Time: 05/05/2020 5:56 pm Signed by: MD AVALOS MALAY Transcribed Date and Time: 05/05/2020 5:56 [facility], [place] CULT/STAIN - AEROBIC AND ALAINA EROBICon 05-04-2020 CULT/STAIN - AEROBIC AND ANAEROBIC STAIN GRAM --> Status: F Few polymorphonuclear cells/lpf. Rare gram positive cocci . Rare gram positive cocci . CULTURE ANAEROBE --> Status: F No growth of anaerobes at 5 days. 1 Organism Staphylococcus aureus Few Positive for PBP2a (MRSA). Methicillin-resistant Staphylococcus aureus(MRSA) 1 Organism Antibiotic Result Intrp Nafcillin/Oxacillin(M IC) >= 4 R Inducible Clindamycin Resistant(MELINDA)Neg Neg Clindamycin(MELINDA) = 0.25 S Vancomycin(MELINDA) <= 0.5 S Trimeth/Sulfa(MELINDA) <= 10 S Linezolid(MELINDA) = 2 S Daptomycin(MELINDA) = 0.25 S Gentamicin(MELINDA) <= 0.5 S Doxycycline(MELINDA) <= 0.5 S Tigecycline(MELINDA) <= 0.12 S Rifampin(MELINDA) <= 0.5 S Normal [facility] [employer] Comment on above: Order Comment: Speci men collected in O.R.; received on swab. Performed By: #### B GLU #### [facility] [address] [place] [phone] CULT/STAIN - AEROBIC AND ANAEROBIC STAIN GRAM --> Status: F Rare polymorphonuclear cells/lpf. No organisms seen. No organisms seen. CULTURE ANAEROBE --> Status: F No growth of anaerobes at 5 days. 1 Organism Staphylococcus aureus Rare For identification and/or sensitivity, refer to culture collected on: 05/01/2020 at 1422 ([id number]) Normal [facility] Comment on above: Order Comment: Speci men collected in O.R.; received on swab. Performed By: #### B GLU #### [facility] [employer] [address] [address] ECHO Complete 2D W Doppler W Coloron 05-04-2020 TRANSTHORACIC ECHOCARDIOGRAM PATIENT: Tyler, STUDY DATE: 05/04/2020 Cecilia Locke : 1950 AGE: 70 HT/WT: 165.1 cm (65 126.6 kg (278.4 in) lb) GENDER: F BP: 118 / 82 LOCATION: [facility] PATIENT Inpatient main STATUS: *ORDERING PHYSICIAN: * Sabrina Parsosn *READING PHYSICIAN: * Nayeli, *POSTDOCTORAL FELLOW: * Corrie Villalobos MD Breanna -------- INDICATIONS: MRSA bacteremia, R/O endocarditis. -------- CONCLUSIONS SUMMARY: 1. Left ventricle: Systolic function is normal by the biplane method of disks. The estimated ejection fraction is 62%. 2. No significant valve disease. 3. No vegetations or other evidence for infectious endocarditis. 4. Technically difficult study. -------- STUDY DATA: Complete transthoracic echocardiogram. Procedure: Image quality was poor. The study was technically limited due to poor acoustic window availability and body habitus. Intravenous imaging enhancement (Definity) was administered to opacify the chamber. Definity lot #: [id number]. M-mode, complete 2D, complete spectral Doppler, and color flow Doppler images were acquired and archived for permanent storage and are available for subsequent review. Study status: Routine. Patient status: Inpatient. ECG RHYTHM: NSR -------- FINDINGS LEFT VENTRICLE: Not well visualized. The cavity size is normal. Wall thickness is normal. Systolic function is normal by the biplane method of disks. The estimated ejection fraction is 62%. Although no diagnostic regional wall motion abnormality is identified, this possibility cannot be completely excluded on the basis of this study. Unable to assess LV diastolic function due to suboptimal technical data RIGHT VENTRICLE: Poorly visualized. The cavity size is normal. VENTRICULAR SEPTUM: There is no evidence of a ventricular septal defect. LEFT ATRIUM: Poorly visualized. The atrium is normal in size. RIGHT ATRIUM: Poorly visualized. The atrium is normal in size. ATRIAL SEPTUM: Not well visualized. Color Doppler shows no shunt. MITRAL VALVE: Not well visualized. Mildly calcified annulus. Doppler: There is no significant regurgitation. The peak diastolic gradient is 3 mm Hg. AORTIC VALVE: Not well visualized. Probably trileaflet. Doppler: There is no significant regurgitation. Dimensionless index: 0.59. The valve area by the velocity-time integral method is 2.1 cm^2. The valve area index by the velocity-time integral method is 0.8 cm^2/m^2. The mean systolic gradient is 9 mm Hg. The peak systolic gradient is 20 mm Hg. The peak systolic velocity is 2.2 m/sec. TRICUSPID VALVE: Not well visualized. Doppler: There is no significant regurgitation. PULMONIC VALVE: Not well visualized. Doppler: There is no significant regurgitation. AORTA: The aorta is poorly visualized and normal. PULMONARY ARTERY: Main pulmonary artery: Normal. SYSTEMIC VEINS: Inferior vena cava: The vessel is dilated. The IVC collapses by greater than 50% with inspiration. -------- Measurements Left ventricle Value Reference Stroke volume/bsa, 1-p A2C 23.6 ml/m^2 LV end-diastolic volume, 1-p A4C 127 ml 48 - 140 LV end-systolic volume, 1-p A4C 55 ml 12 - 60 LV end-diastolic volume, 2-p 104 ml 46 - 106 LV end-systolic volume, 2-p 40 ml 14 - 42 LV ejection fraction, 2-p 62 % 54 - 74 LV E/e', lateral 10.4 LV E/e', medial 11.9 LV E/e', average 11.1 LVOT Value Reference LVOT ID, A-P 2.2 cm LVOT mean velocity, S 0.8 m/sec LVOT peak gradient, S 7 mm Hg Stroke volume (SV), LVOT DP 97 ml Stroke index (SV/bsa), LVOT DP 39 ml/m^2 Aortic valve Value Reference Aortic valve peak velocity, S 2.2 m/sec Aortic valve mean velocity, S 1.5 m/sec Aortic mean gradient, S 9 mm Hg Aortic peak gradient, S 20 mm Hg DI 0.59 Aortic valve area, VTI 2.1 cm^2 Aortic valve area/bsa, VTI 0.8 cm^2/m^2 Left atrium Value Reference LA volume/bsa, ES, 2-p 21 ml/m^2 16 - 34 Mitral valve Value Reference Mitral E-wave peak velocity 0.9 m/sec Mitral A-wave peak velocity 1.2 m/sec Mitral deceleration time 238 ms Mitral peak gradient, D 3 mm Hg Mitral E/A ratio, peak 0.7 Right atrium Value Reference RA area, ES, A4C 12 cm^2 10 - 18 Right ventricle Value Reference RV ID, minor axis, ED, A4C base (H) 4.2 cm 2.5 - 4.1 RV ID, minor axis, ED, A4C mid 3.3 cm 1.9 - 3.5 TAPSE, 2D 2.9 cm 1.7 - 3.1 RV s', lateral 12.2 cm/sec 6.0 - 13.4 Legend: (L) and (H) costa values outside specified reference range. Electronically signed by Corrie Tyler MD 05/04/2020 13:44 Prior Signatures: [facility], [facility], [facility] Incoming Cardiology Results From [facility] - 05/04/2020 1:44 PM EST TRANSTHORACIC ECHOCARDIOGRAM PATIENT: Tyler, STUDY DATE: 05/04/2020 Cecilia Locke : 1950 AGE: 70 HT/WT: 165.1 cm (65 126.6 kg (278.4 in) lb) GENDER: F BP: 118 / 82 LOCATION: [facility] PATIENT Inpatient main STATUS: *ORDERING PHYSICIAN: * Sabrina Parsons *READING PHYSICIAN: * Nayeli, *POSTDOCTORAL FELLOW: * Corrie Villalobos MD Breanna -------- INDICATIONS: MRSA bacteremia, R/O endocarditis. -------- CONCLUSIONS SUMMARY: 1. Left ventricle: Systolic function is normal by the biplane method of disks. The estimated ejection fraction is 62%. 2. No significant valve disease. 3. No vegetations or other evidence for infectious endocarditis. 4. Technically difficult study. -------- STUDY DATA: Complete transthoracic echocardiogram. Procedure: Image quality was poor. The study was technically limited due to poor acoustic window availability and body habitus. Intravenous imaging enhancement (Definity) was administered to opacify the chamber. Definity lot #: [id number]. M-mode, complete 2D, complete spectral Doppler, and color flow Doppler images were acquired and archived for permanent storage and are available for subsequent review. Study status: Routine. Patient status: Inpatient. ECG RHYTHM: NSR -------- FINDINGS LEFT VENTRICLE: Not well visualized. The cavity size is normal. Wall thickness is normal. Systolic function is normal by the biplane method of disks. The estimated ejection fraction is 62%. Although no diagnostic regional wall motion abnormality is identified, this possibility cannot be completely excluded on the basis of this study. Unable to assess LV diastolic function due to suboptimal technical data RIGHT VENTRICLE: Poorly visualized. The cavity size is normal. VENTRICULAR SEPTUM: There is no evidence of a ventricular septal defect. LEFT ATRIUM: Poorly visualized. The atrium is normal in size. RIGHT ATRIUM: Poorly visualized. The atrium is normal in size. ATRIAL SEPTUM: Not well visualized. Color Doppler shows no shunt. MITRAL VALVE: Not well visualized. Mildly calcified annulus. Doppler: There is no significant regurgitation. The peak diastolic gradient is 3 mm Hg. AORTIC VALVE: Not well visualized. Probably trileaflet. Doppler: There is no significant regurgitation. Dimensionless index: 0.59. The valve area by the velocity-time integral method is 2.1 cm^2. The valve area index by the velocity-time integral method is 0.8 cm^2/m^2. The mean systolic gradient is 9 mm Hg. The peak systolic gradient is 20 mm Hg. The peak systolic velocity is 2.2 m/sec. TRICUSPID VALVE: Not well visualized. Doppler: There is no significant regurgitation. PULMONIC VALVE: Not well visualized. Doppler: There is no significant regurgitation. AORTA: The aorta is poorly visualized and normal. PULMONARY ARTERY: Main pulmonary artery: Normal. SYSTEMIC VEINS: Inferior vena cava: The vessel is dilated. The IVC collapses by greater than 50% with inspiration. -------- Measurements Left ventricle Value Reference Stroke volume/bsa, 1-p A2C 23.6 ml/m^2 LV end-diastolic volume, 1-p A4C 127 ml 48 - 140 LV end-systolic volume, 1-p A4C 55 ml 12 - 60 LV end-diastolic volume, 2-p 104 ml 46 - 106 LV end-systolic volume, 2-p 40 ml 14 - 42 LV ejection fraction, 2-p 62 % 54 - 74 LV E/e', lateral 10.4 LV E/e', medial 11.9 LV E/e', average 11.1 LVOT Value Reference LVOT ID, A-P 2.2 cm LVOT mean velocity, S 0.8 m/sec LVOT peak gradient, S 7 mm Hg Stroke volume (SV), LVOT DP 97 ml Stroke index (SV/bsa), LVOT DP 39 ml/m^2 Aortic valve Value Reference Aortic valve peak velocity, S 2.2 m/sec Aortic valve mean velocity, S 1.5 m/sec Aortic mean gradient, S 9 mm Hg Aortic peak gradient, S 20 mm Hg DI 0.59 Aortic valve area, VTI 2.1 cm^2 Aortic valve area/bsa, VTI 0.8 cm^2/m^2 Left atrium Value Reference LA volume/bsa, ES, 2-p 21 ml/m^2 16 - 34 Mitral valve Value Reference Mitral E-wave peak velocity 0.9 m/sec Mitral A-wave peak velocity 1.2 m/sec Mitral deceleration time 238 ms Mitral peak gradient, D 3 mm Hg Mitral E/A ratio, peak 0.7 Right atrium Value Reference RA area, ES, A4C 12 cm^2 10 - 18 Right ventricle Value Reference RV ID, minor axis, ED, A4C base (H) 4.2 cm 2.5 - 4.1 RV ID, minor axis, ED, A4C mid 3.3 cm 1.9 - 3.5 TAPSE, 2D 2.9 cm 1.7 - 3.1 RV s', lateral 12.2 cm/sec 6.0 - 13.4 Legend: (L) and (H) costa values outside specified reference range. Electronically signed by Corrie Tyler MD 05/04/2020 13:44 Prior Signatures: [facility] [place], [place] Echo Complete w/wo Contrasto n 05-04-2020 Echo Complete w/wo Contrast Patient Name: CECILIA HERRERA Ultrasound Exam Date/Time 05/04/2020 12:55:16 EST Exam Echo Complete w/wo Contrast Ordering Physician SABRINA PARSONS Accession Number [id number] Reason For Exam MRSA Bacteria - R/O Endocarditis Report TRANSTHORACIC ECHOCARDIOGRAM PATIENT: Tyler, STUDY DATE: 05/04/2020 Cecilia Locke : 1950 AGE: 70 HT/WT: 165.1 cm (65 126.6 kg (278.4 in) lb) GENDER: F BP: 118 / 82 LOCATION: [facility] PATIENT Inpatient main STATUS: *ORDERING PHYSICIAN: * Sabrina Parsons *READING PHYSICIAN: * Nayeli, *POSTDOCTORAL FELLOW: * Corrie Villalobos MD Breanna -------- INDICATIONS: MRSA bacteremia, R/O endocarditis. -------- CONCLUSIONS SUMMARY: 1. Left ventricle: Systolic function is normal by the biplane method of disks. The estimated ejection fraction is 62%. 2. No significant valve disease. 3. No vegetations or other evidence for infectious endocarditis. 4. Technically difficult study. -------- STUDY DATA: Complete transthoracic echocardiogram. Procedure: Image quality was poor. The study was technically limited due to poor acoustic window availability and body habitus. Intravenous imaging enhancement (Definity) was administered to opacify the chamber. Definity lot #: [id number]. M-mode, complete 2D, complete spectral Doppler, and color flow Doppler images were acquired and archived for permanent storage and are available for subsequent review. Study status: Routine. Patient status: Inpatient. ECG RHYTHM: NSR -------- FINDINGS LEFT VENTRICLE: Not well visualized. The cavity size is normal. Wall thickness is normal. Systolic function is normal by the biplane method of disks. The estimated ejection fraction is 62%. Although no diagnostic regional wall motion abnormality is identified, this possibility cannot be completely excluded on the basis of this study. Unable to assess LV diastolic function due to suboptimal technical data RIGHT VENTRICLE: Poorly visualized. The cavity size is normal. VENTRICULAR SEPTUM: There is no evidence of a ventricular septal defect. LEFT ATRIUM: Poorly visualized. The atrium is normal in size. RIGHT ATRIUM: Poorly visualized. The atrium is normal in size. ATRIAL SEPTUM: Not well visualized. Color Doppler shows no shunt. MITRAL VALVE: Not well visualized. Mildly calcified annulus. Doppler: There is no significant regurgitation. The peak diastolic gradient is 3 mm Hg. AORTIC VALVE: Not well visualized. Probably trileaflet. Doppler: There is no significant regurgitation. Dimensionless index: 0.59. The valve area by the velocity-time integral method is 2.1 cm^2. The valve area index by the velocity-time integral method is 0.8 cm^2/m^2. The mean systolic gradient is 9 mm Hg. The peak systolic gradient is 20 mm Hg. The peak systolic velocity is 2.2 m/sec. TRICUSPID VALVE: Not well visualized. Doppler: There is no significant regurgitation. PULMONIC VALVE: Not well visualized. Doppler: There is no significant regurgitation. AORTA: The aorta is poorly visualized and normal. PULMONARY ARTERY: Main pulmonary artery: Normal. SYSTEMIC VEINS: Inferior vena cava: The vessel is dilated. The IVC collapses by greater than 50% with inspiration. -------- Measurements Left ventricle Value Reference Stroke volume/bsa, 1-p A2C 23.6 ml/m^2 LV end-diastolic volume, 1-p A4C 127 ml 48 - 140 LV end-systolic volume, 1-p A4C 55 ml 12 - 60 LV end-diastolic volume, 2-p 104 ml 46 - 106 LV end-systolic volume, 2-p 40 ml 14 - 42 LV ejection fraction, 2-p 62 % 54 - 74 LV E/e', lateral 10.4 LV E/e', medial 11.9 LV E/e', average 11.1 LVOT Value Reference LVOT ID, A-P 2.2 cm LVOT mean velocity, S 0.8 m/sec LVOT peak gradient, S 7 mm Hg Stroke volume (SV), LVOT DP 97 ml Stroke index (SV/bsa), LVOT DP 39 ml/m^2 Aortic valve Value Reference Aortic valve peak velocity, S 2.2 m/sec Aortic valve mean velocity, S 1.5 m/sec Aortic mean gradient, S 9 mm Hg Aortic peak gradient, S 20 mm Hg DI 0.59 Aortic valve area, VTI 2.1 cm^2 Aortic valve area/bsa, VTI 0.8 cm^2/m^2 Left atrium Value Reference LA volume/bsa, ES, 2-p 21 ml/m^2 16 - 34 Mitral valve Value Reference Mitral E-wave peak velocity 0.9 m/sec Mitral A-wave peak velocity 1.2 m/sec Mitral deceleration time 238 ms Mitral peak gradient, D 3 mm Hg Mitral E/A ratio, peak 0.7 Right atrium Value Reference RA area, ES, A4C 12 cm^2 10 - 18 Right ventricle Value Reference RV ID, minor axis, ED, A4C base (H) 4.2 cm 2.5 - 4.1 RV ID, minor axis, ED, A4C mid 3.3 cm 1.9 - 3.5 TAPSE, 2D 2.9 cm 1.7 - 3.1 RV s', lateral 12.2 cm/sec 6.0 - 13.4 Legend: (L) and (H) costa values outside specified reference range. Electronically signed by Corrie Tyler MD 05/04/2020 13:44 Prior Signatures: Final Dictated: 05/04/2020 1:44 pm Dictating Physician: Amilcar TYLER OTFRIED Signed Date and Time: 05/04/2020 1:44 pm Signed by: Amilcar TYLER OTFRIED Normal [facility] Glucose,Bedsideon 05-04-2020 Glucose [Mass/Vol] 183 mg/dL High 70-100 [facility] Comment on above: Result Comment: Test performed by glucose meter. Results may be 10%-15% lower than serum/plasma values. (CLIA ID [id number]) Performed By: #### C MP3, HEMDF #### [facility] [employer] [address] [address] Glucose [Mass/Vol] 231 mg/dL High 70-100 [facility] Comment on above: Result Comment: Test performed by glucose meter. Results may be 10%-15% lower than serum/plasma values. (CLIA ID [id number]) Performed By: #### C MP3, HEMDF #### [facility] [employer] [facility] [address] [place] [address] Glucose [Mass/Vol] 139 mg/dL High 70-100 [facility] Comment on above: Result Comment: Test performed by glucose meter. Results may be 10%-15% lower than serum/plasma values. (CLIA ID [id number]) Performed By: #### B GLU #### [facility] [address] [place] [address] Glucose [Mass/Vol] 195 mg/dL High 70-100 [facility] Comment on above: Result Comment: Test performed by glucose meter. Results may be 10%-15% lower than serum/plasma values. (CLIA ID [id number]) Performed By: #### C MP3, HEMDF #### [facility] [address] [place] [address] POCT Glucoseon 05-04-2020 Glucose [Mass/Vol] 171 mg/dL High 70 - 100 mg/dL [place] Comment on above: Test performed by gl ucose meter. Results may be 10%-15% lower than serum/plasma values. (CLIA ID [id number]) Interpretation and review of laboratory results Abnormal [place] Test Performed by [facility], [place] [address] [place] Glucose [Mass/Vol] 183 mg/dL High 70 - 100 mg/dL [place] Comment on above: Test performed by gl ucose meter. Results may be 10%-15% lower than serum/plasma values. (CLIA ID [id number]) Interpretation and review of laboratory results Abnormal [facility], [place] Test Performed by [employer], [facility] [place] [address] [place] Glucose [Mass/Vol] 231 mg/dL High 70 - 100 mg/dL [place] Comment on above: Test performed by gl ucose meter. Results may be 10%-15% lower than serum/plasma values. (CLIA ID [id number]) Interpretation and review of laboratory results Abnormal [place] Test Performed by [facility], [address] [place] [address] [place] Glucose [Mass/Vol] 139 mg/dL High 70 - 100 mg/dL [place] Comment on above: Test performed by gl ucose meter. Results may be 10%-15% lower than serum/plasma values. (CLIA ID [id number]) Interpretation and review of laboratory results Abnormal [place] Test Performed by [facility], [address] [place] [id number] [place] [address] Glucose [Mass/Vol] 195 mg/dL High 70 - 100 mg/dL [place] Comment on above: Test performed by gl ucose meter. Results may be 10%-15% lower than serum/plasma values. (CLIA ID [id number]) Interpretation and review of laboratory results Abnormal [place] Test Performed by [facility], [address] [place] [id number] [place] [address] Vancomycin Troughon 11-10-20 20 Vancomycin Trough 15.7 ug/mL Normal 15.0-20.0 [facility] Comment on above: Result Comment: . Performed By: #### V ANCT #### [address] [address] Vancomycin, Troughon 11-10-2 020 Vancomycin Tr 15.7 ug/mL 15 - 20 ug/mL [place] Comment on above: . Test Performed by [facility], [address] [place] [address] [place] CBC Auto Differentialon 11-0 Absolute Baso # 0.1 10*3/uL 0 - 0.2 10*3/uL [place] Absolute Neut # 5.5 10*3/uL 1.8 - 7 10*3/uL [place] Basophils/100 WBC (Bld) 1.1 % 0 - 2 % [place], [place] Eosinophils (Bld) [#/Vol] 0.1 10*3/uL 0 - 0.5 10*3/uL [place] Eosinophils/100 WBC (Bld) 1.2 % 1 - 6 % [place] Erythrocyte distribution width (RBC) [Ratio] 13.4 % 11.5 - 14.5 % [place] Granulocytes/100 WBC (Bld) 64.3 % 40 - 80 % [place] Hematocrit (Bld) [Volume fraction] 38.4 % 35 - 47 % [place] Hemoglobin (Bld) [Mass/Vol] 12.7 g/dL 11.7 - 16 g/dL [place] Lymphocytes (Bld) [#/Vol] 2.1 10*3/uL 1 - 4.3 10*3/uL [place] Lymphocytes/100 WBC (Bld) 24.5 % 20 - 40 % [place] MCH (RBC) [Entitic mass] 31.5 pg 26 - 34 pg [place] MCHC (RBC) [Mass/Vol] 33.0 % 32 - 36 % [place] MCV (RBC) [Entitic vol] 95.4 fL 79 - 98 fL [place], [place] Monocytes (Bld) [#/Vol] 0.8 10*3/uL 0 - 0.8 10*3/uL [place] Monocytes/100 WBC (Bld) 8.9 % 2 - 10 % [place] Platelet mean volume (Bld) [Entitic vol] 7.9 fL 7.4 - 10.4 fL [place] Platelets (Bld) [#/Vol] 329 10*3/uL 140 - 440 10*3/uL [place] RBC (Bld) [#/Vol] 4.02 10*6/uL 3.8 - 5.2 10*6/uL [place] WBC (Bld) [#/Vol] 8.6 10*3/uL 3.6 - 10.7 10*3/uL [place] Test Performed by [facility], [address] [place] [address] [place], [place] Comp Metabolic Panelon 05-03 Calcium [Mass/Vol] 9.3 mg/dL Normal 8.4-10.4 [facility] Comment on above: Performed By: #### C MP3, HEMDF #### [place] [address] [address] [place], [place] ALP [Catalytic activity/Vol] 88 U/L Normal 38-126 [facility] Comment on above: Performed By: #### C MP3, HEMDF #### [place] [address] [address] [place], [place] ALT [Catalytic activity/Vol] 23 U/L Normal 0-34 [facility] Comment on above: Result Comment: The ALT test is performed by an updated assay method. Please note that the reference intervals have been changed and are now sex specific. Performed By: #### C MP3, HEMDF #### [place] [address] [address] [place], [place] Anion gap [Moles/Vol] 7 Normal [facility] Comment on above: Performed By: #### C MP3, HEMDF #### [place] [address] [address] [place], [place] AST [Catalytic activity/Vol] 34 U/L Normal 15-46 [facility] Comment on above: Performed By: #### C MP3, HEMDF #### [place] [address] [address] [place], [place] Bilirubin [Mass/Vol] 0.4 mg/dL Normal 0.2-1.3 [facility] Comment on above: Performed By: #### C MP3, HEMDF #### [place] [address] [address] [place], [place] CO2 [Moles/Vol] 28 mmol/L Normal 22-30 [facility] Comment on above: Performed By: #### C MP3, HEMDF #### [place] [address] [address] [place], [place] Glucose [Mass/Vol] 128 mg/dL High 70-100 [facility] Comment on above: Performed By: #### C MP3, HEMDF #### [place] [address] [address] [place], [place] Protein [Mass/Vol] 7.4 g/dL Normal 6.3-8.2 [facility] Comment on above: Performed By: #### C MP3, HEMDF #### [address] Urea nitrogen [Mass/Vol] 25 mg/dL High 7-20 [facility] Comment on above: Performed By: #### C MP3, HEMDF #### [address] Creatinine [Mass/Vol] 1.02 mg/dL Normal 0.52-1.25 [facility] Comment on above: Performed By: #### C MP3, HEMDF #### [address] GFR/1.73 sq M predicted among blacks MDRD (S/P/Bld) [Vol rate/Area] 64.5 mL/min/{1.73_m2} Normal >60 [facility] Comment on above: Performed By: #### C MP3, HEMDF #### [address] [address] [place] [address] GFR/1.73 sq M predicted among non-blacks MDRD (S/P/Bld) [Vol rate/Area] 55.6 mL/min/{1.73_m2} Abnormal >60 [facility] Comment on above: Result Comment: KDIG O guidelines provide the following GFR categories: Stage GFR(ml/min/1.73 m2) Terms G1 >=90 Normal or high G2 60-89 Mildly decreased* G3a 45-59 Mildly to moderately decreased G3b 30-44 Moderately to severely decreased G4 15-29 Severely decreased G5 <15 Kidney failure *Relative to young adult level. In the absence of evidence of kidney damage, neither GFR category G1 nor G2 fulfill the criteria for CKD. The CKD-EPI equation is validated in individuals 18 years of age and older. Currently the best equation for estimating glomerular filtration rate (GFR) from serum creatinine in children is the Bedside Bhatti equation. It is less accurate in patients with extremes of muscle mass, restriction of dietary protein, ingestion of creatine, extra-renal metabolism of creatinine, or treatment with medications that affect renal tubular creatinine secretion. Performed By: #### C MP3, HEMDF #### [facility] [address] [place] [address] Albumin [Mass/Vol] 3.6 g/dL Normal 3.5-5.0 [facility] Comment on above: Performed By: #### C MP3, HEMDF #### [facility] [address] [place] [address] Chloride [Moles/Vol] 102 mmol/L Normal 98-107 [facility] Comment on above: Performed By: #### C MP3, HEMDF #### [facility] [address] [place] [address] Potassium [Moles/Vol] 4.4 mmol/L Normal 3.5-5.1 [facility] Comment on above: Performed By: #### C MP3, HEMDF #### [facility] [address] [place] [address] Sodium [Moles/Vol] 138 mmol/L Normal 135-145 [facility] Comment on above: Performed By: #### C MP3, HEMDF #### [facility] [address] [place] [address] Comprehensive Metabolic Pane doug 05-03-2020 Albumin [Mass/Vol] 3.6 g/dL 3.5 - 5 g/dL [place], [place] ALP [Catalytic activity/Vol] 88 U/L 38 - 126 U/L [place] ALT [Catalytic activity/Vol] 23 U/L 0 - 34 U/L [place] Comment on above: The ALT test is perf ormed by an updated assay method. Please note that the reference intervals have been changed and are now sex specific. Anion gap [Moles/Vol] 7 mmol/L [place], [place] AST [Catalytic activity/Vol] 34 U/L 15 - 46 U/L [place] Bilirubin Ql (U) 0.4 mg/dL 0.2 - 1.3 mg/dL [place] Calcium [Mass/Vol] 9.3 mg/dL 8.4 - 10. 4 mg/dL [place] Chloride [Moles/Vol] 102 mmol/L 98 - 10 7 mmol/L [place] CO2 [Moles/Vol] 28 mmol/L 22 - 30 mmol/L [place] Creatinine [Mass/Vol] 1.02 mg/dL 0.52 - 1.25 mg/dL [place] EGFR IF NonAfrican Indian 55.6 mL/min Abnormal >60 [place] Comment on above: KDIGO guidelines pro vide the following GFR categories: Stage GFR(ml/min/1.73 m2) Terms G1 >=90 Normal or high G2 60-89 Mildly decreased* G3a 45-59 Mildly to moderately decreased G3b 30-44 Moderately to severely decreased G4 15-29 Severely decreased G5 <15 Kidney failure *Relative to young adult level. In the absence of evidence of kidney damage, neither GFR category G1 nor G2 fulfill the criteria for CKD. The CKD-EPI equation is validated in individuals 18 years of age and older. Currently the best equation for estimating glomerular filtration rate (GFR) from serum creatinine in children is the Bedside Bhatti equation. It is less accurate in patients with extremes of muscle mass, restriction of dietary protein, ingestion of creatine, extra-renal metabolism of creatinine, or treatment with medications that affect renal tubular creatinine secretion. GFR/1.73 sq M predicted among blacks MDRD (S/P/Bld) [Vol rate/Area] 64.5 mL/min/{1.73_m2} >60 [place] Glucose [Mass/Vol] 128 mg/dL High 70 - 100 mg/dL [place] Interpretation and review of laboratory results Abnormal [place] Potassium [Moles/Vol] 4.4 mmol/L 3.5 - 5.1 mmol/L [place] Protein [Mass/Vol] 7.4 g/dL 6.3 - 8.2 g/dL [place] Sodium [Moles/Vol] 138 mmol/L 135 - 145 mmol/L [place] Urea nitrogen [Mass/Vol] 25 mg/dL High 7 - 20 mg/d L [place] Test Performed by [facility], [address] [place] [address] [place] Culture, Blood 2on 0 Blood Culture, Routine POSITIVE: Staphylococcus aureus DETECTED. POSITIVE: mecA (methicillin resistance gene) DETECTED. Presumptive identification performed using [employer] PCR methodology; confirmatory identification to follow. _ The [employer] Blood Culture Identification PCR Panel can detect the following targets: Staphylococcus aureus, Staphylococcus species, Enterococcus species, Streptococcus species, Streptococcus agalactiae (Group B), Streptococcus pneumoniae, Streptococcus pyogenes (Group A), Listeria monocytogenes, Acinetobacter baumannii complex, Enterobacteriaceae, Enterobacter cloacae complex, Escherichia coli, Klebsiella oxytoca, Klebsiella pneumoniae, Proteus species, Serratia marcescens, Pseudomonas aeruginosa, Haemophilus influenzae, Neisseria meningitidis, Talia albicans, Talia glabrata, Talia krusei, Talia parapsilosis, Talia tropicalis Abnormal [place], [place] Blood Culture, Routine Staphylococcus aureus Abnormal [place] INR Coag (Bld) [Relative time] Isolated: ID consult required per med staff policy dated Feb 2014. Methicillin-resistant Staphylococcus aureus(MRSA) [place] Interpretation and review of laboratory results Abnormal [place] Test Performed by [facility], [address] [place] [id number] Specimen Source Comment:Blood [place], [place] Glucose,Bedsideon 05-03-2020 Glucose [Mass/Vol] 201 mg/dL High 70-100 [facility] Comment on above: Result Comment: Test performed by glucose meter. Results may be 10%-15% lower than serum/plasma values. (CLIA ID [id number]) Performed By: #### B GLU #### [address] [address] Glucose [Mass/Vol] 160 mg/dL High 70-100 [facility] Comment on above: Result Comment: Test performed by glucose meter. Results may be 10%-15% lower than serum/plasma values. (CLIA ID [id number]) Performed By: #### B GLU #### [address] [address] Glucose [Mass/Vol] 145 mg/dL High 70-100 [facility] Comment on above: Result Comment: Test performed by glucose meter. Results may be 10%-15% lower than serum/plasma values. (CLIA ID [id number]) Performed By: #### C MP3, HEMDF #### [facility] [address], [place] Glucose [Mass/Vol] 166 mg/dL High 70-100 [facility] Comment on above: Result Comment: Test performed by glucose meter. Results may be 10%-15% lower than serum/plasma values. (CLIA ID [id number]) Performed By: #### B GLU #### [facility] [address], [place] Glucose [Mass/Vol] 311 mg/dL High 70-100 [facility] Comment on above: Result Comment: Test performed by glucose meter. Results may be 10%-15% lower than serum/plasma values. (CLIA ID [id number]) Performed By: #### B GLU #### [place] [address] [address] [place], [place] Hemogram w/ Autodiffon 05-03 Abs Baso Cnt 0.1 10*3/uL Normal 0.0-0.2 [facility] Comment on above: Performed By: #### C MP3, HEMDF #### [place] [address] [address] [place], [place] Abs Neutrophile Cnt 5.5 10*3/uL Normal 1.8-7.0 [facility] Comment on above: Performed By: #### C MP3, HEMDF #### [place] [address] [address] [place], [place] Basophils/100 WBC (Bld) 1.1 % Normal 0.0-2.0 [facility] Comment on above: Performed By: #### C MP3, HEMDF #### [place] [address] [address] [place], [place] Eosinophils (Bld) [#/Vol] 0.1 10*3/uL Normal 0.0-0.5 [facility] Comment on above: Performed By: #### C MP3, HEMDF #### [place] [address] [address] [place], [place] Eosinophils/100 WBC (Bld) 1.2 % Normal 1.0-6.0 [facility] Comment on above: Performed By: #### C MP3, HEMDF #### [place] [address] [place], [place] Erythrocyte distribution width (RBC) [Ratio] 13.4 % Normal 11.5-14.5 [facility] Comment on above: Performed By: #### C MP3, HEMDF #### [place] [address] [address] [place], [place] Granulocytes/100 WBC (Bld) 64.3 % Normal 40.0-80.0 [facility] Comment on above: Performed By: #### C MP3, HEMDF #### [place] [address] [place], [place] Hematocrit (Bld) [Volume fraction] 38.4 % Normal 35.0-47.0 [facility] Comment on above: Performed By: #### C MP3, HEMDF #### [place] [address] [address] [place] Hemoglobin (Bld) [Mass/Vol] 12.7 g/dL Normal 11.7-16.0 [facility] Comment on above: Performed By: #### C MP3, HEMDF #### [place] [address] [place], [place] Lymphocytes (Bld) [#/Vol] 2.1 10*3/uL Normal 1.0-4.3 [facility] Comment on above: Performed By: #### C MP3, HEMDF #### [place] [address] [address] [place], [place] Lymphocytes/100 WBC (Bld) 24.5 % Normal 20.0-40.0 [facility] Comment on above: Performed By: #### C MP3, HEMDF #### [place] [address] [place], [place] MCH (RBC) [Entitic mass] 31.5 pg Normal 26.0-34.0 [facility] Comment on above: Performed By: #### C MP3, HEMDF #### [place] [address] [address] [place], [place] MCHC (RBC) [Mass/Vol] 33.0 % Normal 32.0-36.0 [facility] Comment on above: Performed By: #### C MP3, HEMDF #### [place] [address] [address] [place], [place] MCV (RBC) [Entitic vol] 95.4 fL Normal 79.0-98.0 [facility] Comment on above: Performed By: #### C MP3, HEMDF #### [address] [place], [place] Monocytes (Bld) [#/Vol] 0.8 10*3/uL Normal 0.0-0.8 [facility] Comment on above: Performed By: #### C MP3, HEMDF #### [address] [address] [address] [place], [place] Monocytes/100 WBC (Bld) 8.9 % Normal 2.0-10.0 [facility] Comment on above: Performed By: #### C MP3, HEMDF #### [address] [address] [place], [place] Platelet mean volume (Bld) [Entitic vol] 7.9 fL Normal 7.4-10.4 [facility] Comment on above: Performed By: #### C MP3, HEMDF #### [address] [address] [place], [place] Platelets (Bld) [#/Vol] 329 10*3/uL Normal 140-440 [facility] Comment on above: Performed By: #### C MP3, HEMDF #### [address] [address] [place], [place] RBC (Bld) [#/Vol] 4.02 10*6/uL Normal 3.80-5.20 [facility] Comment on above: Performed By: #### C MP3, HEMDF #### [address] [address] [place], [place] WBC (Bld) [#/Vol] 8.6 10*3/uL Normal 3.6-10.7 [facility] Comment on above: Performed By: #### C MP3, HEMDF #### [facility] [address] [place] [address] POCT Glucoseon 05-03-2020 Glucose [Mass/Vol] 201 mg/dL High 70 - 100 mg/dL [facility] Comment on above: Test performed by gl ucose meter. Results may be 10%-15% lower than serum/plasma values. (CLIA ID [id number]) Interpretation and review of laboratory results Abnormal [email or web address] Test Performed by [employer] [facility], [facility] [place] [address] [facility] [place] Glucose [Mass/Vol] 160 mg/dL High 70 - 100 mg/dL [facility] Comment on above: Test performed by gl ucose meter. Results may be 10%-15% lower than serum/plasma values. (CLIA ID [id number]) Interpretation and review of laboratory results Abnormal [email or web address] Test Performed by [facility], [facility] [place] [address] [facility] Glucose [Mass/Vol] 145 mg/dL High 70 - 100 mg/dL [facility] Comment on above: Test performed by gl ucose meter. Results may be 10%-15% lower than serum/plasma values. (CLIA ID [id number]) Interpretation and review of laboratory results Abnormal [email or web address] Test Performed by [facility], [facility] [place] [address] [facility] Glucose [Mass/Vol] 166 mg/dL High 70 - 100 mg/dL [facility] [place] Comment on above: Test performed by gl ucose meter. Results may be 10%-15% lower than serum/plasma values. (CLIA ID [id number]) Interpretation and review of laboratory results Abnormal [facility] Test Performed by [facility], [address] [place] [address] [facility] [place] Basic Metabolic Panelon 11-0 Calcium [Mass/Vol] 8.9 mg/dL Normal 8.4-10.4 [facility] Comment on above: Performed By: #### B GLU #### [facility] [address] [place], [place] Glucose [Mass/Vol] 244 mg/dL High 70-100 [facility] Comment on above: Performed By: #### B GLU #### [facility] [address] [place] [address] Anion gap [Moles/Vol] 8 Normal [facility] Comment on above: Performed By: #### B GLU #### [facility] [address] [place], [place] CO2 [Moles/Vol] 23 mmol/L Normal 22-30 [facility] Comment on above: Performed By: #### B GLU #### [facility] [address] [place], [place] Creatinine [Mass/Vol] 0.80 mg/dL Normal 0.52-1.25 [facility] Comment on above: Performed By: #### B GLU #### [facility] [address] [place], [place] GFR/1.73 sq M predicted among blacks MDRD (S/P/Bld) [Vol rate/Area] 86.5 mL/min/{1.73_m2} Normal >60 [facility] Comment on above: Performed By: #### B GLU #### [facility] [address] [place] [address] GFR/1.73 sq M predicted among non-blacks MDRD (S/P/Bld) [Vol rate/Area] 74.6 mL/min/{1.73_m2} Normal >60 [facility] Comment on above: Result Comment: KDIG O guidelines provide the following GFR categories: Stage GFR(ml/min/1.73 m2) Terms G1 >=90 Normal or high G2 60-89 Mildly decreased* G3a 45-59 Mildly to moderately decreased G3b 30-44 Moderately to severely decreased G4 15-29 Severely decreased G5 <15 Kidney failure *Relative to young adult level. In the absence of evidence of kidney damage, neither GFR category G1 nor G2 fulfill the criteria for CKD. The CKD-EPI equation is validated in individuals 18 years of age and older. Currently the best equation for estimating glomerular filtration rate (GFR) from serum creatinine in children is the Bedside Bhatti equation. It is less accurate in patients with extremes of muscle mass, restriction of dietary protein, ingestion of creatine, extra-renal metabolism of creatinine, or treatment with medications that affect renal tubular creatinine secretion. Performed By: #### B GLU #### [facility] [address] [place], [place] Urea nitrogen [Mass/Vol] 18 mg/dL Normal 7-20 [facility] Comment on above: Performed By: #### B GLU #### [facility] [address] [place], [place] Chloride [Moles/Vol] 103 mmol/L Normal 98-107 [facility] Comment on above: Performed By: #### B GLU #### [facility] [address] [place], [place] Potassium [Moles/Vol] 4.2 mmol/L Normal 3.5-5.1 [facility] Comment on above: Performed By: #### B GLU #### [facility] [address] [place], [place] Sodium [Moles/Vol] 134 mmol/L Low 135-145 [facility] Comment on above: Performed By: #### B GLU #### [facility] [address] [place], [place] Anion gap [Moles/Vol] 8 mmol/L [place], [place] Calcium [Mass/Vol] 8.9 mg/dL 8.4 - 10. 4 mg/dL [place], [place] Chloride [Moles/Vol] 103 mmol/L 98 - 10 7 mmol/L [facility], [place] CO2 [Moles/Vol] 23 mmol/L 22 - 30 mmol/L [place] Creatinine [Mass/Vol] 0.8 mg/dL 0.52 - 1.25 mg/dL [facility], [place] EGFR IF NonAfrican Indian 74.6 mL/min >60 [place] Comment on above: KDIGO guidelines pro vide the following GFR categories: Stage GFR(ml/min/1.73 m2) Terms G1 >=90 Normal or high G2 60-89 Mildly decreased* G3a 45-59 Mildly to moderately decreased G3b 30-44 Moderately to severely decreased G4 15-29 Severely decreased G5 <15 Kidney failure *Relative to young adult level. In the absence of evidence of kidney damage, neither GFR category G1 nor G2 fulfill the criteria for CKD. The CKD-EPI equation is validated in individuals 18 years of age and older. Currently the best equation for estimating glomerular filtration rate (GFR) from serum creatinine in children is the Bedside Bhatti equation. It is less accurate in patients with extremes of muscle mass, restriction of dietary protein, ingestion of creatine, extra-renal metabolism of creatinine, or treatment with medications that affect renal tubular creatinine secretion. GFR/1.73 sq M predicted among blacks MDRD (S/P/Bld) [Vol rate/Area] 86.5 mL/min/{1.73_m2} >60 [place] Glucose [Mass/Vol] 244 mg/dL High 70 - 100 mg/dL [place] Interpretation and review of laboratory results Abnormal [place] Potassium [Moles/Vol] 4.2 mmol/L 3.5 - 5.1 mmol/L [place] Sodium [Moles/Vol] 134 mmol/L Low 135 - 145 mmol/L [place] Urea nitrogen [Mass/Vol] 18 mg/dL 7 - 20 mg/d L [place] Test Performed by [facility], [address] [place] [id number] [place], [place] CBC Auto Differentialon 11-0 Absolute Baso # 0.0 10*3/uL 0 - 0.2 10*3/uL [place] Absolute Neut # 8.6 10*3/uL High 1.8 - 7 10*3/uL [place] Basophils/100 WBC (Bld) 0.4 % 0 - 2 % M [place] Eosinophils (Bld) [#/Vol] 0.0 10*3/uL 0 - 0.5 10*3/uL [place] Eosinophils/100 WBC (Bld) 0.0 % Low 1 - 6 % [place] Erythrocyte distribution width (RBC) [Ratio] 13.2 % 11.5 - 14.5 % [place] Granulocytes/100 WBC (Bld) 86.0 % High 40 - 80 % [place] Hematocrit (Bld) [Volume fraction] 34.1 % Low 35 - 47 % [place] Hemoglobin (Bld) [Mass/Vol] 11.5 g/dL Low 11.7 - 16 g/dL [place] Interpretation and review of laboratory results Abnormal [place] Lymphocytes (Bld) [#/Vol] 0.8 10*3/uL Low 1 - 4.3 10*3/uL [place] Lymphocytes/100 WBC (Bld) 8.3 % Low 20 - 40 % [place] MCH (RBC) [Entitic mass] 31.8 pg 26 - 34 pg [place] MCHC (RBC) [Mass/Vol] 33.6 % 32 - 36 % [place] MCV (RBC) [Entitic vol] 94.8 fL 79 - 98 fL [place], [place] Monocytes (Bld) [#/Vol] 0.5 10*3/uL 0 - 0.8 10*3/uL [place] Monocytes/100 WBC (Bld) 5.3 % 2 - 10 % [place], [place] Platelet mean volume (Bld) [Entitic vol] 7.9 fL 7.4 - 10.4 fL [place] Platelets (Bld) [#/Vol] 280 10*3/uL 140 - 440 10*3/uL [place] RBC (Bld) [#/Vol] 3.60 10*6/uL Low 3.8 - 5.2 10*6/uL [place] WBC (Bld) [#/Vol] 10.0 10*3/uL 3.6 - 10.7 10*3/uL [place] Test Performed by [facility], [address] [place] [id number] [place] [address] EKG 12 Leadon 05-02-2020 [facility] Test Date: 2020-05-01 Pat Name: Cecilia eHrrera Department[facility] Room: 5110 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1950 Requested By: MILLI GOFF Order Number: [id number] Reading MD: Raúl Spann Measurements Intervals [place] Rate: 85 P: 61 CA: 159 QRS: 57 QRSD: 89 T: 52 QT: 363 QTc: 432 Interpretive Statements Sinus rhythm Electronically Signed On 05-02-2020 12:17:19 EST by Raúl GoffOceana Therapeuticsky [facility] [place], [facility] Incoming Cardiology Results From [employer] - 05/02/2020 12:18 PM EST [facility] Test Date: 2020-05-01 Pat Name: Cecilia Herrera Department: 1A5 Room: [facility] 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 Results may be 10%-15% lower than serum/plasma values. (CLIA ID [id number]) Performed By: #### B GLU #### [facility] [place] [address] Glucose [Mass/Vol] 125 mg/dL [address] Comment on above: Result Comment: Test performed by glucose meter. Results may be 10%-15% lower than serum/plasma values. (CLIA ID [id number]) Performed By: #### C MP3, HEMDF #### [facility] [address] [place] [address] Glucose [Mass/Vol] 213 mg/dL High [address] [facility] Comment on above: Result Comment: Test performed by glucose meter. Results may be 10%-15% lower than serum/plasma values. (CLIA ID [id number]) Performed By: #### C MP3, HEMDF #### [facility] [address] [place], [place] Glucose [Mass/Vol] 344 mg/dL High 70-100 [facility] Comment on above: Result Comment: Test performed by glucose meter. Results may be 10%-15% lower than serum/plasma values. (CLIA ID [id number]) Performed By: #### C MP3, HEMDF #### [facility] [address] [place], [place] Hemogram w/ Autodiffon 05-02 Abs Baso Cnt 0.0 10*3/uL Normal 0.0-0.2 [facility] Comment on above: Performed By: #### B GLU #### [address] [place], [place] Abs Neutrophile Cnt 8.6 10*3/uL High 1.8-7.0 [facility] Comment on above: Performed By: #### B GLU #### [address] [place] Basophils/100 WBC (Bld) 0.4 % Normal 0.0-2.0 [facility] Comment on above: Performed By: #### B GLU #### [address] [place] Eosinophils (Bld) [#/Vol] 0.0 10*3/uL Normal 0.0-0.5 [facility] Comment on above: Performed By: #### B GLU #### [address] [place] Eosinophils/100 WBC (Bld) 0.0 % Low 1.0-6.0 [facility] Comment on above: Performed By: #### B GLU #### [address] [place] Erythrocyte distribution width (RBC) [Ratio] 13.2 % Normal 11.5-14.5 [facility] Comment on above: Performed By: #### B GLU #### [facility] [address] [place], [place] Granulocytes/100 WBC (Bld) 86.0 % High 40.0-80.0 [facility] Comment on above: Performed By: #### B GLU #### [address] [place] Hematocrit (Bld) [Volume fraction] 34.1 % Low 35.0-47.0 [facility] Comment on above: Performed By: #### B GLU #### [address] [place] Hemoglobin (Bld) [Mass/Vol] 11.5 g/dL Low 11.7-16.0 [facility] Comment on above: Performed By: #### B GLU #### [address] [place] Lymphocytes (Bld) [#/Vol] 0.8 10*3/uL Low 1.0-4.3 [facility] Comment on above: Performed By: #### B GLU #### [address] [place] Lymphocytes/100 WBC (Bld) 8.3 % Low 20.0-40.0 [facility] Comment on above: Performed By: #### B GLU #### [address] [place] MCH (RBC) [Entitic mass] 31.8 pg Normal 26.0-34.0 [facility] Comment on above: Performed By: #### B GLU #### [address] [place] MCHC (RBC) [Mass/Vol] 33.6 % Normal 32.0-36.0 [facility] Comment on above: Performed By: #### B GLU #### [address] [place] MCV (RBC) [Entitic vol] 94.8 fL Normal 79.0-98.0 [facility] Comment on above: Performed By: #### B GLU #### [address] [place] [address] Monocytes (Bld) [#/Vol] 0.5 10*3/uL Normal 0.0-0.8 [facility] Comment on above: Performed By: #### B GLU #### [facility] [address] [place] [address] Monocytes/100 WBC (Bld) 5.3 % Normal 2.0-10.0 [facility] Comment on above: Performed By: #### B GLU #### [address] [place] [address] Platelet mean volume (Bld) [Entitic vol] 7.9 fL Normal 7.4-10.4 [facility] Comment on above: Performed By: #### B GLU #### [address] [address] Platelets (Bld) [#/Vol] 280 10*3/uL Normal 140-440 [facility] Comment on above: Performed By: #### B GLU #### [address] [place] [address] RBC (Bld) [#/Vol] 3.60 10*6/uL Low 3.80-5.20 [facility] Comment on above: Performed By: #### B GLU #### [address] [address] WBC (Bld) [#/Vol] 10.0 10*3/uL Normal 3.6-10.7 [facility] Comment on above: Performed By: #### B GLU #### [facility] [employer] [address] [address] POCT Glucoseon 05-02-2020 Glucose [Mass/Vol] 311 mg/dL High 70 - 100 mg/dL [place] Comment on above: Test performed by ucose meter. Results may be 10%-15% lower than serum/plasma values. (CLIA ID [id number]) Interpretation and review of laboratory results Abnormal [place] Test Performed by [facility] [address] [address] [place] Glucose [Mass/Vol] 128 mg/dL High 70 - 100 mg/dL [place] Comment on above: Test performed by gl ucose meter. Results may be 10%-15% lower than serum/plasma values. (CLIA ID [id number]) Interpretation and review of laboratory results Abnormal [place] Test Performed by [facility], [place] [address] [place] Glucose [Mass/Vol] 125 mg/dL High 70 - 100 mg/dL [place] Comment on above: Test performed by gl ucose meter. Results may be 10%-15% lower than serum/plasma values. (CLIA ID [id number]) Interpretation and review of laboratory results Abnormal [place] Test Performed by [facility], [facility] [place] [place] [id number] [place] [address] Glucose [Mass/Vol] 213 mg/dL High 70 - 100 mg/dL [place] Comment on above: Test performed by gl ucose meter. Results may be 10%-15% lower than serum/plasma values. (CLIA ID [id number]) Interpretation and review of laboratory results Abnormal [place] Test Performed by [facility], [place] [address] [place] Basic Metabolic Panelon 11-0 -2019 Calcium [Mass/Vol] 9.0 mg/dL Normal 8.4-10.4 [facility] Comment on above: Performed By: #### B GLU #### [address] [place] Glucose [Mass/Vol] 188 mg/dL High 70-100 [facility] Comment on above: Performed By: #### B GLU #### [address] [place] Urea nitrogen [Mass/Vol] 17 mg/dL Normal 7-20 [facility] Comment on above: Performed By: #### B GLU #### [address] [place] Anion gap [Moles/Vol] 7 Normal [facility] Comment on above: Performed By: #### B GLU #### [facility] [address] [place], [place] CO2 [Moles/Vol] 24 mmol/L Normal 22-30 [facility] Comment on above: Performed By: #### B GLU #### [facility] [address] [place], [place] Creatinine [Mass/Vol] 0.74 mg/dL Normal 0.52-1.25 [facility] Comment on above: Performed By: #### B GLU #### [facility] [address] [place], [place] GFR/1.73 sq M predicted among blacks MDRD (S/P/Bld) [Vol rate/Area] mL/min/{1.73_m2} Normal >60 [facility] Comment on above: Performed By: #### B GLU #### [facility] [address] [place], [place] GFR/1.73 sq M predicted among non-blacks MDRD (S/P/Bld) [Vol rate/Area] 82.0 mL/min/{1.73_m2} Normal >60 [facility] Comment on above: Result Comment: KDIG O guidelines provide the following GFR categories: Stage GFR(ml/min/1.73 m2) Terms G1 >=90 Normal or high G2 60-89 Mildly decreased* G3a 45-59 Mildly to moderately decreased G3b 30-44 Moderately to severely decreased G4 15-29 Severely decreased G5 <15 Kidney failure *Relative to young adult level. In the absence of evidence of kidney damage, neither GFR category G1 nor G2 fulfill the criteria for CKD. The CKD-EPI equation is validated in individuals 18 years of age and older. Currently the best equation for estimating glomerular filtration rate (GFR) from serum creatinine in children is the Bedside Bhatti equation. It is less accurate in patients with extremes of muscle mass, restriction of dietary protein, ingestion of creatine, extra-renal metabolism of creatinine, or treatment with medications that affect renal tubular creatinine secretion. Performed By: #### B GLU #### [facility] [address] [place], [place] Potassium [Moles/Vol] 4.6 mmol/L Normal 3.5-5.1 [facility] Comment on above: Result Comment: Slig htly hemolysed, interpret with caution. Performed By: #### B GLU #### [facility] [address] [place], [place] Chloride [Moles/Vol] 103 mmol/L Normal 98-107 [facility] Comment on above: Performed By: #### B GLU #### [facility] [address] [place], [place] Sodium [Moles/Vol] 135 mmol/L Normal 135-145 [facility] Comment on above: Performed By: #### B GLU #### [facility] [address] [place] Anion gap [Moles/Vol] 9 Normal [facility] Comment on above: Performed By: #### C MP3, HEMDF #### [facility] [address] [place], [place] Calcium [Mass/Vol] 9.0 mg/dL Normal 8.4-10.4 [facility] Comment on above: Performed By: #### C MP3, HEMDF #### [facility] [address] [place] CO2 [Moles/Vol] 23 mmol/L Normal 22-30 [facility] Comment on above: Performed By: #### C MP3, HEMDF #### [facility] [address] [place] Glucose [Mass/Vol] 243 mg/dL High 70-100 [facility] Comment on above: Performed By: #### C MP3, HEMDF #### [address] [place] Urea nitrogen [Mass/Vol] 19 mg/dL Normal 7-20 [facility] Comment on above: Performed By: #### C MP3, HEMDF #### [address] [place] Creatinine [Mass/Vol] 0.88 mg/dL Normal 0.52-1.25 [facility] Comment on above: Performed By: #### C MP3, HEMDF #### [address] [place] [address] GFR/1.73 sq M predicted among blacks MDRD (S/P/Bld) [Vol rate/Area] 77.1 mL/min/{1.73_m2} Normal >60 [facility] Comment on above: Performed By: #### C MP3, HEMDF #### [address] [place] [address] GFR/1.73 sq M predicted among non-blacks MDRD (S/P/Bld) [Vol rate/Area] 66.5 mL/min/{1.73_m2} Normal >60 [facility] Comment on above: Result Comment: KDIG O guidelines provide the following GFR categories: Stage GFR(ml/min/1.73 m2) Terms G1 >=90 Normal or high G2 60-89 Mildly decreased* G3a 45-59 Mildly to moderately decreased G3b 30-44 Moderately to severely decreased G4 15-29 Severely decreased G5 <15 Kidney failure *Relative to young adult level. In the absence of evidence of kidney damage, neither GFR category G1 nor G2 fulfill the criteria for CKD. The CKD-EPI equation is validated in individuals 18 years of age and older. Currently the best equation for estimating glomerular filtration rate (GFR) from serum creatinine in children is the Bedside Bhatti equation. It is less accurate in patients with extremes of muscle mass, restriction of dietary protein, ingestion of creatine, extra-renal metabolism of creatinine, or treatment with medications that affect renal tubular creatinine secretion. Performed By: #### C MP3, HEMDF #### [address] [place] Chloride [Moles/Vol] 102 mmol/L Normal 98-107 [facility] Comment on above: Performed By: #### C MP3, HEMDF #### [address] Potassium [Moles/Vol] 4.6 mmol/L Normal 3.5-5.1 [facility] Comment on above: Result Comment: Slig htly hemolysed, interpret with caution. Performed By: #### C MP3, HEMDF #### [facility] [address] [place] [address] Sodium [Moles/Vol] 134 mmol/L Low 135-145 [facility] Comment on above: Performed By: #### C MP3, HEMDF #### [facility] [address] [place] [address] Basic Metabolic Panel w/ Ref kary to MGon 05-01-2020 Anion gap [Moles/Vol] 7 mmol/L [place] Calcium [Mass/Vol] 9.0 mg/dL 8.4 - 10. 4 mg/dL [place] Chloride [Moles/Vol] 103 mmol/L 98 - 10 7 mmol/L [place] CO2 [Moles/Vol] 24 mmol/L 22 - 30 mmol/L [place] Creatinine [Mass/Vol] 0.74 mg/dL 0.52 - 1.25 mg/dL [place] EGFR IF NonAfrican Indian 82.0 mL/min >60 [place] Comment on above: KDIGO guidelines pro vide the following GFR categories: Stage GFR(ml/min/1.73 m2) Terms G1 >=90 Normal or high G2 60-89 Mildly decreased* G3a 45-59 Mildly to moderately decreased G3b 30-44 Moderately to severely decreased G4 15-29 Severely decreased G5 <15 Kidney failure *Relative to young adult level. In the absence of evidence of kidney damage, neither GFR category G1 nor G2 fulfill the criteria for CKD. The CKD-EPI equation is validated in individuals 18 years of age and older. Currently the best equation for estimating glomerular filtration rate (GFR) from serum creatinine in children is the Bedside Bhatti equation. It is less accurate in patients with extremes of muscle mass, restriction of dietary protein, ingestion of creatine, extra-renal metabolism of creatinine, or treatment with medications that affect renal tubular creatinine secretion. GFR/1.73 sq M predicted among blacks MDRD (S/P/Bld) [Vol rate/Area] mL/min/{1.73_m2} >60 mL/min [place] Glucose [Mass/Vol] 188 mg/dL High 70 - 100 mg/dL [place], [place] Interpretation and review of laboratory results Abnormal [place] Potassium [Moles/Vol] 4.6 mmol/L 3.5 - 5.1 mmol/L [place], [place] Comment on above: Slightly hemolysed, interpret with caution. Sodium [Moles/Vol] 135 mmol/L 135 - 145 mmol/L [place], [place] Urea nitrogen [Mass/Vol] 17 mg/dL 7 - 20 mg/d L [place], [place] Test Performed by [employer] [facility], [address] [place] [address] [place], [place] C-Reactive Proteinon 020 CRP [Mass/Vol] 148.9 mg/L High 0.0-6.0 [facility] Comment on above: Result Comment: . Performed By: #### C MP3, HEMDF #### [address] [address] CBCon 05-01-2020 Erythrocyte distribution width (RBC) [Ratio] 12.9 % 11.5 - 14.5 % [place], [place] Hematocrit (Bld) [Volume fraction] 36.2 % 35 - 47 % [place] Hemoglobin (Bld) [Mass/Vol] 12.2 g/dL 11.7 - 16 g/dL [place] MCH (RBC) [Entitic mass] 32.0 pg 26 - 34 pg [place] MCHC (RBC) [Mass/Vol] 33.8 % 32 - 36 % [place], [place] MCV (RBC) [Entitic vol] 94.7 fL 79 - 98 fL [place], [place] Platelet mean volume (Bld) [Entitic vol] 7.8 fL 7.4 - 10.4 fL [place], [place] Platelets (Bld) [#/Vol] 299 10*3/uL 140 - 440 10*3/uL [place] RBC (Bld) [#/Vol] 3.82 10*6/uL 3.8 - 5.2 10*6/uL [place] WBC (Bld) [#/Vol] 10.6 10*3/uL 3.6 - 10.7 10*3/uL [facility] [place], [place] Test Performed by [facility], [address] [place] [address] [facility], [place] CR Chest 1 View Frontalon CR Chest 1 View Frontal Patient Name: CECILIA HERRERA Diagnostic Radiology Exam Date/Time 05/01/2020 07:43:47 EST Exam CR Chest 1 View Frontal Ordering Physician MILLI GOFF Accession Number [id number] CPT4 Codes 11006 () Reason For Exam possible surgery Report PORTABLE CHEST X-RAY CLINICAL INDICATION: Preoperative examination A portable frontal view of the chest was obtained. COMPARISON: None FINDINGS: The cardiac silhouette is within normal limits. No focal consolidation is seen within the lungs. No pleural effusion or pneumothorax is identified. Degenerative changes of the thoracic spine are noted. IMPRESSION: No acute cardiopulmonary disease. Report Dictated on Final Dictated: 05/01/2020 8:07 am Dictating Physician: MD HALE JONATHAN R Signed Date and Time: 05/01/2020 8:08 am Signed by: MD HALE JONATHAN R Transcribed Date and Time: 05/01/2020 8:07 Normal [facility] CR Hand Complete 3+ Views Le fton 05-01-2020 CR Hand Complete 3+ Views Left Patient Name: CECILIA HERRERA Diagnostic Radiology Exam Date/Time 04/30/2020 22:05:07 EST Exam CR Hand Complete 3+ Views Left Ordering Physician [id number] ARANDA Accession Number [id number] CPT4 Codes 23582 () Reason For Exam Middle finger diffusely swollen. Report LEFT HAND THREE VIEWS CLINICAL INDICATION: Middle finger diffusely swollen. TECHNIQUE: Three views of the left hand. COMPARISON: None FINDINGS: Diffusely swollen third digit. There is near complete destruction of the distal phalanx, and ill-defined destruction throughout the middle phalanx. Severe degenerative changes at the first CMC joint. IMPRESSION: 1. Severely swollen third digit with severe bone destruction involving the distal phalanx to lesser extent involving the middle phalanx. Findings presumably related to osteomyelitis in the proper clinical setting. Report Dictated on Final Dictated: 04/30/2020 10:16 pm Dictating Physician: MD MEYER JOHN R Signed Date and Time: 04/30/2020 10:19 pm Signed by: MD MEYER JOHN R Transcribed Date and Time: 04/30/2020 10:16 Normal [facility] Glucose,Bedsideon 05-01-2020 Glucose [Mass/Vol] 305 mg/dL High 70-100 [facility] Comment on above: Result Comment: Test performed by glucose meter. Results may be 10%-15% lower than serum/plasma values. (CLIA ID [id number]) Performed By: #### C MP3, HEMDF #### [facility] [address] [place] [address] Glucose [Mass/Vol] 110 mg/dL High 70-100 [facility] Comment on above: Result Comment: Test performed by glucose meter. Results may be 10%-15% lower than serum/plasma values. (CLIA ID [id number]) Performed By: #### C MP3, HEMDF #### [facility] [address] [place] [address] Glucose [Mass/Vol] 93 mg/dL Normal 70-100 [facility] Comment on above: Result Comment: Test performed by glucose meter. Results may be 10%-15% lower than serum/plasma values. (CLIA ID [id number]) Performed By: #### C MP3, HEMDF #### [facility] [address] [place] [address] Glucose [Mass/Vol] 81 mg/dL Normal 70-100 [facility] Comment on above: Result Comment: Test performed by glucose meter. Results may be 10%-15% lower than serum/plasma values. (CLIA ID [id number]) Performed By: #### B GLU #### [facility] [address] [place] [address] Glucose [Mass/Vol] 121 mg/dL High 70-100 [facility], [place] Comment on above: Test performed by gl ucose meter. Results may be 10%-15% lower than serum/plasma values. (CLIA ID [id number]) Result Comment: Test performed by glucose meter. Results may be 10%-15% lower than serum/plasma values. (CLIA ID [id number]) Performed By: #### C MP3, HEMDF #### [address] Hemoglobin A1Con 05-01-2020 HbA1c (Bld) [Mass fraction] 123 mg/dL Normal [facility] Comment on above: Performed By: #### B GLU #### [place] [address] [place], [place] HbA1c (Bld) [Mass fraction] 5.9 % Normal 4.0-6.0 [facility] Comment on above: Result Comment: --Hg bA1C levels may not be accurate in patients who have renal disease, received recent blood transfusions, are anemic, or who have dyshemoglobinemia. Performed By: #### B GLU #### [address] [address] [place], [place] eAG 123 mg/dL [place], [place] HbA1c (Bld) [Mass fraction] 5.9 % 4 - 6 % [place] Comment on above: --HgbA1C levels may not be accurate in patients who have renal disease, received recent blood transfusions, are anemic, or who have dyshemoglobinemia. Test Performed by [address] [place], [place] Hemogramon 05-01-2020 Erythrocyte distribution width (RBC) [Ratio] 12.9 % Normal 11.5-14.5 [facility] Comment on above: Performed By: #### C MP3, HEMDF #### [address] Hematocrit (Bld) [Volume fraction] 36.2 % Normal 35.0-47.0 [facility] Comment on above: Performed By: #### C MP3, HEMDF #### [place] [address] [place], [place] Hemoglobin (Bld) [Mass/Vol] 12.2 g/dL Normal 11.7-16.0 [facility] Comment on above: Performed By: #### C MP3, HEMDF #### [place] [address] [address] [place], [place] MCH (RBC) [Entitic mass] 32.0 pg Normal 26.0-34.0 [facility] Comment on above: Performed By: #### C MP3, HEMDF #### [place] [address] [address] [place], [place] MCHC (RBC) [Mass/Vol] 33.8 % Normal 32.0-36.0 [facility] Comment on above: Performed By: #### C MP3, HEMDF #### [place] [address] [address] [place], [place] MCV (RBC) [Entitic vol] 94.7 fL Normal 79.0-98.0 [facility] Comment on above: Performed By: #### C MP3, HEMDF #### [place] [address] [address] [place], [place] Platelet mean volume (Bld) [Entitic vol] 7.8 fL Normal 7.4-10.4 [facility] Comment on above: Performed By: #### C MP3, HEMDF #### [place] [address] [address] [place], [place] Platelets (Bld) [#/Vol] 299 10*3/uL Normal 140-440 [facility] Comment on above: Performed By: #### C MP3, HEMDF #### [place] [address] [address] [place], [place] RBC (Bld) [#/Vol] 3.82 10*6/uL Normal 3.80-5.20 [facility] Comment on above: Performed By: #### C MP3, HEMDF #### [place] [address] [address] [place], [place] WBC (Bld) [#/Vol] 10.6 10*3/uL Normal 3.6-10.7 [facility] Comment on above: Performed By: #### C MP3, HEMDF #### [address] [address] Lactate, Sepsison 05-01-2020 Lactate [Moles/Vol] 1.3 mmol/L 0.7 - 2 mmol/L [place], [place] Test Performed by [facility], [address] [place] [address] [place], [place] Lactic Acid, Sepsison 2019 Lactate [Moles/Vol] 1.3 mmol/L Normal 0.7-2.0 [facility] Comment on above: Performed By: #### C MP3, HEMDF #### [facility] [address] [place] [address] Lactate [Moles/Vol] 1.2 mmol/L Normal 0.7-2.0 [facility] Comment on above: Performed By: #### C MP3, HEMDF #### [address] [address] Op Noteon 05-01-2020 Op Note [facility] GENERAL SURGERY [address] [facility] [address] Dept: [phone] Loc: [phone] Operative Report Patient Name: Cecilia Herrera Date of : 1950 Date of Surgery: 05/01/20 Location: [facility] Preoperative Diagnosis: 1. Left long finger osteomyelitis Postoperative Diagnosis: Same Procedure: 1. Ray amputation left long finger Surgeon: Riaz Remy MD 1st Assist: none 2nd Assist: none Implants: None Specimens Removed: Swab and tissue for culture Anesthesia: Mac and regional Local Anesthesia: 1% lidocaine for a total of 10ml Dorsal wrist block Tourniquet:: Brachium Estimated Blood Loss: 25ml Antibiotics: Scheduled on the floor Indications: Ms. Cecilia Herrera is a 70 y.o. year-old female that a several week history of worsening swelling pain of her left middle finger x-rays showed signs consistent with osteomyelitis. I have discussed with her, preoperatively, the complications, limitations, expectations, alternatives, and risks of surgical intervention which she has demonstrated understanding. She understood the particular risk of left long finger ray amputation. No guarantees were given or implied. After having all of her questions answered to her satisfaction, Ms. Cecilia Herrera has provided written informed consent to proceed. Please see previous notes for full operative discussion. Procedure: Cecilia Herrera was identified in the preoperative waiting area. her operative site was initialed and consent was reviewed. Final questions were answered. Ms. Cecilia Herrera was brought to the operating room and placed in the supine position. All bony prominences were well padded. The aforementioned anesthesia was administered. Antibiotics were confirmed to have been given. The operative extremity was prepped and draped in the usual sterile fashion. A surgical timeout was then performed with the patient's identification, the procedure to be performed being reviewed, verification that the patient had received preoperative antibiotics if indicated, and verification of the correct surgical side. The patient's ASA was verified by the nurse check embosser and the anesthesia staff. Fire risk was assessed. Bl[place] was used to exsanguinate the limb and the tourniquet was inflated to 250mm Hg. Incision over the third metacarpal was made on the dorsum and carried around through the second and third webspaces to the volar aspect of the metacarpal head of the third metacarpal. Incision was carried down the neurovascular bundle was identified the nerves and vessels were tracked distally ligated cauterized and allowed to retract. The incision was then carried on the dorsum straight down onto the third metacarpal once this was isolated incision was deepened over the volar surface just distal to metacarpal head and the skin was divided. Once the skin was divided volarly the third metacarpal periosteum was incised and elevated off utilizing a Damascus elevator at this point Hohmann retractors were placed on each side and a saw was used to divide the metacarpal and retracted distally. The interossei were removed off the volar surface of combination of Damascus elevator and monopolar cautery. Once the level of the MCP joint was identified the volar surface was incised through the flexor sheath. The flexor tendon was pulled distally there is some inflammatory fluid this was sampled with a swab the tendon was then divided and allowed to retract. At this point the wound was copiously irrigated out with normal saline the transverse metacarpal ligament was identified from the second fourth metacarpal head. Utilizing PDS sutures and this was approximated to bring the second and fourth metacarpals together. At this point the interossei muscles were isolated from the second and third webspace. Utilizing a Vicryl sutures these were reapproximated to fill the space. The tourniquet was let down a combination of direct pressure and cautery was used to achieve hemostasis. The wound was then closed in layers with iodoform gauze packed. Superficial nylon sutures were placed. The neighboring index and ring finger had good capillary refill. Xeroform gauze was placed on the incision and a well-padded volar resting splint was applied. Ms. Cecilia Herrera was awakened from anesthesia having tolerated the procedure without apparent complication and was taken to the recovery room in stable condition. [employer]AN follow up on cultures antibiotics per ID Keep arm elevated Takedown dressing removed packing begin soaks t.i.d. on Sunday on rounds pain control per primary Riaz Remy 05/01/2020 , 3:27 PM Normal [facility] Other[facility] 05-[facility]-2020 Interpretation and review of laboratory results Abnormal [employer], [place] Test Performed by [employer], [facility] [place] [address] [facility] Hospital[facility]strous[facility] B[facility] MEDICAL CENTERUrgent Career POCT Glucoseon 05-01-2020 Glucose [Mass/Vol] 344 mg/dL High 70 - 100 mg/dL [facility] [employer], [place] Comment on above: Test performed by gl ucose meter. Results may be 10%-15% lower than serum/plasma values. (CLIA ID [id number]) Interpretation and review of laboratory results Abnormal [employer], [place] Test Performed by [employer], [facility] [place] [address] [facility], [place] Glucose [Mass/Vol] 305 mg/dL High 70 - 100 mg/dL [facility] [employer], [place] Comment on above: Test performed by gl ucose meter. Results may be 10%-15% lower than serum/plasma values. (CLIA ID [id number]) Interpretation and review of laboratory results Abnormal [employer], [place] Test Performed by [employer], [address] [place] [address] [facility] Hospital[facility] [place], [place] Glucose [Mass/Vol] 110 mg/dL High 70 - 100 mg/dL [place], [place] Comment on above: Test performed by gl ucose meter. Results may be 10%-15% lower than serum/plasma values. (CLIA ID [id number]) Test Performed by [facility] [employer] [facility], [place] [address] [place], [place] Glucose [Mass/Vol] 93 mg/dL 70 - 100 mg/dL [place] Comment on above: Test performed by gl ucose meter. Results may be 10%-15% lower than serum/plasma values. (CLIA ID [id number]) Test Performed by [facility], [facility] [place], [place] [id number] [place] [address] Glucose [Mass/Vol] 81 mg/dL 70 - 100 mg/dL [place] Comment on above: Test performed by gl ucose meter. Results may be 10%-15% lower than serum/plasma values. (CLIA ID [id number]) Prothrombin Timeon 0 INR Coag (PPP) [Relative time] 1.0 Normal 0.9-1.1 [facility] Comment on above: Result Comment: Cliff mmended Anticoagulant Therapy: SEE BELOW ----- INR of 2.0 - 3.0 : - Prophylaxis of Venous Thrombosis (high-risk surgery) - Treatment of Venous Thrombosis - Treatment of Pulmonary Embolism (Includes tissue heart valves, Acute Myocardial Infarction to prevent systemic embolism, Valvular Heart Disease, and Atrial Fibrillation) ----- INR of 2.5 - 3.5 : - Mechanical Prosthetic Valves (high risk) - If oral anticoagulant therapy is used to prevent Myocardial Infarction Performed By: #### C MP3, HEMDF #### [facility] [employer] [facility] [address] [place] [address] PT Coag (PPP) [Time] 11.1 s Normal 9.0-12.0 [facility] [employer] [facility] Comment on above: Result Comment: . Performed By: #### C MP3, HEMDF #### [facility] [employer] [facility] [address] [place] [address] Protime-INRon 05-01-2020 INR Coag (PPP) [Relative time] 1.0 {INR} [place], [place] Comment on above: Recommended Anticoag ulant Therapy: SEE BELOW ----- INR of 2.0 - 3.0 : - Prophylaxis of Venous Thrombosis (high-risk surgery) - Treatment of Venous Thrombosis - Treatment of Pulmonary Embolism (Includes tissue heart valves, Acute Myocardial Infarction to prevent systemic embolism, Valvular Heart Disease, and Atrial Fibrillation) ----- INR of 2.5 - 3.5 : - Mechanical Prosthetic Valves (high risk) - If oral anticoagulant therapy is used to prevent Myocardial Infarction PT Coag (PPP) [Time] 11.1 s 9 - 12 s [place], [place] Comment on above: . Test Performed by [facility], [address] [place] [address] Sed Rateon 05-01-2020 Sed Rate 77 mm/h High 0-20 [facility] Comment on above: Performed By: #### C MP3, HEMDF #### [address] TS GELon 05-01-2020 TS GEL ABO Group: A Rh, Gel: POS Antibody Screen Gel: NEG Normal [facility] Comment on above: Performed By: #### B GLU #### [address] TYPE AND SCREENon 05-01-2020 Sodium [Moles/Vol] Negative [place], [place] Sodium [Moles/Vol] A [place] Sodium [Moles/Vol] Positive [place] Test Performed by [facility] [employer] [facility], [address] [place] [address] VANCOMYCIN, RANDOMon 020 Interpretation and review of laboratory results Abnormal [place] Vancomycin 7.4 ug/mL Low 15 - 20 ug/mL [place], [place] Comment on above: . Test Performed by [facility] [employer] [facility], [address] [place] [address] Vancomycinon 05-01-2020 Vancomycin 7.4 ug/mL Low 15.0-20.0 [facility] Comment on above: Result Comment: . Performed By: #### B GLU #### [address] [address] XR CHEST 1 VWon 05-01-2020 [facility] Incoming Radiology Results From [facility] - 05/01/2020 8:09 AM EST Patient Name: CECILIA HERRERA ---Diagnostic Radiology--- Exam Date/Time 05/01/2020 07:43:47 EST Exam CR Chest 1 View Frontal Ordering Physician GLORIAMILLI Colby Accession Number [id number] CPT4 Codes 72290 () Reason For Exam possible surgery Report PORTABLE CHEST X-RAY CLINICAL INDICATION: Preoperative examination A portable frontal view of the chest was obtained. COMPARISON: None FINDINGS: The cardiac silhouette is within normal limits. No focal consolidation is seen within the lungs. No pleural effusion or pneumothorax is identified. Degenerative changes of the thoracic spine are noted. IMPRESSION: No acute cardiopulmonary disease. Report Dictated on --- Final --- Dictated: 05/01/2020 8:07 am Dictating Physician: MD HALE JONATHAN R Signed Date and Time: 05/01/2020 8:08 am Signed by: MD HALE JONATHAN R Transcribed Date and Time: 05/01/2020 8:07 [place] Patient Name: CECILIA HERRERA ---Diagnostic Radiology--- Exam Date/Time 05/01/2020 07:43:47 EST Exam CR Chest 1 View Frontal Ordering Physician MILLI GOFF Accession Number [id number] CPT4 Codes 64654 () Reason For Exam possible surgery Report PORTABLE CHEST X-RAY CLINICAL INDICATION: Preoperative examination A portable frontal view of the chest was obtained. COMPARISON: None FINDINGS: The cardiac silhouette is within normal limits. No focal consolidation is seen within the lungs. No pleural effusion or pneumothorax is identified. Degenerative changes of the thoracic spine are noted. IMPRESSION: No acute cardiopulmonary disease. Report Dictated on --- Final --- Dictated: 05/01/2020 8:07 am Dictating Physician: MD HALE JONATHAN R Signed Date and Time: 05/01/2020 8:08 am Signed by: MD HALE JONATHAN R Transcribed Date and Time: 05/01/2020 8:07 [place], [place] Basic Metabolic Panelon 11-0 Anion gap [Moles/Vol] 9 mmol/L [place], [place] Calcium [Mass/Vol] 9.0 mg/dL 8.4 - 10. 4 mg/dL [place], [place] Chloride [Moles/Vol] 102 mmol/L 98 - 10 7 mmol/L [place] CO2 [Moles/Vol] 23 mmol/L 22 - 30 mmol/L [place] Creatinine [Mass/Vol] 0.88 mg/dL 0.52 - 1.25 mg/dL [place] EGFR IF NonAfrican Indian 66.5 mL/min >60 [place] Comment on above: KDIGO guidelines pro vide the following GFR categories: Stage GFR(ml/min/1.73 m2) Terms G1 >=90 Normal or high G2 60-89 Mildly decreased* G3a 45-59 Mildly to moderately decreased G3b 30-44 Moderately to severely decreased G4 15-29 Severely decreased G5 <15 Kidney failure *Relative to young adult level. In the absence of evidence of kidney damage, neither GFR category G1 nor G2 fulfill the criteria for CKD. The CKD-EPI equation is validated in individuals 18 years of age and older. Currently the best equation for estimating glomerular filtration rate (GFR) from serum creatinine in children is the Bedside Bhatti equation. It is less accurate in patients with extremes of muscle mass, restriction of dietary protein, ingestion of creatine, extra-renal metabolism of creatinine, or treatment with medications that affect renal tubular creatinine secretion. GFR/1.73 sq M predicted among blacks MDRD (S/P/Bld) [Vol rate/Area] 77.1 mL/min/{1.73_m2} >60 [place] Glucose [Mass/Vol] 243 mg/dL High 70 - 100 mg/dL [place] Interpretation and review of laboratory results Abnormal [place] Potassium [Moles/Vol] 4.6 mmol/L 3.5 - 5.1 mmol/L [place], [place] Comment on above: Slightly hemolysed, interpret with caution. Sodium [Moles/Vol] 134 mmol/L Low 135 - 145 mmol/L [place] Urea nitrogen [Mass/Vol] 19 mg/dL 7 - 20 mg/d L [place] Test Performed by [address] [address] [place], [place] C-Reactive Proteinon 020 CRP [Mass/Vol] 148.9 mg/L High 0 - 6 mg/L [place], [place] Comment on above: . Interpretation and review of laboratory results Abnormal [place] Test Performed by [facility], [address] [place] [address] [place], [place] ED Provider Noteon 0 ED Provider Note Emergency Department Encounter [facility] EMERGENCY DEPT Patient: Cecilia Herrera : 1950 Date of Evaluation: 04/30/2020 ED Supervising Physician: Carlton Vargas DO I independently examined and evaluated Cecilia Herrera. In brief, Cecilia Herrera is a 70 y.o. female that presents to the emergency department as a transfer from [place] for evaluation of a hand infection. She is given IV antibiotics in the doctor's office yesterday, told to come back this morning. Got another infusion of the Emergency Room [place] and was transferred here by private vehicle. Focused exam: Massive swelling of the third digit with associated swelling of the dorsum of the hand. Brief ED course/MDM: Orthopedics consult. All diagnostic, treatment, and disposition decisions were made by myself in conjunction with the CASSANDRA. For all further details of the patient's emergency department visit, please see their documentation. (Please note that portions of this note may have been completed with a voice recognition program. Efforts were made to edit the dictations but occasionally words are mis-transcribed.) Carlton Vargas DO [employer] Carlton Vargas DO 04/30/20 2237 Normal [facility] ED Provider Note Emergency Department Encounter [facility] EMERGENCY DEPT Patient: Cecilia Herrera : 1950 Date of Evaluation: 04/30/2020 ED Provider: PALMA Miller As the [id number], I performed a medical screening history and physical exam on this patient. HISTORY OF PRESENT ILLNESS In brief, Cecilia Herrera is a 70 y.o. female that presents for evaluation of diffuse swelling to her left middle digit that has been worsening over the past week. She states it has been swollen since roughly Sunday. She was seen at [place] [facility] twice and the first time was given Zosyn and then today vancomycin and was sent here for evaluation. She is a diabetic.. PHYSICAL EXAM ED Triage Vitals [04/30/202051] Enc Vitals Group BP 126/75 Pulse 103 Resp 20 Temp 97.9 ?F (36.6 ?C) Temp Source Temporal SpO2 99 % Weight 279 lb (126.6 kg) Height Head Circumference Peak Flow Pain Score Pain Loc Pain Edu? Excl. in GC? On brief exam, right middle digit is diffusely swollen. It is nontender to palpation as the patient states it is numb. It is held in a passive extended position. There is no pain to palpation along the flexor tendon. 2+ radial pulses. Regular rate and rhythm with no murmurs rubs or gallops. No adventitious lung sounds.. We will initiate diagnostics/treatment s as indicated and place in main ED as soon as available. PALMA [facility] [employer] PALMA Miller 04/30/202058 Normal [facility] Hemogram (CBC) w/Auto Diffon 04-30-2020 Absolute Baso # 0.0 10*3/uL 0 - 0.2 10*3/uL [place], [place] Absolute Neut # 12.0 10*3/uL High 1.8 - 7 10*3/uL [place] Hemogram w/ Autodiffon 04-30 Abs Baso Cnt 0.0 10*3/uL Normal 0.0-0.2 [facility] Comment on above: Performed By: #### B GLU #### [address] Abs Neutrophile Cnt 12.0 10*3/uL High 1.8-7.0 [facility] Comment on above: Performed By: #### B GLU #### [address] Basophils/100 WBC (Bld) 0.2 % Normal 0.0-2.0 [place], [place] Comment on above: Performed By: #### B GLU #### [place] [address] [address] [place], [place] Eosinophils (Bld) [#/Vol] 0.1 10*3/uL Normal 0.0-0.5 [place] Comment on above: Performed By: #### B GLU #### [address] [address] [place], [place] Eosinophils/100 WBC (Bld) 0.5 % Low 1.0-6.0 [place] Comment on above: Performed By: #### B GLU #### [address] [address] [address] [place], [place] Erythrocyte distribution width (RBC) [Ratio] 13.0 % Normal 11.5-14.5 [place] Comment on above: Performed By: #### B GLU #### [address] [address] [address] [place], [place] Granulocytes/100 WBC (Bld) 84.0 % High 40.0-80.0 [place] Comment on above: Performed By: #### B GLU #### [address] [address] [address] [place], [place] Hematocrit (Bld) [Volume fraction] 38.0 % Normal 35.0-47.0 [place] Comment on above: Performed By: #### B GLU #### [address] [address] [address] [place], [place] Hemoglobin (Bld) [Mass/Vol] 12.7 g/dL Normal 11.7-16.0 [place] Comment on above: Performed By: #### B GLU #### [address] [address] [address] [place], [place] Lymphocytes (Bld) [#/Vol] 1.3 10*3/uL Normal 1.0-4.3 [place] Comment on above: Performed By: #### B GLU #### [address] [place] [address] Lymphocytes/100 WBC (Bld) 9.3 % Low 20.0-40.0 [place] Comment on above: Performed By: #### B GLU #### [address] [place] [address] MCH (RBC) [Entitic mass] 31.9 pg Normal 26.0-34.0 [place] Comment on above: Performed By: #### B GLU #### [address] [place] [address] MCHC (RBC) [Mass/Vol] 33.4 % Normal 32.0-36.0 [place], [place] Comment on above: Performed By: #### B GLU #### [address] [place] [address] MCV (RBC) [Entitic vol] 95.4 fL Normal 79.0-98.0 [place], [place] Comment on above: Performed By: #### B GLU #### [address] [place] [address] Monocytes (Bld) [#/Vol] 0.9 10*3/uL High 0.0-0.8 [place] Comment on above: Performed By: #### B GLU #### [address] [place] [address] Monocytes/100 WBC (Bld) 6.0 % Normal 2.0-10.0 [place] Comment on above: Performed By: #### B GLU #### [address] [place] [address] Platelet mean volume (Bld) [Entitic vol] 7.9 fL Normal 7.4-10.4 [place] Comment on above: Performed By: #### B GLU #### [address] [place] [address] Platelets (Bld) [#/Vol] 311 10*3/uL Normal 140-440 [place] Comment on above: Performed By: #### B GLU #### [facility] [address] [place] [address] RBC (Bld) [#/Vol] 3.98 10*6/uL Normal 3.80-5.20 [place] Comment on above: Performed By: #### B GLU #### [address] [place] [place] [address] WBC (Bld) [#/Vol] 14.3 10*3/uL High 3.6-10.7 [place] Comment on above: Performed By: #### B GLU #### [address] [place] [address] Lactate, Sepsison 04-30-2020 Lactate [Moles/Vol] 1.2 mmol/L 0.7 - 2 mmol/L [place] Test [facility] [id number] [place] [address] Otheron 04-30-2020 Interpretation and review of laboratory results Abnormal [place], [place] Test Performed by [facility] [address] [address] [place] Sedimentation Rateon 020 Sed Rate 77 mm/h High 0 - 20 mm/h [place] XR HAND LEFT (MIN 3 VIEWS)on 04-30-2020 Patient Name: CECILIA HERRERA ---Diagnostic Radiology--- Exam Date/Time 04/30/2020 22:05:07 EST Exam CR Hand Complete 3+ Views Left Ordering Physician [id number] ARANDA Accession Number [id number] CPT4 Codes 62946 () Reason For Exam Middle finger diffusely swollen. Report LEFT HAND THREE VIEWS CLINICAL INDICATION: Middle finger diffusely swollen. TECHNIQUE: Three views of the left hand. COMPARISON: None FINDINGS: Diffusely swollen third digit. There is near complete destruction of the distal phalanx, and ill-defined destruction throughout the middle phalanx. Severe degenerative changes at the first CMC joint. IMPRESSION: 1. Severely swollen third digit with severe bone destruction involving the distal phalanx to lesser extent involving the middle phalanx. Findings presumably related to osteomyelitis in the proper clinical setting. Report Dictated on --- Final --- Dictated: 04/30/2020 10:16 pm Dictating Physician: MD MEYER JOHN R Signed Date and Time: 04/30/2020 10:19 pm Signed by: MD MEYER JOHN R Transcribed Date and Time: 04/30/2020 10:16 [facility] [place], [facility] Incoming Radiology Results From [facility] - 04/30/2020 10:20 PM EST Patient Name: CECILIA HERRERA ---Diagnostic Radiology--- Exam Date/Time 04/30/2020 22:05:07 EST Exam CR Hand Complete 3+ Views Left Ordering Physician [id number] NEIDA CARDOSO Accession Number [id number] CPT4 Codes 04528 () Reason For Exam Middle finger diffusely swollen. Report LEFT HAND THREE VIEWS CLINICAL INDICATION: Middle finger diffusely swollen. TECHNIQUE: Three views of the left hand. COMPARISON: None FINDINGS: Diffusely swollen third digit. There is near complete destruction of the distal phalanx, and ill-defined destruction throughout the middle phalanx. Severe degenerative changes at the first CMC joint. IMPRESSION: 1. Severely swollen third digit with severe bone destruction involving the distal phalanx to lesser extent involving the middle phalanx. Findings presumably related to osteomyelitis in the proper clinical setting. Report Dictated on --- Final --- Dictated: 04/30/2020 10:16 pm Dictating Physician: MD MEYER JOHN R Signed Date and Time: 04/30/2020 10:19 pm Signed by: MD MEYER JOHN R Transcribed Date and Time: 04/30/2020 10:16 [facility]PHINon 10-07-2018 6-MARY ANNE TOXASSURE Negative Normal () [facility] Comment on above: Performed By: #### L 600.56054, L600.38839 #### [address] [address] # [phone] CONFIRMATION 6M Not Detected Normal () [facility] Comment on above: Result Comment: INFC E Result Units: ng/mg creat Testing Threshold: 10 ng/mL This test was developed and its performance characteristics determined by [facility]. It has not been cleared or approved by the Food and Drug Administration. Performed At: [employer] [address] [place] [address] [id number] Diego Albarran [facility] [id number] Performed By: #### L 600.44810, L600.64735 #### [facility] [address] [place] [address] # [phone] TOXASSURE COMPRon 10-07-2018 TOXASSURE COMPR FINAL Normal () [facility] Comment on above: Result Comment: ======= TOXASSURE COMP DRUG ANALYSIS,UR 6-Acetylmorphine,ToxAssure Add CREATININE,URINE ======= Test Result Flag Units Drug Present and Declared for Prescription Verification Hydrocodone 650 EXPECTED ng/mg creat Hydromorphone 38 EXPECTED ng/mg creat Norhydrocodone 274 EXPECTED ng/mg creat Sources of hydrocodone include scheduled prescription medications. Hydromorphone and norhydrocodone are expected metabolites of hydrocodone. Hydromorphone is also available as a scheduled prescription medication. Drug Present not Declared for Prescription Verification Gabapentin PRESENT UNEXPECTED Acetaminophen PRESENT UNEXPECTED ======= Test Result Flag Units Ref Range Creatinine 165 mg/dL >=20 ======= Declared Medications: The flagging and interpretation on this report are based on the following declared medications. Unexpected results may arise from inaccuracies in the declared medications. Note: The testing scope of this panel includes these medications: Hydrocodone ======= For clinical consultation, please call . ======= Performed By: #### L 600.14135, L600.27983 #### [facility] [address] [place] [address] # [phone] Culture, urine Bacteria identified Cx Nom (U) Positive [facility] Work Phone: Vital Signs Date Time Vital Sign Value Performing Clinician Facility 11-01-2021 08:34-0400 Body height 165.1 cm [facility] Work Phone: 05-05-2020 17:08-0500 Body Temperature 97.59 [degF] Carlton [facility], [place] 05-05-2020 17:08-0500 BP Diastolic 99 mm[Hg] [facility] [place] , [place] 05-05-2020 17:08-0500 BP Systolic 165 mm[Hg] Carlton [facility] [place] , [place] 05-05-2020 17:08-0500 Pulse (Heart Rate) 82 /min Carlton Cosby [facility] [place], [place] 05-05-2020 17:08-0500 Pulse Oximetry 97 % Carlton Cosby [facility] [place] , [place] 05-05-2020 17:08-0500 Respiratory Rate 20 /min Carlton Cosby [facility] [place], [place] 05-03-2020 15:04-0500 Height 165.1 cm Carlton Cosby [facility] , [place] 05-01-2020 02:30-0500 BMI (Body Mass Index) 46.43 kg/m2 Carlton Cosby [facility], [place] 05-01-2020 02:30-0500 Body weight 126.55 kg Carlton Cosby [facility] , [place] Encounters Encounter Date Encounter Type Care Provider Facility Start: 01-09-2025 End: 01-09-[address] Ankush Rios MD Work Phone: -Laboratory Phy Office 3rd Flr Start: 01-09-2025 End: 01-09-[address] Ankush Rios MD -Laboratory Phy Office 3rd Flr Start: 01-09-2025 End: 01-09-2025 ambulatory Ankush Chi Gabriel Facility:[facility] Start: 08-06-2024 End: 08-06-2024 ambulatory Ankush Chi Gabriel Facility:[facility] Start: 04-09-2024 End: 04-09-2024 ambulatory Ankush Chi Gabriel Facility:[facility] Start: 03-06-2024 End: 03-06-2024 ambulatory Ankush Chi Gabriel Facility:[facility] Start: 02-04-2024 ambulatory Ankush Chi Gabriel Facility:[facility] Start: 10-04-2023 End: 10-04-2023 ambulatory [facility] Work Phone: Start: 10-04-2023 End: 10-04-2023 Patient encounter procedure [facility]-Laboratory, Phy Office 3rd Flr Start: 12-06-2022 End: 12-06-2022 ambulatory [facility] Work Phone: Start: 12-06-2022 End: 12-06-2022 Patient encounter procedure [facility]-Laboratory Start: 07-18-2022 End: 07-18-2022 ambulatory [facility] Work Phone: Start: 07-18-2022 End: 07-18-2022 Patient encounter procedure [facility]-Radiology, [facility] Start: 07-13-2022 End: 07-13-2022 ambulatory [facility] Work Phone: Start: 07-13-2022 End: 07-13-2022 Patient encounter procedure [facility]-Laboratory, Phy Office 3rd Flr Start: 02-24-2022 End: 02-24-2022 ambulatory [facility] Work Phone: Start: 02-24-2022 End: 02-24-2022 Discharged Recurring [facility]-Physical Therapy Start: 02-22-2022 Registered Recurring [facility]-Physical Therapy Start: 02-17-2022 End: 02-17-2022 ambulatory [facility] Work Phone: Start: 02-17-2022 End: 02-17-2022 Patient encounter procedure [facility]-Laboratory, Specimen Start: 01-04-2022 Registered Recurring [facility]-Physical Therapy Start: 01-02-2022 End: 01-02-2022 Patient encounter procedure [facility]-Laboratory Start: 11-30-2021 End: 11-30-2021 [facility] Start: 11-01-2021 End: 11-01-2021 Patient encounter procedure [facility]-Outpatient Breast Imaging Start: 09-23-2021 End: 09-23-2021 Patient encounter procedure [facility]-Laboratory, Phy Office 3rd Flr Start: 05-18-2020 End: 05-18-2020 Subsequent hospital visit by physician Riaz Remy Work Phone: [facility] Radiology Start: 04-30-2020 End: 05-05-2020 Evaluation and management of inpatient Carlton Albarran Sam Work Phone: [facility] MED [facility] Comment on above: Osteomyelitis of lef t hand, unspecified type (HCC) (Primary Dx) Procedures Date Procedure Procedure Detail Performing Clinician Start: 01-09-2025 Urine microalbumin/creatinine ratio measurement Dr. Ankush Rios MD Work Phone: Start: 01-09-2025 Vitamin D, 25-hydrox y measurement Dr. Ankush Rios MD Work Phone: Comment on above: Vitamin D StatusDefi ciency: <20 ng/mL (50nmol/L)Insufficiency: 20-30 ng/mL (50-75 nmol/L)Sufficiency: 30-100 ng/mL (75-250 nmol/L)Toxicity: >100 ng/mL (>250 nmol/L) Start: 07-18-2022 X-ray of lumbar spin e, two or three views Start: 11-01-2021 Dual energy X-ray absorptiometry Start: 11-01-2021 Screening mammography Start: 05-08-2020 Microscopic examinat ion of blood, culture Comment on above: Order Comment: Speci men Source Comment:Blood Performed By: #### B GLU #### [facility] [address] [place] [phone] Start: 05-06-2020 Microscopic examinat ion of blood, culture Comment on above: Order Comment: Speci men Source Comment:Blood Performed By: #### B GLU #### [facility] [address] [place] [phone] Start: 05-05-2020 Radiologic exam ches t single view Yeny Castelan Work Phone: Start: 05-05-2020 Gluc bld gluc mntr d ev cleared fda spec home use Srinivasa Rhodes Work Phone: Start: 05-05-2020 Gluc bld gluc mntr d ev cleared fda spec home use Srinivasa Rhodes Work Phone: Start: 05-05-2020 Gluc bld gluc mntr d ev cleared fda spec home use Srinivasa Rhodes Work Phone: Start: 05-04-2020 Gluc bld gluc mntr d ev cleared fda spec home use Srinivasa Rhodes Work Phone: Start: 05-04-2020 Gluc bld gluc mntr d ev cleared fda spec home use Srinivasa Rhodes Work Phone: Start: 05-04-2020 Gluc bld gluc mntr d ev cleared fda spec home use Srinivasa Rhodes Work Phone: Start: 05-04-2020 Gluc bld gluc mntr d ev cleared fda spec home use Srinivasa Rhodes Work Phone: Start: 05-04-2020 Echo tthrc r-t 2d w/wom-mode compl spec&colr d CharlesLd Parsons Work Phone: Start: 05-04-2020 Gluc bld gluc mntr d ev cleared fda spec home use Srinivasa Rhodes Work Phone: Start: 05-04-2020 Drug screen quantita tive vancomycin Atavalerie Srivastavaan Work Phone: Start: 05-03-2020 Gluc bld gluc mntr d ev cleared fda spec home use Srinivasa Rhodes Work Phone: Start: 05-03-2020 Gluc bld gluc mntr d ev cleared fda spec home use Srinivasa Rhodes Work Phone: Start: 05-03-2020 Gluc bld gluc mntr d ev cleared fda spec home use Srinivasa Rhodes Work Phone: Start: 05-03-2020 Microscopic examinat ion of blood, culture Comment on above: Order Comment: Speci men Source Comment:Blood Performed By: #### B GLU #### [address] [address] Start: 05-03-2020 Gluc bld gluc mntr d ev cleared fda spec home use Srinivasa Rhodes Work Phone: Start: 05-03-2020 Blood count complete auto&[facility] dif[facility]ntl [facility]: Start: 05-03-2020 [facility]o lic panel [facility] Work Phone: Start: 05-02-2020 Gluc bld gluc mntr d ev cleared fda spec home use Srinivasa Rhodes Work Phone: Start: 05-02-2020 Gluc bld gluc mntr d ev cleared fda spec home use Carlton Vargas Work Phone: Start: 05-02-2020 Gluc bld gluc mntr d ev cleared fda spec home use Srinivasa Rhodes Work Phone: Start: 05-02-2020 Gluc bld gluc mntr d ev cleared fda spec home use Srinivasa Rhodes Work Phone: Start: 05-02-2020 Basic metabolic pane l calcium total [facility] Work Phone: Start: 05-02-2020 Blood count complete auto&auto difrntl wbc [facility] Work Phone: Start: 05-01-2020 Gluc bld gluc mntr d ev cleared fda spec home use Srinivasa Rhodes Work Phone: Start: 05-01-2020 Gluc bld gluc mntr d ev cleared fda spec home use Srinivasa Rhodes Work Phone: Start: 05-01-2020 Gluc bld gluc mntr d ev cleared fda spec home use Srinivasa Rhodes Work Phone: Start: 05-01-2020 OPERATIVE REPORT 3m Sca nning Start: 05-01-2020 Gluc bld gluc mntr d ev cleared fda spec home use Srinivasa Rhodes Work Phone: Start: 05-01-2020 Gluc bld gluc mntr d ev cleared fda spec home use Srinivasa Rhodes Work Phone: Start: 05-01-2020 Gluc bld gluc mntr d ev cleared fda spec home use Srinivasa Rhodes Work Phone: Start: 05-01-2020 Chest x-ray 1 view frontal Milli Goff Work Phone: Start: 05-01-2020 BASIC METABOLIC PANE L W/ REFLEX TO MG FOR LOW K Srinivasa Rhodes Work Phone: Start: 05-01-2020 Blood count complete automated Srinivasa Rhodes Work Phone: Start: 05-01-2020 Blood typing serologic abo Milli Goff Work Phone: Start: 05-01-2020 Drug screen quantita tive vancomycin Srinivasa Rhodes Work Phone: Start: 05-01-2020 Hemoglobin glycosylated a1c Srinivasa Rhodes Work Phone: Start: 05-01-2020 LACTATE, SEPSIS Srinivasa Rhodes Work Phone: Start: 05-01-2020 Prothrombin time Milli Goff Work Phone: Start: 05-01-2020 Ecg routine ecg w/le ast 12 lds w/i&r Milli Goff Work Phone: Start: 04-30-2020 CULTURE, BLOOD 1 Nelson Gutierrez Work Phone: Start: 04-30-2020 Culture bacterial bl ood aerobic w/id isolates Freddy Gutierrez Work Phone: Start: 04-30-2020 LACTATE, SEPSIS Srinivasa Rhodes Work Phone: Start: 04-30-2020 Radex hand minimum 3 views Neida Delgado Anita Work Phone: Start: 04-30-2020 Basic metabolic pane l calcium total Neida Delgado Justomasonandriy Work Phone: Start: 04-30-2020 Blood count complete auto&auto difrntl wbc Neida Delgado Justomasonandriy Work Phone: Start: 04-30-2020 C-reactive protein Andr marley Delgado Anita Work Phone: Start: 04-30-2020 Sedimentation rate r bc automated Neida Delgado Anita Work Phone: Urine culture Plan of Treatment Date Care Activity Detail Author Start: 05-03-2021 Creatinine measurement Creatinine mo [place]itoring [place], [place] Start: 05-03-2021 Potassium monitoring Potassium monit oring [place] Start: 05-01-2021 HbA1c (Bld) [Mass fraction] A1C test (Diabetic or Prediabetic) [place] Start: 06-08-2020 End: 06-08-2020 Office Visit 06/08/2020 Office Visit Orthopedic Surgery SyedRiaz MD [address] [facility] [address] [place] [address] [facility] Joni Start: 05-03-2020 Annual Wellness Visi t (AWV) Annual Wellness Visit (AWV) [place] Start: 02-24-2020 Influenza vaccination Flu vaccine (# 1) [place] Start: 2015 Pneumococcal 65+ yea rs Vaccine (1 of 1 - PPSV23) Pneumococcal 65+ years Vaccine (1 of 1 - PPSV23) [place] Start: 2005 Screening for osteoporosis DEXA (modify frequency per FRAX score) [place] Start: 2000 Screening for malign ant neoplasm of breast Breast cancer screen [place], [place] Start: 2000 Screening for malign ant neoplasm of colon Colon cancer screen colonoscopy [place], [place] Start: 2000 Shingles Vaccine (1 of 2) Shingles Vaccine (1 of 2) [place] Start: 1969 DTaP/Tdap/Td vaccine (1 - Tdap) DTaP/Tdap/Td vaccine (1 - Tdap) [place], [place] Start: 1960 Lipid panel Lipid screen [place], [place] Start: 1950 Hepatitis C screening Hepatitis C sc reen [place] Culture, Anaerobic a nd Aerobic [place] Culture, Blood 1 [place], [place] Culture, Blood 2 Culture, Blood 2 Microbiology Routine 05/03/2020 4:43 AM EST [place] End: 05-01-2020 HbA1c (Bld) [Mass fraction] [place] Comment on above: One Time for 1 Occur rences starting 05/01/2020 until 05/01/2020 HbA1c (Bld) [Mass fraction] [place] Oxygen therapy [[facility] Data Set] Initiate Oxygen Therapy Protocol Respiratory Care Routine Daily until discontinued starting 05/01/2020 [place] Comment on above: Daily until disconti nued starting 05/01/2020 End: 05-01-2020 PBP2A TEST FOR S. AUREUS PBP2A TEST FOR S. AUREUS Lab Routine Once for 1 Occurrences starting 05/01/2020 until 05/01/2020 [place] Comment on above: Once for 1 Occurrenc es starting 05/01/2020 until 05/01/2020 PBP2A TEST FOR S. AUREUS PBP2A TEST FOR S. AUREUS Lab Routine 05/01/2020 2:22 PM [place], [place] POCT glucose [place], [place] Comment on above: 4X Daily (AC & HS) u ntil discontinued starting 05/01/2020 As Needed until disc ontinued starting 05/01/2020 End: 05-18-2020 XR HAND LEFT (MIN 3 VIEWS) XR HAND LEFT (MIN 3 VIEWS) Imaging Routine Once for 1 Occurrences starting 05/18/2020 until 05/18/2020 [place] Comment on above: Once for 1 Occurrenc es starting 05/18/2020 until 05/18/2020 XR HAND LEFT (MIN 3 VIEWS) XR HAND LEFT (MIN 3 VIEWS) Imaging Routine 05/18/2020 1:22 PM [place] Immunizations Immunization Date Immunization Notes Care Provider Aida wallis 12-18-2013 tetanus toxoid, redu angelika diphtheria toxoid, and acellular pertussis vaccine, adsorbed [facility] Payers Date Payer Category Payer Private Health Insurance [id number] 2024 Private Health Insurance [id number] [id number] Self-pay [id number] 2024 Private Health Insurance [id number] 2016 Medicare [id number] Medicaid [id number] Medicare [id number] Unknown [id number] Unknown [id number] Unknown [id number] [id number] Unknown [id number] Unknown [id number] Social History Date Type Detail Facility Start: 05-01-2020 End: 05-18-2020 Tobacco smoking status NHIS Light tobacco smoker [place] Start: 05-01-2020 End: 05-18-2020 Alcohol intake Ex-drinker (finding) [facility] Y Sex Assigned At Not on file [place] Exposure to SARS-CoV -2 (event) Not sure [place] Start: 05-18-2020 Tobacco use and exposure Never used [place] Start: 04-30-2020 End: 04-30-2020 Tobacco smoking status SCIS Unknown if ever smoked [facility] Start: 04-30-[address] [facility] Start: 04-30-[address] [facility] Start: 1950 Sex Assigned At Female W [facility] Start: 04-30-2020 Tobacco smoking stat us SCIS Smokes tobacco daily (finding) [facility] Evaluation note Note Date & Type Note Facility Evaluation note No assessment information availa ble [facility] Work Phone: Reason for referral (narrative) Note Date & Type Note Facility Reason for referral (narrative) No reason for referral information available [facility] Work Phone: Summary Purpose Family History No Family History Records FoundNo Family History Records FoundNo Family History Records FoundNo Family History Records Found Advance Directives No Advanced Directives Records FoundLatest Code Status on File Code Status Date Activated Date Inactivated Comments Full Code 05/01/2020 1:53 AM Latest Code Status on File Code Status Date Activated Date Inactivated Comments Full Code 05/01/2020 1:53 AM 05/05/2020 10:53 PM Advance Directive Response Recorded Date/ Time Living Will No April 30 10:27am Power of Accounting Associate No April 30, 2020 10:27am Advance Directive Response Recorded Date/ Time Living Will No April 30 9:27am Power of Accounting Associate No April 30, 2020 9:27am Hospital Course Note Discharge Summary Cecilia Herrera : 1950 ADMIT DATE: 04/30/2020 DISCHARGE DATE: 05/05/2020 PRIMARY CARE PHYSICIAN: No primary care provider on file. VISIT STATUS: Admission CODE STATUS: Full Code DISCHARGE DIAGNOSES: Active Problems: Osteomyelitis (HCC) Staphylococcus aureus sepsis (HCC) Resolved Problems: * No resolved hospital problems. * HOSPITAL COURSE: The patient is a 70 y.o. female who presents with CC of left 3rd digit pain, swelling of left hand for the past several weeks however worsening in the past 3 days. Unsure of initial trauma/event. Was seen by PCP and given topical antibiotic which has not been effective. Hx significant for IDDM which she describes as not well controlled. Pt has been administered empiric Vancomycin/Zosyn x2 prior to arrival here at [facility]. Denies fever, chills - Evaluated by Ortho specialty in ED, who after reviewing Pt and imaging recommends amputation of digit d/t osteomyelitis - Reportedly has (+) MRSA wound Cx - (+) Leukocyto (more content not included)... Discharge Instructions * Discharge Instr - Lab* Leeanne Ayers RN - 05/05/2020 2:29 PM EST Your physician has ordered skilled home care services for you. Your home care will be provided by: [facility] [phone] * Additional Instructions* Giles Montano MD - 05/03/2020 Orthopaedic Surgery Discharge Instructions: Do not bear weight in your left upper extremity Keep your splint/dressing clean, dry, and intact. Do not shower with splint on. Do not get splint wet Take medications as prescribed Call Dr. Remy's office to schedule a follow-up appointment * Attachments The following attachments cannot be sent through Care Everywhere. * PICC (Peripherally Inserted Central Catheter) (Stateless) documented in this encounter History of Present Illness * Concepcion Badillo RN - 05/05/2020 6:21 PM EST PICC dressing remains C/D/I. Flushed and Vanc infusion. Discharge instructions reviewed, denies questions or concerns at the present time. PICC and Dressing teaching completed. * Concepcion Badillo RN - 05/05/2020 2:22 PM EST Attempted to hang Vanc dose at this time however IV leaking at this time. Paged Cecy with PICC team who states that they will come as soon as they are finished in [facility].patient ok with this at this time. 1615 patient very upset about line explained to patient that Dr. Castelan is aware of need for PICC and will be in as soon as possible to place line. Given patients limited access placing IV would likely be in way of PICC placement. * Eleni Joseph, OT - 05/05/2020 7:51 AM EST Occupational Therapy OT order received. Will put pt on schedule for OT eval. Eleni Joseph OTR/L * Deandra Freed RN - 05/05/2020 6:09 AM EST Patient's morning soak and dressing were performed. Patient tolerated. Will continue to monitor. * Deandra Freed RN - 05/04/2020 9:00 PM EST Patient refusing nightly soak. Patient states she does not want to soak her hand until morning. Will continue to monitor. * Sabrina Parsons MD - 05/04/2020 6:49 PM EST [facility] - Infectious Diseases Attending Progress Note Subjective: No acute events- afebrile, no more episodes of erythema with IV infusion(slowed down), pain to handcontrolled. Keeping arm elevated. Objective: Vitals: Patient Vitals for the past 24 hrs: BP Temp Temp src Pulse Resp SpO2 05/04/20 1738 (!) 145/69 97.8 F (36.6 C) Temporal 79 20 97 % 05/04/20 1428 74 05/04/20 0815 118/82 97.3 F (36.3 C) Temporal 72 18 98 % 05/04/20 0520 138/67 97.2 F (36.2 C) Temporal 74 16 97 % Physical Exam Vitals signs reviewed. Constitutional: Appearance: Normal appearance. She is obese. She is ill-appearing. Cardiovascular: Rate and Rhythm: Normal rate and regular rhythm. Pulses: Normal pulses. Heart sounds: Normal heart sounds. No murmur. Pulmonary: Effort: Pulmonary effort is normal. No respiratory distress. Breath sounds: Normal breath sounds. Musculoskeletal: Normal range of motion. General: Deformity present. Right lower leg: Right lower leg edema: hand splinted, wrapped, able to flex other fingers more. Skin: General: Skin is warm. Coloration: Skin is not jaundiced. Findings: No erythema or rash. Neurological: General: No focal deficit present. Mental Status: She is alert and oriented to person, place, and time. Psychiatric: Mood and Affect: Mood normal. Thought Content: Thought content normal. Labs: Component Value Date/Time NA 138 05/03/20203 K 4.4 05/03/20203 CL 102 05/03/2020 0433 CO2 28 05/03/2020 0433 BUN 25 (H) 05/03/20203 CREATININE 1.02 05/03/20203 GLUCOSE 128 (H) 05/03/2020 0433 CALCIUM 9.3 05/03/2020 0433 PROT 7.4 05/03/2020 0433 LABALBU 3.6 05/03/2020 0433 BILITOT 0.4 05/03/2020 0433 ALKPHOS 88 05/03/2020 0433 AST 34 05/03/2020 0433 ALT 23 05/03/2020 0433 Component Value Date/Time WBC 8.6 05/03/20203 HGB 12.7 05/03/2020 0433 HCT 38.4 05/03/2020 0433 PLT 329 05/03/20203 GRANULOCYTES 64.3 05/03/2020 0433 LYMPHOPCT 24.5 05/03/2020 0433 MONOPCT 8.9 05/03/2020 0433 LABEOS 1.2 05/03/2020 0433 BASOPCT 1.1 05/03/2020 0433 NEUTROABS 5.5 05/03/2020 0433 Micro: Wound cx: MRSA BC: MRSA Follow up BC: NGTD Lines: PIV Radiography/Echo/Other: TTE: no vegetation Antimicrobials, Start/End Dates: Vancomycin 2 q 12 ( trough 15.7) Impression: L finger Osteomyeilitis w/ Staph Aureus +ve on wound Cx (s/p Ray Amputation, POD#3) MRSA bacteremia 2/2 above- no evidence of disseminated infeciton or IE Leukocytosis - Resolved Plan: If BC neg 48 hrs, OK for PICC, and plan on 14 d course from negative cultures to 05/17. OPAT order in AM. Local wound care per Surgery. * Mark Odonnell, PT - 05/04/2020 12:03 PM EST Physical Therapy Facility/Department: [facility] Initial Assessment NAME: Cecilia Herrera : 1950 Date of Service: 05/04/2020 Discharge Recommendations: Home with professional nursing assistant PT Equipment Recommendations Equipment Needed: No Assessment Assessment: Pt ambulating functional distance. Noted gait deviation but able to correct self. Encourage to increase out of bed activity and ambulate as tolerated with staff. Anticipate discharge to home with home care nursing. No acute PT treatment, will sign off. Prognosis: Good Decision Making: Low Complexity PT Education: PT Role No Skilled PT: Safe to return home REQUIRES PT FOLLOW UP: No Activity Tolerance Activity Tolerance: Patient Tolerated treatment well Patient Diagnosis(es): The encounter diagnosis was Osteomyelitis of left hand, unspecified type (HCC). has a past medical history of Diabetes mellitus (HCC) and Hypertension. has a past surgical history that includes other surgical history (Left, 05/01/2020). Restrictions Restrictions/Precautions Restrictions/Precautions: Weight Bearing Required Braces or Orthoses?: Yes Lower Extremity Weight Bearing Restrictions Left Lower Extremity Weight Bearing: Non Weight Bearing(s/p finger amputation) Required Braces or Orthoses Left Upper Extremity Brace/Splint: splint Vision/Hearing Vision: Within Functional Limits Hearing: Within functional limits Subjective General Chart Reviewed: Yes Patient assessed for rehabilitation services?: Yes Additional Pertinent Hx: DM Family / Caregiver Present: No Diagnosis: Osteomyelitis Follows Commands: Within Functional Limits General Comment Comments: Wound nfection on tip on left middle finger, s/p Ray amputation, left long finger 11/7 Subjective Subjective: Pt sitting on chair, agree with PT treatment. Pain Screening Patient Currently in Pain: Yes Pain Assessment Pain Assessment: 0-10 Pain Level: 5 Pain Type: Acute pain;Surgical pain Pain Location: Hand Pain Orientation: Left Functional Pain Assessment: Prevents or interferes some active activities and ADLs Non-Pharmaceutical Pain Intervention(s): Elevation;Ambulation/Increased Activity Vital Signs Patient Currently in Pain: Yes Orientation Orientation Overall Orientation Status: Within Functional Limits Social/Functional History Social/Functional History Lives With: Alone Type of Home: House Home Layout: One level Home Access: Level entry Bathroom Shower/Tub: Tub/Shower unit Bathroom Toilet: Standard Bathroom Equipment: Commode Bathroom Accessibility: Walker accessible Home Equipment: (NA) Receives Help From: Family ADL Assistance: Independent Homemaking Assistance: Independent Homemaking Responsibilities: Yes Ambulation Assistance: Independent Transfer Assistance: Independent Active Blindstitch Hemmer: Yes Mode of Transportation: Car Education: NA Occupation: Retired Type of occupation: NA Leisure & Hobbies: NA IADL Comments: NA Additional Comments: Ambulates without device. Cognition Cognition Overall Cognitive Status: WNL Objective Observation/Palpation Observation: dressing on left hand AROM RLE (degrees) RLE AROM: WFL AROM LLE (degrees) LLE AROM : WFL Strength RLE Strength RLE: WFL Strength LLE Strength LLE: WFL Tone RLE RLE Tone: Normotonic Tone LLE LLE Tone: Normotonic Motor Control Gross Motor?: WNL Sensation Overall Sensation Status: WFL Bed mobility Comment: NT-pt up in the chair Transfers Sit to Stand: Modified independent Stand to sit: Modified independent Ambulation Ambulation?: Yes WB Status: NWB on left hand More Ambulation?: No Ambulation 1 Surface: level tile Device: No Device Assistance: Modified Independent Gait Deviations: Slow Roma;Deviated path Distance: 80 ft Comments: deviated path but corrects self. Stairs/Curb Stairs?: No Balance Posture: Fair Sitting - Static: Good Sitting - Dynamic: Good Standing - Static: Good;- Standing - Dynamic: - Plan Plan Times per week: eval only Safety Devices Type of devices: Call light within reach, Left in chair(N95 and faceshield, pt wearing mask) Restraints Initially in place: No G-Code OutComes Score AM-PAC Score AM-PAC Inpatient Mobility Raw Score : 23 (05/04/201202) AM-PAC Inpatient T-Scale Score : 56.93 (05/04/201202) Mobility Inpatient CMS 0-100% Score: 11.2 (05/04/201202) Mobility Inpatient CMS G-Code Modifier : CI (05/04/201202) Goals Patient Goals Patient goals : eval only Therapy Time Individual Concurrent Group Co-treatment Time In 1115 Time Out 1125 Minutes 10 Mark Odonnell PT,GCS * Gustabo Bhatti MD - 05/04/2020 10:07 AM EST Hospitalist Progress Note 05/04/2020 10:07 AM [phone]: Please page me for patient care issues. [phone]: Please page [facility] night Hospitalist for any issues. Subjective: Admit Date: 04/30/2020 PCP: No primary care provider on file. Room#: [id number] Interval History: Patient is doing okay this am. Denies any chest pain or sob. No NV. No fevers or chillls. No new complaints. DIET CARB CONTROL; Carb Control: 4 carbs/meal (approximate 1800 kcals/day) Patient Vitals for the past 96 hrs (Last 3 readings): Weight 05/01/20 023 279 lb (126.6 kg) 04/30/202051 279 lb (126.6 kg) Medications: dextrose atorvastatin 40 mg Oral Daily furosemide 20 mg Oral Daily gabapentin 600 mg Oral Daily lisinopril 20 mg Oral Daily sodium chloride flush 10 mL Intravenous 2 times per day insulin lispro 0-6 Units Subcutaneous TID WC insulin lispro 0-3 Units Subcutaneous Nightly pioglitazone 15 mg Oral Daily vancomycin 15 mg/kg Intravenous Q12H sodium chloride flush 3 mL Intravenous Q8H insulin glargine 60 Units Subcutaneous Nightly LABS: CBC: Recent Labs 05/02/206 05/03/20432 WBC 10.0 8.6 RBC 3.60* 4.02 HGB 11.5* 12.7 HCT 34.1* 38.4 MCV 94.8 95.4 RDW 13.2 13.4 PLT 280 329 BMP: Recent Labs 05/02/206 05/03/20432 NA 134* 138 K 4.2 4.4 CL 103 102 CO2 23 28 BUN 18 25* CREATININE 0.80 1.02 GLUCOSE 244* 128* CALCIUM 8.9 9.3 ANIONGAP 8 7 LIVER PROFILE: Recent Labs 05/03/20432 AST 34 ALT 23 BILITOT 0.4 ALKPHOS 88 LABALBU 3.6 PROT 7.4 PT/INR: No results for input(s): PROTIME, INR in the last 72 hours. CARDIAC ENZYMES: No results for input(s): TROPONINI in the last 72 hours. Procalcitonin: No results found for: PROCAL Objective: Vitals: BP 118/82 Pulse 72 Temp 97.3 F (36.3 C) (Temporal) Resp 18 Ht 5' 5 (1.651 m) Wt 279 lb (126.6 kg) SpO2 98% BMI 46.43 kg/m Pulse Ox: SpO2 Av.3 % Min: 94 % Max: 98 % Supplemental O2: O2 Flow Rate (L/min): 1.5 L/min General appearance: No apparent distress, appears stated age and cooperative with exam HEENT: Eyes: No scleral icterus Oral: Tongue is semi-moist Cardiovascular: S1S2 heard, RRR Respiratory: Clear to auscultation bilaterally Abdomen: Soft, non-tender, non-distended with normal bowel sounds. Musculoskeletal: No obvious deformities seen Skin: No visible rashes or lesions. Left arm/hand wrapped. 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 ID following. Ortho signed off. # Positive blood cx (1 out of 2 bottles) - repeat blood cx pending but so far negative. On IV vancoand ID following. # DM type 2 with diabetic neuropathy # Chronic HTN # Dyslipidemia Plan Follow up on cultures (so far repeat blood cx negative but not finalized). Continue IV vanco as perID. Advance Directive: Full Code Discharge planning: TBD GUSTABO BHATTI DO Division of Hospitalist Medicine Inpatient Medical Services PAGER: [phone] * Deandra Freed RN - 05/04/2020 5:30 AM EST Patient's morning soak performed. Patient stated that she wants to wait for residents to round before we change the dressing. Will continue to monitor. * Roxanna Hassan MS, RD, LD - 05/03/2020 4:17 PM EST Comprehensive Nutrition Assessment Type and Reason for Visit: Initial Nutrition Recommendations/Plan: 1. Continue with Carb Control (4) diet 2. Patient declined oral nutritional supplements 3. Encouraged adequate protein intake to aid in healing 4. Suggest continue to document % meals consumed in nursing flow sheets 5. RD continue to monitor overall nutritional status and follow up weekly Nutrition Assessment: Patient presents with pain and swelling of the left middle finger. The patient states that this has been a ongoing problem for several weeks. She initially states that several weeks ago she may have been bitten by a spider or a bug which caused her finger to swell up. She saw her primary care doctor who provided her with a topical antibiotic which she has been using consistently. Patient states over the last 3 days this has swelled up dramatically and now she has reduced sensation in the finger and extreme swelling that extends down into her hand. Patient now s/p ray amputation of left long finger on 05/01/20. Patient sitting in bedside chair, just finished shower. Patient reports she is eating well and stated 'the doctor told me to eat yogurt because of antibiotics'.RD encouraged increased protein intake and offered ONS, patient declined. Malnutrition Assessment: Malnutrition Status: No malnutrition Estimated Daily Nutrient Needs: Energy (kcal): 7345-3335 (25-28); Weight Used for Energy Requirements: [place] Protein (g): 68-80 (1.2-1.4); Weight Used for Protein Requirements: [place] Fluid (ml/day): per MD; Nutrition Related Findings: +bowel sounds; LUE edema; +I&O; Alex 21; BG 128/166/145; HgbA1c 5.9% (05/01/20) Wounds: Surgical Incision Anthropometric Measures: Height: 5' 5 (165.1 cm) Current Body Weight: 279 lb (126.6 kg)(05/01) Admission Body Weight: 279 lb (126.6 kg)(stated) [place] Body Weight: 125 lbs; % [place] Body Weight 223.2 % BMI: 46.4 BMI Categories: Obese Class 3 (BMI 40.0 or greater) Nutrition Diagnosis: Increased nutrient needs related to acute injury/trauma as evidenced by wounds Nutrition Interventions: Food and/or Nutrient Delivery: Continue Current Diet Coordination of Nutrition Care: Continue to monitor while inpatient Goals: Patient consume >75% meals Nutrition Monitoring and Evaluation: Food/Nutrient Intake Outcomes: Food and Nutrient Intake Physical Signs/Symptoms Outcomes: Biochemical Data, GI Status, Fluid Status or Edema, Weight, Skin Contact: pager [phone] * Gustabo Bhatti MD - 05/03/2020 12:45 PM EST Hospitalist Progress Note 05/03/2020 12:45 PM [phone]: Please page me for patient care issues. [phone]: Please page [facility] night Hospitalist for any issues. Subjective: Admit Date: 04/30/2020 PCP: No primary care provider on file. Room#: [id number] Interval History: Patient is doing okay this am. Denies any chest pain or sob. No NV. No fevers or chillls. No new complaints. DIET CARB CONTROL; Carb Control: 4 carbs/meal (approximate 1800 kcals/day) Patient Vitals for the past 96 hrs (Last 3 readings): Weight 05/01/20 0230 279 lb (126.6 kg) 04/30/202051 279 lb (126.6 kg) Medications: dextrose atorvastatin 40 mg Oral Daily furosemide 20 mg Oral Daily gabapentin 600 mg Oral Daily lisinopril 20 mg Oral Daily sodium chloride flush 10 mL Intravenous 2 times per day insulin lispro 0-6 Units Subcutaneous TID WC insulin lispro 0-3 Units Subcutaneous Nightly pioglitazone 15 mg Oral Daily piperacillin-tazobactam 3.375 g Intravenous Q8H vancomycin 15 mg/kg Intravenous Q12H sodium chloride flush 3 mL Intravenous Q8H insulin glargine 60 Units Subcutaneous Nightly LABS: CBC: Recent Labs 05/01/2022705/02/2041505/03/20432 WBC 10.6 10.0 8.6 RBC 3.82 3.60* 4.02 HGB 12.2 11.5* 12.7 HCT 36.2 34.1* 38.4 MCV 94.7 94.8 95.4 RDW 12.9 13.2 13.4 PLT 299 280 329 BMP: Recent Labs 05/01/2022705/02/2041505/03/20432 NA 135 134* 138 K 4.6 4.2 4.4 CL 103 103 102 CO2 24 23 28 BUN 17 18 25* CREATININE 0.74 0.80 1.02 GLUCOSE 188* 244* 128* CALCIUM 9.0 8.9 9.3 ANIONGAP 7 8 7 LIVER PROFILE: Recent Labs 11/09/20 0433 AST 34 ALT 23 BILITOT 0.4 ALKPHOS 88 LABALBU 3.6 PROT 7.4 PT/INR: Recent Labs 05/01/20 0228 PROTIME 11.1 INR 1.0 CARDIAC ENZYMES: No results for input(s): TROPONINI in the last 72 hours. Procalcitonin: No results found for: PROCAL Objective: Vitals: BP (!) 144/81 Pulse 80 Temp 97.2 F (36.2 C) (Temporal) Resp 24 Ht 5' 5 (1.651 m) Wt 279 lb (126.6 kg) SpO2 95% BMI 46.43 kg/m Pulse Ox: SpO2 Av.3 % Min: 95 % Max: 99 % Supplemental O2: O2 Flow Rate (L/min): 1.5 L/min General appearance: No apparent distress, appears stated age and cooperative with exam HEENT: Eyes: No scleral icterus Oral: Tongue is semi-moist Cardiovascular: S1S2 heard, RRR Respiratory: Clear to auscultation bilaterally Abdomen: Soft, non-tender, non-distended with normal bowel sounds. Musculoskeletal: No obvious deformities seen Skin: No visible rashes or lesions. Left arm/hand wrapped. Assessment # Left middle finger and hand OM with cellulitis and secondary bacteremia, now s/p ray amputation of left long finger - on IV vanco/zosyn. ID following. Ortho signed off. # Positive blood cx (1 out of 2 bottles) - repeat blood cx pending. On IV vanco/zosyn and ID following. # DM type 2 with diabetic neuropathy # Chronic HTN # Dyslipidemia Plan Follow up on cultures and antibiotics per ID, Keep arm elevated. Packing removed this morning per ortho. Ortho states ok to start soaks TID per nursing. Ortho to sign off Advance Directive: Full Code Discharge planning: TBD GUSTABO BHATTI DO Division of Hospitalist Medicine Inpatient Medical Services PAGER: [phone] * Lashell Albright DO - 05/03/2020 11:32 AM EST [facility] - Infectious Diseases Attending Progress Note Subjective: POD#2 s/p ray amputation of left long finger Objective: Denies fevers, chills, nausea, vomiting. Endorses pain of L. Arm, controlled on pain meds. Dressingchanged this AM with wound unpacked. Vitals: Patient Vitals for the past 24 hrs: BP Temp Temp src Pulse Resp SpO2 05/03/20 0548 (!) 144/81 97.2 F (36.2 C) Temporal 80 24 95 % 05/03/20 0056 126/79 97.1 F (36.2 C) Temporal 92 18 95 % 05/02/20 1757 106/81 97.8 F (36.6 C) Temporal 92 18 96 % 05/02/20 1557 (!) 100/48 97.7 F (36.5 C) Temporal 93 20 99 % Physical Exam Vitals signs reviewed. Constitutional: General: She is not in acute distress. Appearance: Normal appearance. She is obese. She is not ill-appearing. HENT: Head: Normocephalic and atraumatic. Nose: No congestion or rhinorrhea. Mouth/Throat: Mouth: Mucous membranes are moist. Pharynx: Oropharynx is clear. Eyes: Extraocular Movements: Extraocular movements intact. Conjunctiva/sclera: Conjunctivae normal. Pupils: Pupils are equal, round, and reactive to light. Neck: Musculoskeletal: Normal range of motion and neck supple. No muscular tenderness. Cardiovascular: Rate and Rhythm: Normal rate and regular rhythm. Pulses: Normal pulses. Heart sounds: Normal heart sounds. No murmur. Pulmonary: Effort: Pulmonary effort is normal. No respiratory distress. Breath sounds: Normal breath sounds. Abdominal: General: Abdomen is flat. Bowel sounds are normal. There is no distension. Palpations: Abdomen is soft. Tenderness: There is no abdominal tenderness. Musculoskeletal: General: Deformity (s/p L long finger amputation, clean, dry dressing intact) present. Lymphadenopathy: Upper Body: Right upper body: No axillary adenopathy. Left upper body: No axillary adenopathy. Skin: General: Skin is warm. Coloration: Skin is not jaundiced. Findings: No erythema or rash. Neurological: General: No focal deficit present. Mental Status: She is alert and oriented to person, place, and time. Cranial Nerves: No cranial nerve deficit. Sensory: Sensory deficit (slight decreased tolight touch, able to bend other fingers) present. Psychiatric: Mood and Affect: Mood normal. Thought Content: Thought content normal. Labs: Component Value Date/Time NA 138 05/03/2020 0433 K 4.4 05/03/2020 0433 CL 102 05/03/2020 0433 CO2 28 05/03/2020 0433 BUN 25 (H) 05/03/2020 0433 CREATININE 1.02 05/03/2020 0433 GLUCOSE 128 (H) 05/03/2020 0433 CALCIUM 9.3 05/03/2020 0433 PROT 7.4 05/03/2020 0433 LABALBU 3.6 05/03/2020 0433 BILITOT 0.4 05/03/2020 0433 ALKPHOS 88 05/03/2020 0433 AST 34 05/03/2020 0433 ALT 23 05/03/2020 0433 Component Value Date/Time WBC 8.6 05/03/2020 0433 HGB 12.7 05/03/2020 0433 HCT 38.4 05/03/2020 0433 PLT 329 05/03/20203 GRANULOCYTES 64.3 05/03/2020 0433 LYMPHOPCT 24.5 05/03/2020 0433 MONOPCT 8.9 05/03/2020 0433 LABEOS 1.2 05/03/2020 0433 BASOPCT 1.1 05/03/2020 0433 NEUTROABS 5.5 05/03/2020 0433 Micro: BC:1/2 -NGTD ; 2/2 MRSA Surgical wound Cx - +ve Staph aureus Lines: PIV Radiography/Echo/Other: XR L hand 04/30: IMPRESSION: 1. Severely swollen third digit with severe bone destruction involving the distal phalanx to lesser extent involving the middle phalanx. Findings presumably related to osteomyelitis in the proper clinical setting. 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 Duration to follow. -D/C Zosyn -Echo pending Associated attestation - Sabrina Parsons MD - 05/03/2020 7:44 PM EST I performed a physical exam of the patient and discussed her management with the ID team. I reviewed ID note liane rowenae with internet specialist's documented findings and plan of care. Local wound care per Hand Surgery, keep hand elevated to reduce edema. If follow up BC negative, and echo unremarkable, treat for up to 2 weeks. PICC prior to discharge. Check Vanco trough prior to next dose. * Holly Hodges MD - 05/03/2020 5:56 AM EST Department of Orthopedic Surgery Resident Progress Note SUBJECTIVE Pain controlled, tolerating diet OBJECTIVE Physical VITALS: BP (!) 144/81 Pulse 80 Temp 97.2 F (36.2 C) (Temporal) Resp 24 Ht 5' 5 (1.651 m) Wt 279 lb (126.6 kg) SpO2 95% BMI 46.43 kg/m LUE: Sutures in place and c/d/i, packing in place and pulled, minimal drainage Some erythema about the incision, global swelling of hand SILT axillary/median/ulnar/radial distributions + motor AIN/PIN/ulnar nerves Data CBC: Lab Results Component Value Date WBC 8.6 05/03/2020 RBC 4.02 05/03/2020 HGB 12.7 05/03/2020 HCT 38.4 05/03/2020 MCV 95.4 05/03/2020 MCH 31.5 05/03/2020 MCHC 33.0 05/03/2020 RDW 13.4 05/03/2020 PLT 329 05/03/2020 MPV 7.9 05/03/2020 Current Inpatient Medications Current Facility-Administered Medications: perflutren lipid microspheres (DEFINITY) injection 1.65 mg, 1.5 mL, Intravenous, ONCE PRN sodium chloride flush 0.9 % injection 10 mL, 10 mL, Intravenous, PRN atorvastatin (LIPITOR) tablet 40 mg, 40 mg, Oral, Daily furosemide (LASIX) tablet 20 mg, 20 mg, Oral, Daily gabapentin (NEURONTIN) capsule 600 mg, 600 mg, Oral, Daily lisinopril (PRINIVIL;ZESTRIL) tablet 20 mg, 20 mg, Oral, Daily sodium chloride flush 0.9 % injection 10 mL, 10 mL, Intravenous, 2 times per day sodium chloride flush 0.9 % injection 10 mL, 10 mL, Intravenous, PRN acetaminophen (TYLENOL) tablet 650 mg, 650 mg, Oral, Q6H PRN OR acetaminophen (TYLENOL) suppository 650 mg, 650 mg, Rectal, Q6H PRN polyethylene glycol (GLYCOLAX) packet 17 g, 17 g, Oral, Daily PRN promethazine (PHENERGAN) tablet 12.5 mg, 12.5 mg, Oral, Q6H PRN OR ondansetron (ZOFRAN) injection 4 mg, 4 mg, Intravenous, Q6H PRN glucose (GLUTOSE) 40 % oral gel 15 g, 15 g, Oral, PRN dextrose 50 % IV solution, 12.5 g, Intravenous, PRN glucagon (rDNA) injection 1 mg, 1 mg, Intramuscular, PRN dextrose 5 % solution, 100 mL/hr, Intravenous, PRN insulin lispro (HUMALOG) injection vial 0-6 Units, 0-6 Units, Subcutaneous, TID WC insulin lispro (HUMALOG) injection vial 0-3 Units, 0-3 Units, Subcutaneous, Nightly pioglitazone (ACTOS) tablet 15 mg, 15 mg, Oral, Daily piperacillin-tazobactam (ZOSYN) 3.375 g in dextrose 50 mL IVPB extended infusion (premix), 3.375 g,Intravenous, Q8H vancomycin (VANCOCIN) 2,000 mg in dextrose 5 % 500 mL IVPB, 15 mg/kg, Intravenous, Q12H Saline lock IV, , , Continuous AND sodium chloride flush 0.9 % injection 3 mL, 3 mL, Intravenous, Q8H insulin glargine (LANTUS) injection vial 60 Units, 60 Units, Subcutaneous, Nightly ASSESSMENT AND PLAN POD 2 Ray amputation left long finger POST OPERATIVE PLAN -follow up on cultures and antibiotics per ID -Keep arm elevated -Packing removed this morning, ok to start soaks TID per nursing -Dressing changes PRN for saturation per nursing, please reapply removable splint between soaks -pain control per primary team -medical management per primary team -ortho to sign off , please page human resources compensation analyst resident with questions/concerns Holly Hodges * Gera Bronson MD - 05/02/2020 10:13 PM EST Orthopaedic Surgery to bedside to see and examine patient. Ortho was paged because patient had removed splint and threw it away. Dressings were removed and wound appeared to be healing appropriately.Splint was replaced. Patient tolerated it well. * Yolanda Machado RN - 05/02/2020 3:17 PM EST Pt asked for shower, wrapped affected hand in shower glove, instructed pt to keep hand up to avoid getting wet, pt got hand and dressing wet, nurse asked her to leave the splint in place, pt decided to throw splint away stating I do not want it , it is wet, just wrap it up, notified Dr. Goff, instructed to wrap with 4 x 4 and curlex to be up soon to redress it. * Veto Scherer MD - 05/02/2020 2:34 PM EST Hospitalist Progress Note 05/02/2020 2:34 PM [phone]: Please page me for patient care issues. [phone]: Please page [facility] night Hospitalist for any issues. Subjective: Admit Date: 04/30/2020 PCP: No primary care provider on file. Room#: 5110/[id number] I was wearing N95 mask throughout the patient encounter. Interval History: Hema had ray amputation yesterday. Pain is controlled. Has edema of right hand. No cp/sob, no n/v. DIET CARB CONTROL; Carb Control: 4 carbs/meal (approximate 1800 kcals/day) Patient Vitals for the past 96 hrs (Last 3 readings): Weight 05/01/20 0230 279 lb (126.6 kg) 04/30/20 2052 279 lb (126.6 kg) Medications: sodium chloride 75 mL/hr at 05/01/20222 dextrose atorvastatin 40 mg Oral Daily furosemide 20 mg Oral Daily gabapentin 600 mg Oral Daily lisinopril 20 mg Oral Daily sodium chloride flush 10 mL Intravenous 2 times per day insulin lispro 0-6 Units Subcutaneous TID WC insulin lispro 0-3 Units Subcutaneous Nightly pioglitazone 15 mg Oral Daily piperacillin-tazobactam 3.375 g Intravenous Q8H vancomycin 15 mg/kg Intravenous Q12H sodium chloride flush 3 mL Intravenous Q8H insulin glargine 60 Units Subcutaneous Nightly LABS: CBC: Recent Labs 04/30/20213705/01/2022705/02/20415 WBC 14.3* 10.6 10.0 RBC 3.98 3.82 3.60* HGB 12.7 12.2 11.5* HCT 38.0 36.2 34.1* MCV 95.4 94.7 94.8 RDW 13.0 12.9 13.2 PLT 311 299 280 BMP: Recent Labs 04/30/20213705/01/2022705/02/20415 NA 134* 135 134* K 4.6 4.6 4.2 CL 102 103 103 CO2 23 24 23 BUN 19 17 18 CREATININE 0.88 0.74 0.80 GLUCOSE 243* 188* 244* CALCIUM 9.0 9.0 8.9 ANIONGAP 9 7 8 LIVER PROFILE:No results for input(s): AST, ALT, BILITOT, ALKPHOS, LABALBU, PROT in the last 72 hours. PT/INR: Recent Labs 05/01/20227 PROTIME 11.1 INR 1.0 CARDIAC ENZYMES: No results for input(s): TROPONINI in the last 72 hours. Procalcitonin: No results found for: PROCAL Objective: Vitals: BP (!) 101/49 Pulse 89 Temp 98.3 F (36.8 C) (Temporal) Resp 18 Ht 5' 5 (1.651 m) Wt 279 lb (126.6 kg) SpO2 97% BMI 46.43 kg/m Pulse Ox: SpO2 Av.1 % Min: 93 % Max: 98 % Supplemental O2: O2 Flow Rate (L/min): 1.5 L/min General appearance: Awake, no acute distress noted HEENT: Eyes: No scleral icterus, pallor- Oral: Tongue is semi-moist Cardiovascular: S1S2 heard, RRR Respiratory: Normal effort, clear to auscultation bilaterally Abdomen: Soft, non-tender, non-distended with normal bowel sounds. Musculoskeletal: s/p ray amputation, left hand edema, currently open with packing visible. Skin: left hand noted as above. Neuro: intact, grossly non-focal. Assessment Left middle finger and hand cellulitis, OM with secondary bacteremia now s/p ray amputation POD#1 Leukocytosis DM2 on Actos + insulin Peripheral neuropathy Dyslipidemia Plan Had surgery, currently continued on antibiotic, culture result pending. Pain is fairly controlled. Continued ISS, recommended to take humalog per sliding scale, lantus. Actos was decreased to 15 mg daily for hypoglymeic episodes, hba1c was 5.9. DVT prophylaxis - SCDs, lovenox when ok with surgeons. Advance Directive: Full Code Discharge planning: TBD * Karen Rosario DTR - 05/02/2020 1:58 PM EST Nutrition rescreen completed. Patient referred to the Dietitian. * Riaz Remy MD - 05/02/2020 11:11 AM EST Department of Orthopedic Surgery Resident Progress Note SUBJECTIVE No complaints this AM, questions regarding care and abx thus far OBJECTIVE Physical VITALS: BP (!) 101/49 Pulse 89 Temp 98.3 F (36.8 C) (Temporal) Resp 18 Ht 5' 5 (1.651 m) Wt 279 lb (126.6 kg) SpO2 97% BMI 46.43 kg/m Well appearing Dressing CDI Data CBC: Lab Results Component Value Date WBC 10.0 05/02/2020 RBC 3.60 05/02/2020 HGB 11.5 05/02/2020 HCT 34.1 05/02/2020 MCV 94.8 05/02/2020 MCH 31.8 05/02/2020 MCHC 33.6 05/02/2020 RDW 13.2 05/02/2020 PLT 280 05/02/2020 MPV 7.9 05/02/2020 Current Inpatient Medications Current Facility-Administered Medications: atorvastatin (LIPITOR) tablet 40 mg, 40 mg, Oral, Daily furosemide (LASIX) tablet 20 mg, 20 mg, Oral, Daily gabapentin (NEURONTIN) capsule 600 mg, 600 mg, Oral, Daily lisinopril (PRINIVIL;ZESTRIL) tablet 20 mg, 20 mg, Oral, Daily sodium chloride flush 0.9 % injection 10 mL, 10 mL, Intravenous, 2 times per day sodium chloride flush 0.9 % injection 10 mL, 10 mL, Intravenous, PRN acetaminophen (TYLENOL) tablet 650 mg, 650 mg, Oral, Q6H PRN OR acetaminophen (TYLENOL) suppository 650 mg, 650 mg, Rectal, Q6H PRN polyethylene glycol (GLYCOLAX) packet 17 g, 17 g, Oral, Daily PRN promethazine (PHENERGAN) tablet 12.5 mg, 12.5 mg, Oral, Q6H PRN OR ondansetron (ZOFRAN) injection 4 mg, 4 mg, Intravenous, Q6H PRN 0.9 % sodium chloride infusion, , Intravenous, Continuous glucose (GLUTOSE) 40 % oral gel 15 g, 15 g, Oral, PRN dextrose 50 % IV solution, 12.5 g, Intravenous, PRN glucagon (rDNA) injection 1 mg, 1 mg, Intramuscular, PRN dextrose 5 % solution, 100 mL/hr, Intravenous, PRN insulin lispro (HUMALOG) injection vial 0-6 Units, 0-6 Units, Subcutaneous, TID WC insulin lispro (HUMALOG) injection vial 0-3 Units, 0-3 Units, Subcutaneous, Nightly pioglitazone (ACTOS) tablet 15 mg, 15 mg, Oral, Daily piperacillin-tazobactam (ZOSYN) 3.375 g in dextrose 50 mL IVPB extended infusion (premix), 3.375 g,Intravenous, Q8H vancomycin (VANCOCIN) 2,000 mg in dextrose 5 % 500 mL IVPB, 15 mg/kg, Intravenous, Q12H Saline lock IV, , , Continuous AND sodium chloride flush 0.9 % injection 3 mL, 3 mL, Intravenous, Q8H insulin glargine (LANTUS) injection vial 60 Units, 60 Units, Subcutaneous, Nightly ASSESSMENT AND PLAN POD 1 Ray amputation left long finger POST OPERATIVE PLAN follow up on cultures and antibiotics per ID Keep arm elevated Takedown dressing removed packing begin soaks t.i.d. on Sunday on rounds pain control per primary Attending note: Patient seen and examined independently Agree with above plan Riaz Remy * Sabrina Parsons MD - 05/02/2020 10:18 AM EST [facility] - Infectious Diseases Attending Progress Note Subjective: POD#1 ray amputation, pain controlled for now. Afebrile. Patient reprots finger swelling for months, and denied any history of trauma or paronychia. Seen by her local MD, and tried topical antibiotics without much improvement, started to peel, and increased pain for the past week, before finally going to OSH ED. Denied fevers, chills, myalgias. No prior SSTIs. Today feels well overall. Rest of PMHx per H+P , confirmed. All: Sulfa- remote, unclear as to reaction. Objective: Vitals: Patient Vitals for the past 24 hrs: BP Temp Temp src Pulse Resp SpO2 05/02/20 0533 127/72 96 F (35.6 C) Temporal 88 18 98 % 05/02/20 0152 97 F (36.1 C) Temporal 87 18 98 % 05/01/20 2105 107/67 97.7 F (36.5 C) Temporal 91 18 95 % 05/01/20 1751 99/60 97 F (36.1 C) Temporal 92 20 98 % 05/01/20 1617 (!) 96/53 97.6 F (36.4 C) Temporal 91 20 97 % 05/01/20 1600 101/78 92 16 96 % 05/01/20 1545 98/85 93 16 95 % 05/01/20 1530 (!) 96/48 93 16 94 % 05/01/20 1523 (!) 73/44 98.1 F (36.7 C) Temporal 93 16 93 % Physical Exam Vitals signs reviewed. Constitutional: General: She is not in acute distress. Appearance: Normal appearance. She is obese. She is not ill-appearing. HENT: Head: Normocephalic and atraumatic. Mouth/Throat: Mouth: Mucous membranes are moist. Pharynx: Oropharynx is clear. Eyes: Extraocular Movements: Extraocular movements intact. Conjunctiva/sclera: Conjunctivae normal. Pupils: Pupils are equal, round, and reactive to light. Neck: Musculoskeletal: Normal range of motion and neck supple. No muscular tenderness. Cardiovascular: Rate and Rhythm: Normal rate and regular rhythm. Pulses: Normal pulses. Heart sounds: Normal heart sounds. No murmur. Pulmonary: Effort: Pulmonary effort is normal. No respiratory distress. Breath sounds: Normal breath sounds. Abdominal: General: There is no distension. Palpations: Abdomen is soft. Tenderness: There is no abdominal tenderness. Musculoskeletal: General: Deformity (L hand wrapped, dried blood striekthrough) present. Lymphadenopathy: Upper Body: Right upper body: No axillary adenopathy. Left upper body: No axillary adenopathy. Skin: General: Skin is warm. Coloration: Skin is not jaundiced. Findings: No erythema or rash. Neurological: General: No focal deficit present. Mental Status: She is alert and oriented to person, place, and time. Cranial Nerves: No cranial nerve deficit. Sensory: Sensory deficit (slight decreased tolight touch, able to bend other fingers) present. Psychiatric: Mood and Affect: Mood normal. Thought Content: Thought content normal. Labs: Component Value Date/Time NA 134 (L) 05/02/2020415 K 4.2 05/02/2020415 CL 103 05/02/2020415 CO2 23 05/02/2020415 BUN 18 05/02/2020415 CREATININE 0.80 05/02/2020415 GLUCOSE 244 (H) 05/02/2020415 CALCIUM 8.9 05/02/2020415 Component Value Date/Time WBC 10.0 05/02/2020415 HGB 11.5 (L) 05/02/2020415 HCT 34.1 (L) 05/02/2020415 PLT 280 05/02/2020415 GRANULOCYTES 86.0 (H) 05/02/2020415 LYMPHOPCT 8.3 (L) 05/02/2020415 MONOPCT 5.3 05/02/2020415 LABEOS 0.0 (L) 05/02/2020 0416 BASOPCT 0.4 05/02/2020 0416 NEUTROABS 8.6 (H) 05/02/2020 0416 Micro: BC: MRSA(mecA+) Operative cx: pending Lines: PIV Radiography/Echo/Other: XR L hand 04/30: IMPRESSION: 1. Severely swollen third digit with severe bone destruction involving the distal phalanx to lesser extent involving the middle phalanx. Findings presumably related to osteomyelitis in the proper clinical setting. Antimicrobials, Start/End Dates: Vancomycin 2q 12(trough was 7.4, adjusted) Zosyn Impression: L finger OM with secondary MRSA bacteremia- POD#1 s/p ray amputation. per Hand surgery. Already on broad spectrum antibiotics. Leukocytosis from above. Plan: DC Zosyn. Continue Vancomycin for now. Duration to follow. Check TTE, and repeat BC for surveillance tomorrow. More that 51% total time 35 Minutes counseling (or coordinating care) and providing discussion regarding Staph aureus infections, epidemiology, risk factors, and treatment options. * Veto Scherer MD - 05/01/2020 11:04 AM EST Hospitalist Progress Note 05/01/2020 11:04 AM [phone]: Please page me for patient care issues. [phone]: Please page [facility] night Hospitalist for any issues. Subjective: Admit Date: 04/30/2020 PCP: No primary care provider on file. Room#: 5110/[id number] I was wearing N95 mask throughout the patient encounter. Interval History: Left 3rd finger pain controlled. No cp/sob, no n/v. Diet NPO Effective Now Exceptions are: Sips with Meds Patient Vitals for the past 96 hrs (Last 3 readings): Weight 05/01/20 0230 279 lb (126.6 kg) 04/30/202051 279 lb (126.6 kg) Medications: sodium chloride 75 mL/hr at 05/01/20 0223 dextrose atorvastatin 40 mg Oral Daily furosemide 20 mg Oral Daily gabapentin 600 mg Oral Daily lisinopril 20 mg Oral Daily sodium chloride flush 10 mL Intravenous 2 times per day insulin lispro 0-6 Units Subcutaneous TID WC insulin lispro 0-3 Units Subcutaneous Nightly [START ON 05/02/2020] pioglitazone 15 mg Oral Daily piperacillin-tazobactam 3.375 g Intravenous Q8H vancomycin 15 mg/kg Intravenous Q12H sodium chloride flush 3 mL Intravenous Q8H insulin glargine 60 Units Subcutaneous Nightly LABS: CBC: Recent Labs 04/30/20213705/01/20227 WBC 14.3* 10.6 RBC 3.98 3.82 HGB 12.7 12.2 HCT 38.0 36.2 MCV 95.4 94.7 RDW 13.0 12.9 PLT 311 299 BMP: Recent Labs 04/30/20213705/01/20227 NA 134* 135 K 4.6 4.6 CL 102 103 CO2 23 24 BUN 19 17 CREATININE 0.88 0.74 GLUCOSE 243* 188* CALCIUM 9.0 9.0 ANIONGAP 9 7 LIVER PROFILE:No results for input(s): AST, ALT, BILITOT, ALKPHOS, LABALBU, PROT in the last 72 hours. PT/INR: Recent Labs 05/01/20227 PROTIME 11.1 INR 1.0 CARDIAC ENZYMES: No results for input(s): TROPONINI in the last 72 hours. Procalcitonin: No results found for: PROCAL Objective: Vitals: BP 131/62 Pulse 85 Temp 97.9 F (36.6 C) (Temporal) Resp 18 Ht 5' 5 (1.651 m) Wt 279 lb (126.6 kg) SpO2 96% BMI 46.43 kg/m Pulse Ox: SpO2 Av.3 % Min: 96 % Max: 99 % Supplemental O2: General appearance: Awake, no acute distress noted HEENT: Eyes: No scleral icterus, pallor- Oral: Tongue is semi-moist Cardiovascular: S1S2 heard, RRR Respiratory: Normal effort, clear to auscultation bilaterally Abdomen: Soft, non-tender, non-distended with normal bowel sounds. Musculoskeletal: Left middle finger is swollen, red tender, extending to hand. Skin: left hand noted as above. Neuro: intact, grossly non-focal. Assessment Left middle finger and hand cellulitis, OM with secondary bacteremia Leukocytosis DM2 on Actos + insulin Peripheral neuropathy Dyslipidemia Plan Continue vanc + zosyn. PLanned for surgery today. Appreciate ID input. Pain is fairly controlled. Watch BGL closely, patient reports having hypoglycemic episodes on current regimen since actos 30 was started. Decrease Actos to 15 daily. DVT prophylaxis - SCDs, lovenox when ok with surgeons. Advance Directive: Full Code Discharge planning: TBD documented in this encounter Assessments Diagnosis Osteomyelitis of left hand, unspecified type (HCC) Osteomyelitis (HCC) Unspecified osteomyelitis, site unspecified Staphylococcus aureus sepsis (HCC) Methicillin susceptible staphylococcus aureus septicemia Chief Complaint and Reason for Visit Chief Complaint SCREENING 2ND COV ID SHOT 09/23/21 Chief Complaint SCREENING 2ND COV ID SHOT 09/23/21 KN PAIN/RX HERE Chief Complaint KN PAIN/RX HERE Chief Complaint Type 2 diabetes angelo itus with hyperglycemia Additional Source Comments INFORMATION SOURCE (unrecogn ized section and content) DATE CREATED AUTHOR 06/05/2019 [facility] [employer] [place] DATE CREATED AUTHOR AUTHOR'S ORGANIZ ATION 05/26/2020 [facility] [employer] DATE CREATED AUTHOR AUTHOR'S ORGANIZ ATION 07/27/2020 [employer] DATE CREATED AUTHOR AUTHOR'S ORGANIZ ATION 01/16/2025 [facility] Reason for Visit (unrecogniz ed section and content) Reason Comments Wound Infection Per patient, has wou nd to tip of left middle finger, she is unsure of how she got wound, she is a diabetic, states wound has been present for several months, has seen her PCP for this, was seen in ED this AM-got IV antibiotics and blood cultures drawn, patient here now because finger feels stiff. Goals (unrecognized section and content) Goals may be documented in a n alternate sectionGoals may be documented in an alternate sectionGoals may be documented in an alternate sectionGoals may be documented in an alternate sectionGoals may be documented in an alternate sectionGoals may be documented in an alternate sectionGoals may be documented in an alternate sectionGoals may be documented in an alternate sectionGoals may be documented in an alternate sectionGoals may be documented in an alternate sectionGoals may be documented in an alternate section Care Teams (unrecognized sec tion and content) Team Status: Active Member Role Status Dates Dr. Ankush Rios MD Family Provider Active Dr. Ankush Rios MD Primary Care Provider Active Team Status: Inactive Member Role Status Dates Dr. Ankush Rios MD Primary Care Provider, Attending Provider Active Team Status: Active Member Role Status Dates Dr. Ankush Rios MD Primary Care Provi randy, Attending Provider, Referring Provider Active Team Status: Inactive Member Role Status Dates Dr. Ankush Rios MD Primary Care Provi randy, Attending Provider, Referring Provider Active Team Status: Active Member Role/Relationship Status Dates Dr. Ankush Rios MD Family Provider Active Dr. Ankush Rios MD Primary Care Provider Active Team Status: Inactive Member Role/Relationship Status Dates Dr. Ankush Rios MD Primary Care Provider Active Start: January 09, 2025 End: January 09, 2025 Dr. Ankush Rios MD Attending Provider Active Start: January 09, 2025 End: January 09, 2025 FOR RECORDS PERTAINING TO PATIENTS WHO ARE OR HAVE BEEN ENROLLED IN A CHEMICAL DEPENDENCY/SUBSTANCEABUSE PROGRAM, SOME INFORMATION MAY BE OMITTED. This clinical summary was aggregated from multiple sources. Caution should be exercised in using it in the provision of clinical care. This summary normalizes information from multiple sources, and as a consequence, information in this document may materially change the coding, format and clinical context of patient data. In addition, data may be omitted in some cases. CLINICAL DECISIONS SHOULD BE BASED ON THE PRIMARY CLINICAL RECORDS. [facility] [employer] [facility]. provides no warranty or guarantee of the accuracy or completeness of information in this document.
[2025-04-11 14:42] VITALS: BP 112/64; PULSE 81; RESP 16; TEMP 36.8; O2SAT 97
[2025-04-11 14:47] LABS: Anion Gap 11 (5-15); BUN 13 mg/dL (4-19); BUN/Creat Ratio 18.5 RATIO (10-20); Calcium,Total 9.9 mg/dL (7.6-11.0); Carbon Dioxide 22.1 mmol/L (21.0-32.0); Chloride 103 mmol/L (98-108); Estimated Creatinine Clearance 74.51 ml/min (50-250); Glucose 125 mg/dL (70-99); Potassium 4.5 mmol/L (3.3-5.1)
[2025-04-11 15:00] VITALS: BP 118/74; PULSE 83; RESP 14; TEMP 36.8; O2SAT 98
[2025-04-11 16:25] VITALS: BP 120/68; PULSE 81; RESP 18; TEMP 37; O2SAT 97
--- NOTE | 2025-04-11 16:38 | EX.ED.UPPERE ---
HPI History of Present Illness Chief Complaint: Wound Check Narrative Narrative: 75-year-old female past medical history of hypertension and diabetes presents with numbness and wounds to her left index fingertip that she states she has had for a week. She relates history that she is to have gel nail tips, which started problems with her left index finger. She denies any fevers or chills, no nausea or vomiting. She states that the tip feels numb, and she must have banged it on an object which caused it to bleed and a wound to her fingertip before the nailbed. She is right-hand dominant. She denies any exacerbating or alleviating factors. She states that she is here for antibiotics. [facility] Medical History Hyperlipidemia HTN (hypertension) Diabetes mellitus, type II Home Medications ?Medication ?Instructions ?Recorded ?Last Taken ?Type furosemide 20 mg tablet 20 mg PO DAILY 09/26/13 04/30/20 History gabapentin 600 mg tablet 600 mg PO DAILY 09/26/13 04/30/20 History (Neurontin) insulin glargine 100 unit/mL (3 60 units subcut QHS 09/26/13 04/29/20 History mL) subcutaneous pen (Lantus Solostar U-100 Insulin) lisinopril 20 mg tablet 20 mg PO DAILY 09/26/13 04/30/20 History atorvastatin 40 mg tablet 40 mg PO QHS 05/29/18 04/29/20 History ergocalciferol (vitamin D2) 1,250 50,000 unit PO DAILY 04/30/20 Unknown History mcg (50,000 unit) capsule pioglitazone 30 mg tablet 30 mg PO DAILY 04/30/20 04/30/20 History amoxicillin 875 mg-potassium 1 tab PO BID #20 tabs 04/11/25 Unknown Rx clavulanate 125 mg tablet Allergy/AdvReac Type Severity Reaction Status Date / Time Sulfa (Sulfonamide Allergy Shortness Verified 04/11/25 13:41 Antibiotics) of breath Social History Smoking Status: Current every day smoker tobacco type: cigarettes ROS ROS ED ROS Narrative Review of systems positive for left index finger wound proximal to the nail. Positive numbness of left index fingertip. [id number]. Denies fevers or chills. Denies drainage of pus from wound. EXAM Physical Exam Narrative Exam Narrative: Afebrile. Vital signs noted. Nontoxic-appearing. Cardiovascular examination reveals a regular rate and rhythm. Lungs are clear to auscultation bilaterally. The abdomen is soft and nontender with positive bowel sounds. Inspection of the left index fingertip does show areas of eschar and ulceration. There is very thin skin on the tuft. No crepitance. There is noted soft tissue swelling. Const Vital Signs: 04/11/25 13:41 04/11/25 14:42 04/11/25 15:00 Temperature 96.6 F L 98.2 F 98.2 F Temperature Source Temporal Oral Oral Pulse Rate 97 81 83 Respiratory Rate 18 16 14 Blood Pressure 131/76 H 112/64 118/74 Blood Pressure Mean 94 80 88 Pulse Ox 97 97 98 Oxygen Delivery Method Room Air Room Air Room Air 04/11/25 16:25 Temperature 98.6 F Temperature Source Oral Pulse Rate 81 Respiratory Rate 18 Blood Pressure 120/68 Blood Pressure Mean 85 Pulse Ox 97 Oxygen Delivery Method Room Air MDM MDM MDM Narrative Medical decision making narrative: Differential diagnosis includes but not limited to cellulitis versus abscess versus osteomyelitis. The clinical picture is excessively high for osteomyelitis. I do not feel that there is an underlying fracture from trauma. We obtained laboratory work and she has normal white count of 6.7 with hemoglobin of 14.2, hematocrit 42.4, platelet count normal at 240. BMP shows glucose slightly elevated at 125 with a normal anion gap of 11. I doubt diabetic ketoacidosis given her normal anion gap. X-ray of the left index fingertip does show thinning of the skin with soft tissue swelling and is consistent with osteomyelitis on my independent interpretation. There is no air in the tissue. I reviewed the radiology report which confirms my independent interpretation. Although she does not have a fever or an elevated white count here, I am concerned about her osteomyelitis. I have low concern for sepsis based on her clinical presentation and laboratory work. Currently she is not meeting SIRS criteria. I discussed patient with Dr. Urbina with orthopedics. It was felt that this might be more of a chronic osteomyelitis, and that splinting, antibiotics and close follow-up would be reasonable. This is what the patient prefers as she is anxious for discharge. She was told the importance of follow-up with orthopedics and the very good possibility that she will require amputation of her left index fingertip. She will return with fever, new or worsening symptoms. Disposition is discharged home in stable condition. History & Record Review Discussion w/independent historian: Patient Additional record(s) reviewed:: Prior ED visit (Has not been seen in the ED since 2019) Lab Data Attestation: I reviewed the patient's lab results. Labs: Laboratory Results - last 24 hr 04/11/25 14:18 WBC 6.7 RBC 4.34 Hgb 14.2 Hct 42.4 MCV 97.7 MCH 32.7 H MCHC 33.5 RDW Std Deviation 44.8 H RDW Coeff of Unruly 12.4 Plt Count 240 MPV 10.2 Immature Gran % (Auto) 0.600 Neut % (Auto) 61.5 Lymph % (Auto) 28.3 [place] % (Auto) 7.9 Eos % (Auto) 1.3 Baso % (Auto) 0.4 Absolute Neuts (auto) 4.1 Absolute Lymphs (auto) 1.90 Nucleated RBC % 0 Sodium 136 Potassium 4.5 Chloride 103 Carbon Dioxide 22.1 Anion Gap 11 BUN 13 Creatinine 0.72 Estim Creat Clear Calc 74.51 Est GFR (MDRD) Non-Af 87 BUN/Creatinine Ratio 18.5 Glucose 125 H Calcium 9.9 Radiography Chest X-Ray - ED: Read by ED Physician, Read by Radiologist and - (Osteomyelitis of fingertip) Diagnostic Testing: Clinical Impression(s) from Imaging Studies Finger X-Ray 04/11/25 14:25 IMPRESSION: Soft tissue swelling about the 2nd digit with thinning/ulceration at the tip, with associated osteomyelitis involving the 2nd distal phalanx. Reading Location: [id number] Management Discussion w/another healthcare provider: [employer] (Dr. Urbina, orthopedics) Discharge Plan Triage Chief Complaint: Wound Check ED Provider: Bala Pelaez Dx/Rx/DC Orders Clinical Impression: Chronic osteomyelitis involving hand, History of diabetes mellitus Prescriptions: New amoxicillin-pot clavulanate 875-125 mg tablet 1 tab PO BID Qty: 20 0RF No Action gabapentin [Neurontin] 600 MG tablet 600 mg PO DAILY lisinopril 20 MG tablet 20 mg PO DAILY furosemide 20 MG tablet 20 mg PO DAILY insulin glargine [Lantus Solostar U-100 Insulin] 100 UNITS/ML insulin pen 60 units subcut QHS atorvastatin 40 MG tablet 40 mg PO QHS ergocalciferol (vitamin D2) 50,000 UNIT capsule 50,000 unit PO DAILY pioglitazone 30 MG tablet 30 mg PO DAILY Primary Care Provider: Ankush Rios Chi Referrals: Sourav Urbina DO [Med Staff - Active Staff, Orthopedics] - 2 Days Ankush Rios Chi, MD [Primary Care Provider, Geriatrics] Activity Restrictions/Additional Instructions: It is important for you to follow-up with Dr. Urbina with orthopedics. Return to the emergency department with fever, red streaking up your arm, new or worsening symptoms. Antibiotics as directed. Print Language: Telugu Disposition Disposition: Home, Self Care
== END 2025-04-11 17:03 | disposition home or self-care (01) ==
PROVIDERS: Emergency Provider Emergency Medicine; PCP Family Medicine Geriatric Medicine; Visit Provider Emergency Medicine
DX: E11.69 Type 2 diabetes mellitus with other specified complication (principal); M86.642 Other chronic osteomyelitis, left hand; Z79.4 Long term (current) use of insulin; E78.5 Hyperlipidemia, unspecified; I10 Essential (primary) hypertension; Z79.899 Other long term (current) drug therapy; F17.210 Nicotine dependence, cigarettes, uncomplicated
CPT/HCPCS: 73140; 80048; 85025; 99284; A4216